=== PATIENT | female | born 1990 | race Caucasian/White ===

== ENCOUNTER 2017-07-28 11:00 | Outpatient (RCR) | payer OTHER, SELFPAY ==
--- NOTE | 2017-03-29 09:28 | HP.PTEVAL ---
Patient's Visit Information DIEGO GIL is a 26 year old F referred to Physical Therapy by Maria Isabel Llamas DO with a diagnosis of Right Medial Meniscus Repair. Date of Evaluation: 03/29/17 Physical Therapist: Edel Joyce - Visit Plan Frequency: 3x /Week Duration: 4 Weeks Plan: Currently PWB of 60%- focus on LE strength - Subjective Subjective: Patient hurt knee during an aquatics class 07/30- has been fighting workers compensation to have surgery approved. Meniscal repair by Dr. Llamas on 03/09/17 at [facility]. Went home immediatly following surgery- lives with father- in a one story home with laundry in the basement- 4 stairs to get into the house with no rail- no problems getting in/out. Has been using axillary crutches since surgery and is 50-60% weight bearing. Saw Dr. Llamas last week who took x-rays and said everything looked good. Prior to seeing MD she was toe touch weight bearing. Sleep: hard to get comfortable- back and side sleeper- sleeping in a bed- will wake her up at night. Pain is a constant 2-3/10. Worst: 7/10 Agg: movement, riding in the car, getting in/out of the car. Its stiff if in position to long. Best: 2/10. Eases: ice and elevate. Feels like its pretty swollen and just feels stiff. Wears the brace all the time except for changing and showering. Standing/sitting in the shower depending on how much it bothers her- but will mostly sits down. Pain is located in the medial side of the knee. No radiating pain- No N/T. Describes pain as dull and achy. Back to April 19, 2016 hoping to be able weight bear. 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 PMHx: none Meds: monastrin - Objective Posture: FH, RS. Gait: axillary crutches- partial weight bearing. Girth: 6 above:65.5 cm, Patella: 45 cm, 6 below: 36 cm. ROM: 0-90 degrees. Strength: Ankle: 5/5, Knee: quad set visible, Hip: 4/5- pain with quad set. Palpation: tender along medial joint line- tender with joint mobilizations - Goals Goal 1:: Patient will be I with HEP and progression Goal Time Frame: 4-6 Weeks Goal 2:: Patient will ambulate >300 feet with a normalized gait pattern and no AD Goal Time Frame: 4-6 Weeks Goal 3:: Patient will demo 0-120 degrees of ROM in the right knee Goal Time Frame: 4-6 Weeks Goal 4:: Patient will demo equal girth to non surgical quad Goal Time Frame: 4-6 Weeks - Rehabilitation Potential Physical Therapy Diagnosis: Patient presents with hypomobility- she has decreased ROM, strength and muscular endurance leading to abnormal gait and poor ability to perform ADL's post surgical intervention Rehabilitation Potential: Good - Anticipated Interventions Patient/Client Instruction: Educate patient on: Benefits of Fitness Program For the Purpose of:: To improve performance and independence with ADL's Therapeutic Exercise to Include: Strength training, Endurance training, Balance training, Agility training, Body mechanics, Postural training, Flexibilty training, Gait and locomotor training, Passive ROM, Active ROM, Dynamic Lumbar Stabilization For the Purpose of:: To improve muscle performance and motor function TENS: Yes Cryotherapy (ice pack, ice massage): Yes Thermo therapy (hot pack): Yes Vasopneumatic device: Yes For the Purpose of:: To decrease pain, To decrease swelling/inflammation Thank you for the opportunity to evaluate your patient. For Medicare and Medicare HMO plans, please review the plan of care and approve it. It will need to be FAXED BACK to us at [phone] for Medicare purposes. Please let me know if there are questions or concerns regarding this plan of care. Physician Signature: Date:
--- NOTE | 2017-07-28 11:50 | HP.PTDCSUM_ITS ---
HP - PT D/C Summary It has been my pleasure to treat DIEGO GIL under orders from Maria Isabel Llamas DO, for the diagnosis of Right Medial Meniscus Repair for a total of 35 visit(s). Discharge Date: Please see the following information for a summary of their discharge status. - Subjective Subjective: Patient reports that she feels 98% better - Pain Right Knee Pain Intensity (Out of 10): 0 - Overall Improvement % Improvement: 98 - Objective Objective/Function: Gait no deviation running or walking. ROm: 0-130 degrees. Girth: Left: 63 cm Right: 64.5 cm. Strength: left extn: 80.8, 86.4, 74.8 right extn: 72.9, 82.4, 81.3 Left flexion: 42.5, 41.4, 42.9 right flexion: 42.8 , 43.8, 41.3 - Goals Goal 1:: Patient will be I with HEP and progression Goal Progress: Goal Met Goal 2:: Patient will ambulate >300 feet with a normalized gait pattern and no AD Goal Progress: Goal Met Goal 3:: Patient will demo 0-120 degrees of ROM in the right knee Goal Progress: Goal Met Goal 4:: Patient will demo equal girth to non surgical quad Goal Progress: Goal Met - Plan Plan: Discharge to HEP - D/C Information If there are questions or concerns regarding this patient's physical therapy, please feel free to call me at [phone]. Thank you for the referral of this patient. Sincerely, Edel Joyce
== END 2017-07-28 19:00 | disposition home or self-care (01) ==
LOC: PT 11:00
PROVIDERS: Family Provider Family Medicine; PCP Family Medicine; Visit Provider Orthopaedic Surgery
DX: Z98.890 Other specified postprocedural states (principal)
CPT/HCPCS: 97016; 97110; 97162; 97530

== ENCOUNTER → 2017-09-07 17:49 | Outpatient (CLI) | payer OTHER, SELFPAY | PROVIDERS: Family Provider Family Medicine; PCP Family Medicine; Visit Provider Physician Assistant | DX: J02.9 Acute pharyngitis, unspecified (principal) | CPT/HCPCS: 87081 ==

== ENCOUNTER → 2017-12-06 18:39 | Outpatient (CLI) | payer OTHER, SELFPAY ==
[2017-12-09 11:53] LABS: HPV Reflexed? NOT INDICATED
== END ==
PROVIDERS: Family Provider Family Medicine; PCP Family Medicine; Visit Provider Nurse Practitioner Women's Health
DX: Z12.4 Encounter for screening for malignant neoplasm of cervix (principal)
CPT/HCPCS: 88175; G0145

== ENCOUNTER → 2020-12-11 | Outpatient (CLI) | payer OTHER, SELFPAY ==
[2020-12-17 14:18] LABS: HPV Reflexed? NOT INDICATED
== END | disposition home or self-care (01) ==
PROVIDERS: PCP Family Medicine; Referring Provider Nurse Practitioner Women's Health; Visit Provider Nurse Practitioner Women's Health
DX: Z12.4 Encounter for screening for malignant neoplasm of cervix (principal)
CPT/HCPCS: 88175; G0145

== ENCOUNTER → 2020-12-12 16:31 | Outpatient (CLI) | payer OTHER, SELFPAY ==
--- NOTE | 2020-12-12 16:37 | US_ITS ---
STUDY: THYROID ULTRASOUND REASON FOR EXAM: Female, 30 years old. enlarged thyroid TECHNIQUE: Ultrasound evaluation of the thyroid was performed with real-time and static huff-scale imaging. COMPARISON: None. FINDINGS: RIGHT LOBE: The right lobe of the thyroid gland measures 5.4 x 1.8 x 1.8 cm. There is a heterogeneous echotexture. There are no demonstrated solid, cystic or complex lesions. LEFT LOBE: The left lobe of the thyroid gland measures 5.2 x 1.9 x 1.7 cm. There is a heterogeneous echotexture. There are no demonstrated solid, cystic or complex lesions. ISTHMUS: The isthmus measures 5 mm thick. . The regional lymph nodes are normal. US/Thyroid IMPRESSION: Thyroiditis but no dominant nodule. Electronically Signed: Devon Cotton MD at 12:19 EDT Tel , Service support ,
== END ==
PROVIDERS: PCP Family Medicine; Referring Provider Nurse Practitioner Women's Health; Visit Provider Nurse Practitioner Women's Health
DX: E04.9 Nontoxic goiter, unspecified (principal)
CPT/HCPCS: 76536

== ENCOUNTER 2021-05-06 13:06 | Outpatient (CLI) | payer OTHER, SELFPAY ==
--- NOTE | 2021-05-06 13:11 | US_ITS ---
STUDY: ULTRASOUND BREAST - RIGHT REASON FOR EXAM: Female, 30 years old. Palpable lump in the right breast. TECHNIQUE: Axial and longitudinal images of the RIGHT breast were performed with a high resolution ultrasound transducer. # OF IMAGES: 22 COMPARISON: Comparison is made with prior mammogram done earlier today. FINDINGS: RIGHT Breast: The palpable abnormality corresponds to a 1.7 cm x 1.3 cm x 1.1 cm irregular heterogeneous nodular density at the 8 o''clock position of the breast at 2 cm from the nipple. Calcifications are seen within it. A biopsy is strongly recommended. US/Breast Limited Unilateral IMPRESSION: 1.7 cm x 1.3 cm x 1.1 cm irregular heterogeneous nodular density at the o''clock position of the breast at 2 cm from nipple. Increased vascularity and calcifications are seen. Biopsy is strongly recommended. ASSESSMENT CATEGORY: BIRADS Category 5: Highly Suggestive of Malignancy - Appropriate Action Should Be Taken. A letter regarding these results will be sent to the patient by the facility within 30 days. Electronically Signed: August Beach MD at 15:13 EST ,
--- NOTE | 2021-05-06 13:11 | BI_ITS ---
MAMMOGRAPHY - BILATERAL DIAGNOSTIC REASON FOR EXAM: Female, 30 years old. Right breast lump just inferior and lateral to the right nipple. PERTINENT HISTORY: Aunt with breast cancer. TECHNIQUE: Digital bilateral breast francisco (3D mammographic acquisition) in the CC and MLO projections. 2-D mediolateral oblique (MLO) and craniocaudad (CC) views of both breasts were obtained. CAD: Full Field Digital Mammography with Computer Added Detection was performed. COMPARISON: None. Baseline examination. FINDINGS: Breast Composition: The breasts are extremely dense, which lowers the sensitivity of mammography. The palpable and abnormality corresponds to a 1.9 cm x 0.7 cm nodular density with microcalcifications in the slightly upper lateral portion of the right breast. Correlation with ultrasound is recommended. Small benign-appearing bilateral axillary lymph nodes. No other significant abnormalities are identified. BI/DIAG MAMM W/CAD, BILAT IMPRESSION: The palpable normality corresponds to a 1.9 cm x 0.7 cm nodule with microcalcifications in the slightly upper lateral aspect of the right breast. Correlation with ultrasound is recommended. ASSESSMENT CATEGORY: BIRADS Category 0: Incomplete. Need additional imaging evaluation. A letter regarding these results will be sent to the patient by the facility within 30 days. Approximately 10% of breast cancers are not detected by mammography. A normal mammogram should not delay biopsy of a clinically suspicious abnormality. Electronically Signed: August Beach MD at 14:19 EST ,
== END 2021-05-06 23:59 | disposition short-term general hospital (02) ==
LOC: OPBI 13:08
PROVIDERS: PCP Family Medicine; Referring Provider Nurse Practitioner Women's Health; Visit Provider Nurse Practitioner Women's Health
DX: N63.10 Unspecified lump in the right breast, unspecified quadrant (principal)
CPT/HCPCS: 76642; 77062; 77066; G0279

== ENCOUNTER 2021-05-07 13:11 | Outpatient (CLI) | payer OTHER, SELFPAY ==
--- NOTE | 2021-05-07 | IMM_PTH ---
PATIENT: DIEGO GIL LOC: [facility] U#:[id number] AGE/SX: 30/F ROOM: RE05/07/[address]: Dr. Des Acosta MD : 1990 BED: DIS: 05/07/2021 SPEC #: [id number] RECD: 05/08/21 10:23 STATUS: LARA REQ #: [id number] KHARI: 05/07/21 00:[address]: Des Acosta DEPT: IMMUNOHISTOCHEMISTRY RECD BY: Elyse Gonzalez ENTERED: 05/08/21 10:25 SP TYPE: IMMUNO OTHR DR: Dr. Chas Bazzi DO Tissues: Right breast, NOS Procedures: CALPONIN-1 (add) CK5-6 (add) CK8 (add) E-CAD (add) HER2 TYRON (add) KI-67 (add) P53 (add) CA (add) P40 (add) ER (initial) PHYSICIAN & [address] [address] SPECIMEN INFORMATION: Tissue Source: Right breast Clinical Info: Right breast mass Specimen Number: [id number] CPT code: 30137, 77032 x6, 12647 x3 METHODOLOGY: Deparaffinized sections of prefer/formalin-fixed tissue or PAP/DQ stained slides are incubated with monoclonal/polyclonal antibodies/oligonucleotide probes. Localization is made via biotin free immunoperoxidase method. Appropriate controls are performed and reacted as expected. Results on target cell population are indicated in the following table: RESULTS: ANTIBODY / CLONE RESULT E-Cad (ECH-6) positive CK8 (14zdeyS77) positive Calponin-1 (AK980U) negative CK5-6 (D5 & 1684) positive, focal P40 (BC28) positive, rare cells P53 (DO-7) positive, focal Ki-67 (30-9) positive, moderate, ~40% MORPHOMETRIC ANALYSIS ER (clone 6F11) 66%, weak intensity CA (clone 16/1E2) 7%, weak intensity Her-2Neu (clone CB11) 3+ The prognostic test for HER2 is performed on formalin-fixed paraffin embedded tissue. A 3+ (positive) staining pattern is defined as intense, homogeneous, complete, circumferential membranous staining in >10% of contiguous tumor cells. A similar weak (2+) staining pattern is interpreted as equivocal. RICHARD follow-up testing is recommended for all equivocal cases. Positivity/negativity for ER/CA is reported if > or < 1% of the tumor cells are immuno- reactive, respectively. The ASCO/CAP criteria is used for scoring. Reference: Journal of Clinical Oncology, 2013; 31:0209-4068 & 2010; 16:4980-9998. Duration of fixation: 8 Hrs; Sample Adequate: Yes. These assays have not been validated on decalcified tissues. Results should be interpreted with caution given the likelihood of false negativity on decalcified specimens. These tests were developed and their performance characteristics determined by [facility]. They may not have been cleared or approved by the U.S. Food and Drug Administration. The FDA has determined that such clearance or approval is not necessary. The above immunohistochemical/dualISH markers are ordered and reviewed by the Pathologist. INTERPRETATION: Right breast, biopsy: Invasive ductal carcinoma, nuclear grade 2. Positive for estrogen receptors (favorable prognostic indicator). Positive for progesterone receptors (favorable prognostic indicator). Positive for overexpression of LPD6krb. SJ:thomas 05/11/2021
--- NOTE | 2021-05-07 11:30 | BRBX_PTH ---
PATIENT: DIEGO GIL LOC: [facility] U#:[id number] AGE/SX: 30/F ROOM: RE05/07/[address]: Dr. Des Acosta MD : 1990 BED: DIS: 05/07/2021 SPEC #: [id number] RECD: 05/07/21 12:08 STATUS: LARA REMyrtle #: [id number] KHARI: 05/07/21 11:[address]: Des Acosta DEPT: SURGICAL PATHOLOGY RECD BY: Chanda Justice ENTERED: 05/07/21 13:30 SP TYPE: BREAST BX OTHR DR: Dr. Chas Bazzi, DO Tissues: Right breast, NOS Procedures: Surgery Specimen Level IV HEADER OPERATION: Right breast biopsy PRE-OP DIAGNOSIS: Right breast mass TISSUE SUBMITTED: Right breast tissue MICROSCOPIC DIAGNOSIS Right breast mass, core biopsy: Invasive ductal carcinoma, nuclear grade 2 (1.2 cm in greatest length). See comment. SJ:thomas 05/08/2021 COMMENT Immunohistochemistry ([id number]) supports the above diagnosis. ER/AK/Tuc1ntj studies are being performed on sections of tumor and the results from this study will be reported separately ([id number]). Case has been reviewed in consultation with Dr. Murphy who concurs with the above diagnosis. IDC:AM MICROSCOPIC DESCRIPTION Slides are reviewed. GROSS DESCRIPTION Received in fixative is one container labeled with the patient's name and designated right breast. The specimen consists of multiple elongated fragments of lópez-yellow fibroadipose tissue that in aggregate measure 2.5 x 0.3 x 0.1 cm. The entire specimen is submitted in one cassette. / SERENE:thomas 05/07/2021 TC:0 CPT: 11273 ADDENDUM ADDENDUM ADDENDUM ADDENDUM ADDENDUM ADDENDUM ADDENDUM ADDENDUM ADDENDUM ADDENDUM ADDENDUM 10/13/2021 09:39 ADDENDUM 10/13/2021 09:39 ADDENDUM 10/13/2021 09:39 ADDENDUM 10/13/2021 09:39 ADDENDUM 10/13/2021 09:39 This addendum is added to incorporate an outside pathology consultation report. The case was examined at [facility] (#[id number]) and the following diagnosis was rendered. Right breast mass, core biopsy: Invasive ductal carcinoma, grade 2 (score: tubule 3, nuclear 2, mitotic 1), 1.2 cm in greatest length. Please see complete above mentioned consultation report in EMR
== END 2021-05-07 23:59 | disposition short-term general hospital (02) ==
LOC: LABSPEC 13:16
PROVIDERS: PCP Family Medicine; Visit Provider Surgery
DX: C50.911 Malignant neoplasm of unspecified site of right female breast (principal)
CPT/HCPCS: 88305; 88341; 88342

== ENCOUNTER 2021-05-13 11:58 | Outpatient (CLI) | payer OTHER, SELFPAY ==
--- NOTE | 2021-05-13 12:00 | US_ITS ---
STUDY: SUPERFICIAL ULTRASOUND - RIGHT AXILLARY REGION. REASON FOR EXAM: Female, 30 years old. BREAST CA, ASSESS LYMPH NODES -- ATTN: RIGHT AXILLA TECHNIQUE: A superficial ultrasound was performed with real-time and static huff-scale imaging. COMPARISON: None. FINDINGS: The right axillary region was examined by ultrasound. No sonographic abnormality is seen. US/Ext Non Vasc Limited/Soft Tiss IMPRESSION: No sonographic abnormality is seen. Electronically Signed: August Beach MD at 13:26 EST ,
== END 2021-05-13 23:59 | disposition short-term general hospital (02) ==
LOC: OPUS 11:58
PROVIDERS: PCP Family Medicine; Visit Provider Internal Medicine Hematology & Oncology
DX: C50.911 Malignant neoplasm of unspecified site of right female breast (principal)
CPT/HCPCS: 76882

== ENCOUNTER 2021-05-22 09:24 | Day surgery (SDC) | payer OTHER, SELFPAY ==
[2021-05-22] MEDS: Lactated Ringers 1,000 ML 15 ML IV (09:48)
[2021-05-22 09:49] VITALS: BP 117/77; PULSE 99; RESP 16; TEMP 37.1; O2SAT 100; BMI 33.5
--- NOTE | 2021-05-22 09:57 | HP.PCM.SX_ITS ---
HPI - General HPI Narrative DIEGO GIL, is a 30 F who presents for port placement. Patient was recently diagnosed with right breast cancer and requires port for neoadjuvant therapy. [facility] Medical History (Updated 05/22/21 @ 09:[address] Des Acosta MD) Alcohol use Breast cancer of upper-outer quadrant of right female breast Cancer Chronic headaches COVID-19 Depression Encounter for education Fibromyalgia Injury of head and neck Kidney stones Non-smoker Wears contact lenses Home Medications lidocaine-prilocaine 2.5 %-2.5 % topical cream 1 applic TOPICAL ONCE PRN 30 Days #30 g 05/13/21 [Rx Last Taken Unknown] ondansetron 8 mg disintegrating tablet 8 mg PO Q8H PRN #30 tab 05/13/21 [Rx Last Taken Unknown] prochlorperazine maleate 10 mg tablet 10 mg PO Q6H PRN #30 tab 05/13/21 [Rx Last Taken Unknown] Allergy/AdvReac Type Severity Reaction Status Date / Time FLU VACCINE Allergy Hives Uncoded 05/22/21 09:34 Family History Father Alcoholism Mother Hypertension Hyperlipidemia Aunt Breast cancer 2 great aunts - both maternal 1 aunt - paternal Surgical History S/P medial meniscus repair of right knee S/P tonsillectomy Social History household members: other details: fiancee current occupational status: employed 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 Smoking Status: Never smoker Electronic Cigarette Use: not used second hand exposure: Yes alcohol intake: current alcohol intake frequency: holidays/special occasions only details: occasionally/socially substance use type: does not use caffeine: No seatbelt use: always do you feel safe at home: Yes Vital Signs Vital Signs Vital Signs: 05/22/21 09:49 Temperature 98.7 F Temperature Source Temporal Pulse Rate 99 Respiratory Rate 16 Respiratory Pattern Normal Blood Pressure 117/77 Blood Pressure Mean 90 Blood Pressure Source Monitor Blood Pressure Position Semi-Fowlers Blood Pressure Location Right Arm Pulse Ox 100 Oxygen Delivery Method Room Air Weight Weight: 189 lb 9.561 oz Body Mass Index (BMI) 33.5 Physical Exam Const alert and oriented x3 Resp normal respiratory effort and normal air movement Cardio regular rate and regular rhythm GI soft to palpation, non-tender and non-distended Assessment and Plan Assessment and Plan (1) Encounter for insertion of venous access port: Status: Acute Plan: Patient requires chest port for neoadjuvant therapy for right breast cancer. Plan for left chest port placement utilizing left IJ. I discussed the risks with her including over the limited to bleeding, infection, pneumothorax or line infection and DVT. Patient understands the risks and is willing to proceed. Des Acosta MD Pager: [facility] [address] [place] [address], [address] [place] [address] Office:
[2021-05-22 10:00] LABS: Internal QC Validated? YES +Cl - CLEAR BKGD; Pregnancy, Urine Negative Negative
[2021-05-22] MEDS: Cefazolin 2 GM in 0.9% Normal Saline 100 ML IV (10:41)
[2021-05-22] MEDS: Lidocaine 1%/Epi 1:200 (30ml) 30 ML AMPUL (10:41)
--- NOTE | 2021-05-22 10:41 | RAD_ITS ---
STUDY: X-RAY CHEST REASON FOR EXAM: Female, 30 years old. Line placement -- in pacu TECHNIQUE: Single AP portable view of the chest. COMPARISON: None. FINDINGS: A left-sided portacatheter is in place. The tip is at the junction of the superior vena cava and right atrium. The lungs are clear and expanded. There is no demonstrated pleural abnormality. Normal size heart. Normal mediastinum and megan. Normal visualized pulmonary arteries. Normal visualized aortic arch and descending thoracic aorta. Normal visualized thoracic spine. Normal visualized ribs, clavicles, and shoulders. There is no demonstrated abnormality of the visualized soft tissue structures of the upper abdomen. RAD/O.R. Fluoro for CVP/PICC/PORT IMPRESSION: The tip of the left-sided moon catheter is at the junction of the superior vena cava and right atrium. Electronically Signed: August Beach MD at 12:12 EST ,
[2021-05-22 11:14] VITALS: BP 115/67; BP 117/77; PULSE 90; RESP 16; TEMP 37.3; O2SAT 100
[2021-05-22 11:20] VITALS: BP 108/62; BP 117/77; PULSE 89; RESP 14; O2SAT 99
--- NOTE | 2021-05-22 11:21 | RAD_ITS ---
STUDY: X-RAY CHEST REASON FOR EXAM: Female, 30 years old. Line placement -- in pacu TECHNIQUE: Single AP portable view of the chest. COMPARISON: None. FINDINGS: A left-sided portacatheter is in place. The tip is at the junction of the superior vena cava and right atrium. The lungs are clear and expanded. There is no demonstrated pleural abnormality. Normal size heart. Normal mediastinum and megan. Normal visualized pulmonary arteries. Normal visualized aortic arch and descending thoracic aorta. Normal visualized thoracic spine. Normal visualized ribs, clavicles, and shoulders. There is no demonstrated abnormality of the visualized soft tissue structures of the upper abdomen. RAD/CXR for Line Placement IMPRESSION: The tip of the left-sided moon catheter is at the junction of the superior vena cava and right atrium. Electronically Signed: August Beach MD at 12:12 EST ,
--- NOTE | 2021-05-22 11:21 | PCM.OPRPT ---
Problems Associated Problem List Diagnoses (1) Encounter for insertion of venous access port: Report of Operation Date of Procedure: 05/22/21 Pre-Operative Diagnosis: Need for vascular access port Post-Operative Diagnosis: Same Surgery/Procedure Performed:: Ultrasound and fluoroscopy guided left chest port placement utilizing left IJ Description of Procedure: After obtaining informed consent patient was brought back to the operating room MAC anesthesia was induced and the left chest and neck were prepped in normal sterile fashion. Ultrasound was used to evaluate both IJs and the left IJ was selected. Next, using a needle, the left IJ was accessed and a guidewire was passed on into the superior vena cava under fluoroscopy guidance. A small incision was made over the puncture site and the dilator introducer was placed over the guidewire. Next this was capped and the pocket was made for the port. 1% lidocaine with epinephrine was injected in the proposed port site. An incision was made with scalpel. Electrocautery was used to make a pocket under the skin and subcutaneous tissue. Hemostasis was obtained. Next, the catheter was tunneled up to the neck incision site and placed through the introducer. The peel-away introducer was removed and the position of the catheter was confirmed on fluoroscopy. Next, the catheter was trimmed and attached to the port with the locking device. Interrupted 2-0 Vicryl sutures were used to anchor the port to the chest wall and then the port was placed inside the pocket. The pocket was then flushed with saline and the port irrigated with saline. There was good blood return and the port flushed easily. Next, heparin was injected into the port. The skin was closed with subcutaneous interrupted 3-0 Vicryl sutures. A single 3-0 Vicryl sutures placed under the skin at the neck incision site. Steri-Strips were placed as well as op sites. Patient tolerated procedure well, was taken to PACU in stable condition. Chest x-ray will be obtained. Grafts/Implants Used: 8 [employer]es PowerPort Admit VTE Documentation VTE Mechan Device Prophylaxis: SCD's
[2021-05-22 11:25] VITALS: BP 109/67; BP 117/77; PULSE 87; RESP 14; O2SAT 99
--- NOTE | 2021-05-22 11:25 | EX.PCM.DISCH ---
Discharge Instructions Procedure Port-A-Cath Diet Discharge Diet: Light diet - advance as tolerated (Pain medication may cause nausea. You should typically eat light foods as you take your pain medication.) Activity Discharge Activity: Return to Normal Activity and May Shower (with your bandage in place in 1-2 days after surgery. DO NOT SHOWER WHEN YOUR PORT IS ACCESSED.) Dressing / Incision Call your doctor if your incision/area has: Continuous Slow Oozing, Sudden Increased Bleeding, Increased Pain/ Swelling, Increased Redness and Foul Smelling Discharge Call your doctor if you observe: Fever of 101 or Higher Remove Dressing in: 2 days (Remove bandages in 2 days, remove Steri-Strips in 7 to 10 days.) Cleanse incision/area with: Soap & Water Follow Up Care Please Follow Up With: Des Acosta MD When: as needed [phone] Test Results: Test results from this visit will be discussed in further detail at your follow-up appointment, if applicable. Discharge Plan Admission Attending Provider: Des Acosta Primary Care Provider: Chas Bazzi Discharge Orders/Prescriptions Prescriptions: No Action prochlorperazine maleate 10 mg tablet 10 mg PO Q6H PRN (Reason: nausea and vomiting) Qty: 30 RF: 2 ondansetron 8 mg tablet,disintegrating 8 mg PO Q8H PRN (Reason: nausea and vomiting) Qty: 30 RF: 2 lidocaine-prilocaine 2.5-2.5 % cream 1 applic topical ONCE PRN (Reason: port access) 30 Days Qty: 30 RF: 2 Referrals / Follow Up: Chas Bazzi DO [Primary Care Provider] - Disposition Disposition (needs filled in before D/C Order can be placed): Home, Self Care
[2021-05-22 11:30] VITALS: BP 106/63; BP 117/77; PULSE 86; RESP 16; TEMP 37.1; O2SAT 99
[2021-05-22 12:35] VITALS: BP 105/63; BP 117/77; PULSE 85; RESP 16; TEMP 36.6; O2SAT 100
== END 2021-05-22 23:59 | disposition home or self-care (01) ==
LOC: SDC 09:25 → AC 09:26
PROVIDERS: Anesthesiology; PCP Family Medicine; Referring Provider Surgery; Visit Provider Surgery
PROC: (CPT 36561; principal; 2021-05-22 10:45)
DX: Z45.2 Encounter for adjustment and management of vascular access device (principal); C50.411 Malignant neoplasm of upper-outer quadrant of right female breast; F32.A Depression, unspecified; Z86.16 Personal history of COVID-19; M79.7 Fibromyalgia
CPT/HCPCS: 36561; 00532; 71045; 77001; 81025; C1788

== ENCOUNTER 2021-05-29 09:44 | Outpatient (CLI) | payer OTHER, SELFPAY ==
--- NOTE | 2021-05-29 09:48 | MRI_ITS ---
STUDY: BILATERAL BREAST MR WITHOUT AND WITH CONTRAST REASON FOR EXAM: Female, 30 years old. Newly diagnosed right breast cancer. TECHNIQUE: Multi-sequence multi-echo imaging of both breasts was performed with a dedicated breast coil. T1-weighted and T2-weighted images were performed before the administration of contrast. T1-weighted images were also performed after the administration of 17 ml of Dotarem contrast without complications. COMPARISON: Bilateral mammograms dated 05/06/2021, right diagnostic mammogram dated 05/06/2021 and right breast ultrasound dated 05/06/2021. FINDINGS: RIGHT BREAST: The breast tissue is heterogeneously dense with no background enhancement. Irregular enhancing mass in the right breast at the 8 o''clock position measuring 2.9 cm x 3.2 cm x 2.1 cm and corresponding to the ultrasonographic abnormality. LEFT BREAST: The breast tissue is heterogeneously dense with no background enhancement. There are no abnormal enhancing masses or areas of non-mass enhancement in the left breast. Shotty axillary lymph nodes bilaterally. There is no abnormality in the visualized regions of the chest or liver. MRI/Breast Bilateral W/O and W IMPRESSION: Right irregular enhancing mass at the 8 o''clock position corresponding to the ultrasonographic abnormality. No other suspicious masses or abnormal lymph nodes. CATEGORY: BIRADS Category 6: Known Biopsy-Proven Malignancy - Appropriate Action Should Be Taken. A letter regarding these results will be sent to the patient by the facility within 30 days. Electronically Signed: Joshua Garland MD at 12:08 EST ,
--- NOTE | 2021-05-29 09:48 | ECHODONC_ITS ---
Reason For Study: Pre Chemo, Rt Breast CA Procedure This was a 2D Doppler, Color Flow transthoracic echocardiogram. Myocardial strain analysis was performed in this exam to aid in the assessment of cardiac function. Exam performed in department. Left Ventricle Normal LV size. Left ventricular systolic function is normal. The estimated ejection fraction is 60 %. The global longitudinal strain = -20 % (normal). No evidence for diastolic dysfunction. No regional wall motion abnormalities noted. Right Ventricle Normal RV size. Normal systolic function. Atria Normal left atrium. Normal right atrium. No doppler evidence for ASD. Mitral Valve There is no mitral annular calcification. Equivocal mitral valve prolapse. Trivial mitral valve insufficiency. Tricuspid Valve Normal tricuspid valve. Trivial tricuspid valve insufficiency. Right ventricular systolic pressure estimated to be 21 mmHg. Aortic Valve Trisinus/trileaflet aortic valve. Normal aortic valve. Pulmonic Valve The pulmonic valve is not well visualized. Mild (1+) pulmonic valve insufficiency. Great Vessels Normal sized aortic root. Pericardium/Pleural No pericardial effusion. MMode/2D Measurements & Calculations LVIDd: 5.2 cm IVSd: 0.62 cm Ao root diam: 2.4 cm LVIDs: 3.4 cm LVPWd: 0.64 cm RVDd: 3.3 cm FS: 34.1 % LAV(MOD-bp): 32.0 ml LA A4 area: 13.4 cm2 LA dimension(2D): 3.1 cm LAV(MOD-bp) Indexed: 16.9 ml/m2 LAV(MOD-sp2): 28.4 ml LAV(MOD-sp4): 28.9 ml RA A4 area: 12.4 cm2 Doppler Measurements & Calculations MV E max jonathon: 81.9 cm/sec Lat Peak E' Jonathon: 17.8 cm/sec Med Peak E' Jonathon: 15.2 cm/sec MV A max jonathon: 49.8 cm/sec E/E' lat: 4.6 E/E' med: 5.4 MV E/A: 1.6 Ao V2 max: 119.7 cm/sec LV V1 max: 83.4 cm/sec PA V2 max: 84.6 cm/sec Ao max P.7 mmHg LV V1 max P.8 mmHg Ao V2 mean: 82.6 cm/sec Ao mean P.0 mmHg Ao V2 VTI: 24.4 cm PI end-d jonathon: 87.1 cm/sec TR max jonathon: 213.8 cm/sec TR max P.3 mmHg ECHO/ONC Echo Complete Interpretation Summary Left ventricular systolic function is normal. The estimated ejection fraction is 60 %. The global longitudinal strain = -20 % (normal). Equivocal mitral valve prolapse. Trivial mitral valve insufficiency. Trivial tricuspid valve insufficiency. Mild (1+) pulmonic valve insufficiency. Right ventricular systolic pressure estimated to be 21 mmHg. No evidence for diastolic dysfunction. Ordering Physician: Thierry Carrizales Referring Physician: Chas Bazzi Performed By: Sandra Estrada RDCS, RVT
== END 2021-05-29 23:59 | disposition home or self-care (01) ==
LOC: MRI 09:45
PROVIDERS: PCP Family Medicine; Referring Provider Internal Medicine Hematology & Oncology; Visit Provider Internal Medicine Hematology & Oncology
DX: C50.511 Malignant neoplasm of lower-outer quadrant of right female breast (principal); I37.1 Nonrheumatic pulmonary valve insufficiency
CPT/HCPCS: 77049; 93306; 93356; A9575; A4216; C8908

== ENCOUNTER 2021-06-02 09:26 | Inpatient (IN) | payer OTHER, SELFPAY ==
[2021-06-02] VITALS (13 sets, daily range): BP systolic 89–123; BP diastolic 45–74; PULSE 89–112; RESP 15–26; TEMP 37.2–39.3; O2SAT 95–99; BMI 33.6; BMI 34.7
--- NOTE | 2021-06-02 09:42 | RAD_ITS ---
STUDY: X-RAY CHEST REASON FOR EXAM: Female, 30 years old. Fever, chemo, pneumonia TECHNIQUE: PA and lateral views of the chest. COMPARISON: Comparison is made with prior study dated 05/22/2021. FINDINGS: A left-sided portacatheter is seen with the tip at the junction of the superior vena cava and right atrium. The lungs are clear and expanded. There is no demonstrated pleural abnormality. Normal size heart. Normal mediastinum and megan. Normal visualized pulmonary arteries. Normal visualized aortic arch and descending thoracic aorta. Normal visualized thoracic spine. Normal visualized ribs, clavicles, and shoulders. There is no demonstrated abnormality of the visualized soft tissue structures of the upper abdomen. RAD/Chest PA and Lateral IMPRESSION: Normal x-ray examination of the chest. Electronically Signed: August Beach MD at 10:51 EST ,
--- NOTE | 2021-06-02 09:46 | EX.ED.DYSGE1 ---
HPI History of Present Illness Chief Complaint: Fever Informant: patient Narrative Narrative: Patient presents with fever. This patient is overall healthy other than being recently diagnosed with breast cancer. She had a Mediport placed in the left upper chest 11 days ago. This has been doing well and was used yesterday for her first ever chemotherapy. She started having fevers in the middle of the night. She does not have specific symptoms of infection such as cough, sinus congestion, rash, sore areas dysuria etc. The patient did have Covid back in February. She states she has had a small lingering cough ever since but it is not worsening or changing. She is not short of breath. She has not been having continual fevers from then. However, she did have a fever 2 weeks ago on Tuesday. It went away so they still did the Mediport. She then had another slight fever that was lower grade 1 week ago on Tuesday. This is now her third Tuesday with a fever and this 1 is higher than the others. There has been no travel. Nothing makes this better or worse. She contacted her oncologist who recommended she come in here for evaluation and work-up. [facility] Medical History Alcohol use Breast cancer of upper-outer quadrant of right female breast Cancer Chronic headaches COVID-19 Depression Encounter for education Fibromyalgia Injury of head and neck Kidney stones Non-smoker Wears contact lenses Home Medications lidocaine-prilocaine 2.5 %-2.5 % topical cream 1 applic TOPICAL ONCE PRN 30 Days #30 g 05/13/21 [Rx Last Taken Unknown] ondansetron 8 mg disintegrating tablet 8 mg PO Q8H PRN #30 tab 05/13/21 [Rx Last Taken Unknown] prochlorperazine maleate 10 mg tablet 10 mg PO Q6H PRN #30 tab 05/13/21 [Rx Last Taken Unknown] Allergy/AdvReac Type Severity Reaction Status Date / Time FLU VACCINE Allergy Hives Uncoded 06/02/21 09:30 Family History Father Alcoholism Mother Hypertension Hyperlipidemia Aunt Breast cancer 2 great aunts - both maternal 1 aunt - paternal Surgical History S/P medial meniscus repair of right knee S/P tonsillectomy Social History household members: other details: serena current occupational status: employed 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 Smoking Status: Never smoker Electronic Cigarette Use: not used second hand exposure: Yes alcohol intake: current alcohol intake frequency: holidays/special occasions only details: occasionally/socially substance use type: does not use caffeine: No seatbelt use: always do you feel safe at home: Yes ROS ROS ED Constitutional Constitutional ED: Reports chills, fever(s) and subjective Eyes Eyes: Denies blurry vision ENT ENT ED: Denies rhinorrhea or sore throat Cardiovascular Cardiovascular: Denies chest pain or palpitations Respiratory/Chest Respiratory/Chest: Reports cough and other Details: Very mild chronic cough since Covid but no recent change. ; Denies dyspnea or sputum Gastrointestinal Gastrointestinal: Denies diarrhea, nausea or vomiting Genitourinary Genitourinary ED: Denies dysuria, hematuria or urinary frequency Musculoskeletal Musculoskeletal: Denies myalgias Integumentary Denies rash Neurologic Neurologic: Denies headache(s) Endocrine Endocrinology: Denies polydipsia or polyuria Allergic/Immunologic Allergic/Immunologic ED: Denies mouth swelling or urticaria EXAM Physical Exam Const Vital Signs: 06/02/21 09:28 06/02/21 09:31 06/02/21 10:18 Temperature 100.5 F H 100.5 F H 100.5 F H Temperature Source Oral Oral Oral Pulse Rate 112 H 112 H 112 H Respiratory Rate 18 18 18 Respiratory Effort Respiratory Pattern Blood Pressure 123/70 H 123/70 H 123/70 H Blood Pressure Mean 87 87 87 Pulse Ox 99 99 99 Oxygen Delivery Method Room Air Room Air Room Air 06/02/21 10:19 06/02/21 11:39 06/02/21 12:20 Temperature 99.3 F H 99.1 F Temperature Source Temporal Oral Pulse Rate 89 99 Respiratory Rate 16 18 Respiratory Effort Normal Non-Labored Respiratory Pattern Normal Blood Pressure 90/45 L 95/53 L Blood Pressure Mean 60 67 Pulse Ox 99 Oxygen Delivery Method Room Air Room Air 06/02/21 14:33 06/02/21 16:31 06/02/21 17:01 Temperature 102.1 F H 101.7 F H Temperature Source Oral Oral Pulse Rate 103 H 107 H Respiratory Rate 26 H 18 Respiratory Effort Respiratory Pattern Blood Pressure 110/74 89/47 L 91/47 L Blood Pressure Mean 86 61 61 Pulse Ox 99 Oxygen Delivery Method Room Air Positive well nourished and well developed General Appearance ED: well developed and NAD; Negative for cyanotic or diaphoretic HEENT Reports moist mucous membranes Eyes PERRL and EOMs intact bilaterally Neck no JVD Chest Wall inspection of chest normal Chest Narrative: Left upper chest wall shows normal Mediport with no sign of infection or inflammation or redness. Resp normal respiratory effort and clear to auscultation bilaterally Auscultation: Negative for rales, rhonchi or wheezes Cardio regular rate and regular rhythm GI normal to inspection, nondistended, normoactive bowel sounds and non-tender Palpation: soft Back/Spine no CVA tenderness Extremity normal to inspection General Extremety ED: Negative for edema or tenderness General Extremity: Negative for edema Neuro oriented x3 Sensorium / Orientation: alert Psych mental status grossly normal Skin no rashes or lesions noted and no wounds MDM MDM MDM Narrative Medical decision making narrative: Patient's white count is quite high at 17.9. However, I did find that she had steroids yesterday at the time of her chemo. I did discuss case with Dr. Carrizales. He felt as long as her blood pressure improves and her urine is clean they can probably follow her up as an outpatient. Her urine did come back good. Her electrolytes are little however her blood pressure stayed a bit low. I gave her more fluids. She has received 2 L. Her lactate did come down but her blood pressure actually came down to as low as 87/45. Is now on that little bit. Patient states her normal blood pressure is about 120/80. She has had a lower blood pressure at chemotherapy areas yesterday but she thinks it was about 100. She has never had it in the low 90s to her knowledge. My concern is that her blood pressure is still somewhat soft despite 2 L of fluid. She has a recent med port that was accessed yesterday and then again today. She will be placed in observation. Lab Data Attestation: I reviewed the patient's lab results. Labs: Laboratory Results - last 24 hr 06/02/21 06/02/21 06/02/21 09:55 09:55 09:55 WBC 17.9 H RBC 4.22 Hgb 13.2 Hct 36.7 L MCV 87.0 MCH 31.3 MCHC 36.0 RDW Std Deviation 39.9 RDW Coeff of Jonnie 12.8 Plt Count 255 MPV 9.9 Immature Gran % (Auto) 0.600 Neut % (Auto) 95.3 H Lymph % (Auto) 2.4 L [place] % (Auto) 1.6 Eos % (Auto) 0.0 Baso % (Auto) 0.1 Absolute Neuts (auto) 17.1 H Absolute Lymphs (auto) 0.43 L Nucleated RBC % 0 Sodium 136 Potassium 3.2 L Chloride 103 Carbon Dioxide 23.0 Anion Gap 10 BUN 11 Creatinine 0.90 Estim Creat Clear Calc 76.30 Est GFR (MDRD) Af Amer 94 Est GFR (MDRD) Non-Af 78 BUN/Creatinine Ratio 12.2 Glucose 102 Lactic Acid 3.3 H* Calcium 8.2 L Urine Color Urine Clarity Urine pH Ur Specific [place] Urine Protein Urine Glucose (UA) Urine Ketones Urine Occult Blood Urine Nitrite Urine Bilirubin Urine Urobilinogen Ur Leukocyte Esterase Urine RBC Urine WBC Ur Squamous Epith Cells Urine Bacteria Urine Mucus 06/02/21 06/02/21 12:55 15:10 WBC RBC Hgb Hct MCV MCH MCHC RDW Std Deviation RDW Coeff of Jonnie Plt Count MPV Immature Gran % (Auto) Neut % (Auto) Lymph % (Auto) [place] % (Auto) Eos % (Auto) Baso % (Auto) Absolute Neuts (auto) Absolute Lymphs (auto) Nucleated RBC % Sodium Potassium Chloride Carbon Dioxide Anion Gap BUN Creatinine Estim Creat Clear Calc Est GFR (MDRD) Af Amer Est GFR (MDRD) Non-Af BUN/Creatinine Ratio Glucose Lactic Acid 1.6 Calcium Urine Color Yellow Urine Clarity Clear Urine pH 6.0 Ur Specific [place] 1.010 Urine Protein Negative Urine Glucose (UA) Normal Urine Ketones Negative Urine Occult Blood 250 H Urine Nitrite Negative Urine Bilirubin Negative Urine Urobilinogen Normal Ur Leukocyte Esterase Negative Urine RBC 0-5 SEEN Urine WBC 0-5 SEEN Ur Squamous Epith Cells 0-5 SEEN Urine Bacteria RARE Urine Mucus 0 SEEN Radiography Diagnostic Testing: Clinical Impression(s) from Imaging Studies Chest X-Ray 06/02/21 09:42 IMPRESSION: Normal x-ray examination of the chest. Electronically Signed: August Beach MD at 10:51 EST , Discharge Plan Triage Chief Complaint: Fever ED Provider: Riaz Hernández Dx/Rx/DC Orders Clinical Impression: Breast cancer of upper-outer quadrant of right female breast, Fever, Hypotension, Acidosis, lactic Prescriptions: No Action prochlorperazine maleate 10 mg tablet 10 mg PO Q6H PRN (Reason: nausea and vomiting) Qty: 30 RF: 2 ondansetron 8 mg tablet,disintegrating 8 mg PO Q8H PRN (Reason: nausea and vomiting) Qty: 30 RF: 2 lidocaine-prilocaine 2.5-2.5 % cream 1 applic topical ONCE PRN (Reason: port access) 30 Days Qty: 30 RF: 2 Primary Care Provider: Chas Bazzi Referrals: Chas Bazzi, [Primary Care Provider] - Disposition Disposition: Acute Care Hospital [facility]
[2021-06-02] MEDS: Acetaminophen 500 MG Tablet 1000 MG PO (10:14)
[2021-06-02 10:15] LABS: Absolute Lymphocyte Count 0.43 X10^3/uL (0.83-4.51); Absolute Neutrophil Count 17.1 X10^3/uL (2.0-7.7); Basophil# 0.02 X10^3/uL; Basophil% 0.1 % (0-1); Hematocrit 36.7 % (37-47); Hemoglobin 13.2 g/dL (12.0-15.0); Lymphocyte # 0.43 X10^3/ul (0.83-4.51); Lymphocyte % 2.4 % (19-41); Mean Corpuscular Hgb 31.3 pg (27.0-32.0); Mean Platelet Vol. 9.9 fl (6.2-12.0); Monocyte# 0.29 X10^3/uL; Monocyte% 1.6 % (0-10); NRBC Flagged by Analyzer 0 % (0-5); Neutrophil # 17.05 X10^3/uL (2.7-7.7); Neutrophil % 95.3 % (47-70); POSITIVE DIFFERENTIAL YES; Platelet Count 255 K/mm3 (150-450); RBC Distribution Width CV 12.8 % (11.6-14.6); RBC Distribution Width SD 39.9 fl (35.1-43.9); Red Blood Count 4.22 M/mm3 (4.2-5.4); White Blood Count 17.9 K/mm3 (4.4-11.0)
[2021-06-02 10:21] LABS: Differential Indicated SCAN CRITERIA MET
[2021-06-02 10:31] LABS: Anion Gap 10 (5-15); BUN 11 mg/dL (7-18); BUN/Creat Ratio 12.2 RATIO (10-20); Calcium,Total 8.2 mg/dL (8.5-10.1); Chloride 103 mmol/L (98-107); EST Glomerular Filtration Rate 78 mL/min (>60); Est Glom Filt Rate - Afr Amer 94 mL/min (>60); Glucose 102 mg/dL (74-106); Potassium 3.2 mmol/L (3.5-5.1); Sodium Level 136 mmol/L (136-145)
[2021-06-02] MEDS: 0.9% Normal Saline 1,000 ML 1000 ML IV ×2 (12:45→14:33)
[2021-06-02 12:53] LABS: Lactic Acid 3.3 mmol/L (0.4-1.9)
[2021-06-02 13:06] LABS: Mucous, Urine 0 SEEN /hpf (<or=2+)
[2021-06-02 13:32] LABS: Color, Urine Yellow (Yellow); Glucose, Dipstick Normal (Normal); Ketone-Dipstick Negative (Negative); Leukocyte Esterase-Dipstick Negative /ul (Negative); Nitrite-Dipstick Negative (Negative); Occult Blood-Urine 250 /ul (Negative); Protein-Dipstick Negative (Negative); Urine Bilirubin Dipstick Negative (Negative); Urine Clarity Clear (Clear); Urine Urobilinogen Normal (Normal)
[2021-06-02 13:34] LABS: Red Blood Cells-Urine 0-5 SEEN /hpf (0-5); Squamous Epithelial Cells - UA 0-5 SEEN /hpf (5-10); White Blood Cells 0-5 SEEN /hpf (0-5)
[2021-06-02 13:35] LABS: Bacteria RARE /hpf (None Seen)
[2021-06-02] MEDS: Ibuprofen 200 MG Tablet 400 MG PO (14:57)
[2021-06-02 15:48] LABS: Lactic Acid 1.6 mmol/L (0.4-1.9)
[2021-06-02 16:28] LABS: Reflex Lactate? Y
--- NOTE | 2021-06-02 17:09 | ED.RN ---
dr. mccabe aware of 3rd lactic. he does not want reflex order since two have been drawn
--- NOTE | 2021-06-02 17:15 | PCM.HP.STD ---
Documented by User: ARMANDO Ch 06/02/21 17:51 HPI - General General Date of Service: 06/02/21 Chief Complaint: Fatigue, fever HPI Narrative DIEGO GIL, is a 30 F who presents with complaints of fever following chemotherapy on 06/01/2021. Patient reports that she received her first chemotherapy treatment yesterday for breast cancer and last night began to have a fever with a T-max of 102. Patient states that her fever continued today and was nonresponsive to Tylenol at home. In ER patient was noted to be tachycardic and hypotensive and a lactic acid was obtained, 3.3. Patient received 2 L normal saline bolus and repeat lactic 1.6 however patient continues to be hypotensive with systolic BPs in the 90s. Patient has no other medical history. Patient will be admitted overnight for observation and IV fluid administration. [facility] Medical History Alcohol use Breast cancer of upper-outer quadrant of right female breast Cancer Chronic headaches COVID-19 Depression Encounter for education Fibromyalgia Injury of head and neck Kidney stones Non-smoker Wears contact lenses Home Medications lidocaine-prilocaine 2.5 %-2.5 % topical cream 1 applic TOPICAL ONCE PRN 30 Days #30 g 05/13/21 [Rx Last Taken 06/01/21] ondansetron 8 mg disintegrating tablet 8 mg PO Q8H PRN #30 tab 05/13/21 [Rx Last Taken Unknown] prochlorperazine maleate 10 mg tablet 10 mg PO Q6H PRN #30 tab 05/13/21 [Rx Last Taken Unknown] Allergy/AdvReac Type Severity Reaction Status Date / Time FLU VACCINE Allergy Hives Uncoded 06/02/21 09:30 Family History Father Alcoholism Mother Hypertension Hyperlipidemia Aunt Breast cancer 2 great aunts - both maternal 1 aunt - paternal Surgical History S/P medial meniscus repair of right knee S/P tonsillectomy Social History household members: other details: fiancee current occupational status: employed current occupation: Only [employer] work Smoking Status: Never smoker Electronic Cigarette Use: not used second hand exposure: Yes alcohol intake: current alcohol intake frequency: holidays/special occasions only details: occasionally/socially substance use type: does not use caffeine: No seatbelt use: always do you feel safe at home: Yes ROS Constitutional Constitutional: Reports fatigue and fever(s); Denies anorexia, chills, malaise or weakness Cardiovascular Cardiovascular: Denies chest pain, edema, palpitations or syncope Respiratory/Chest Respiratory/Chest: Denies cough, shortness of breath at rest, shortness of breath with exertion or wheezing Gastrointestinal Gastrointestinal: Denies abdominal pain, constipation, diarrhea, nausea or vomiting Genitourinary Genitourinary: Denies dysuria Musculoskeletal Musculoskeletal: Denies back pain, extremity pain, joint pain or joint stiffness Integumentary Integumentary: Denies dry skin Neurologic Neurologic: Denies abnormal gait, abnormal speech, confusion or dizziness Psychiatric Psychiatric: Denies anxiety or depression Endocrine Endocrinology: Denies change in body appearance Hematologic/Lymphatic Hematologic/Lymphatic: Denies anemia Vital Signs Vital Signs Vital Signs: 06/02/21 09:28 06/02/21 09:31 06/02/21 10:18 Temperature 100.5 F H 100.5 F H 100.5 F H Temperature Source Oral Oral Oral Pulse Rate 112 H 112 H 112 H Respiratory Rate 18 18 18 Respiratory Effort Respiratory Pattern Blood Pressure 123/70 H 123/70 H 123/70 H Blood Pressure Mean 87 87 87 Pulse Ox 99 99 99 Oxygen Delivery Method Room Air Room Air Room Air 06/02/21 10:19 06/02/21 11:39 06/02/21 12:20 Temperature 99.3 F H 99.1 F Temperature Source Temporal Oral Pulse Rate 89 99 Respiratory Rate 16 18 Respiratory Effort Normal Non-Labored Respiratory Pattern Normal Blood Pressure 90/45 L 95/53 L Blood Pressure Mean 60 67 Pulse Ox 99 Oxygen Delivery Method Room Air Room Air 06/02/21 14:33 06/02/21 16:31 06/02/21 17:01 Temperature 102.1 F H 101.7 F H Temperature Source Oral Oral Pulse Rate 103 H 107 H Respiratory Rate 26 H 18 Respiratory Effort Respiratory Pattern Blood Pressure 110/74 89/47 L 91/47 L Blood Pressure Mean 86 61 61 Pulse Ox 99 Oxygen Delivery Method Room Air Weight Weight: 190 lb Body Mass Index (BMI) 33.6 Physical Exam Const alert, oriented x3 and no apparent distress General Appearance: cooperative HEENT normocephalic and head/scalp atraumatic Eyes conjunctivae normal and no scleral icterus Neck supple General: trachea midline Resp normal respiratory effort, normal air movement and clear to auscultation bilaterally Cardio regular rate, regular rhythm, S1 normal heart sound, S2 normal heart sound and peripheral pulses 2+ throughout GI normal to inspection, nondistended, normoactive bowel sounds, soft to palpation and non-tender Extremity normal capillary refill General Extremity: no tenderness to palpation of joints or extremities Skin Skin Narrative: Port to Left upper chest accessed General Skin Exam: turgor normal Neuro no focal motor deficits and no sensory deficits noted Speech: speech normal Motor Exam: Negative for general weakness Psych thought process normal, cooperative and affect normal Appearance: appropriate Results Lab / Micro Data Result Diagrams: 06/02/21 09:55 06/02/21 09:55 Labs: Laboratory Results - last 24 hr 06/02/21 09:55: WBC 17.9 H, RBC 4.22, Hgb 13.2, Hct 36.7 L, MCV 87.0, MCH 31.3, MCHC 36.0, RDW Std Deviation 39.9, RDW Coeff of Jonnie 12.8, Plt Count 255, MPV 9.9, Immature Gran % (Auto) 0.600, Neut % (Auto) 95.3 H, Lymph % (Auto) 2.4 L, [place] % (Auto) 1.6, Eos % (Auto) 0.0, Baso % (Auto) 0.1, Absolute Neuts (auto) 17.1 H, Absolute Lymphs (auto) 0.43 L, Nucleated RBC % 0 06/02/21 09:55: Sodium 136, Potassium 3.2 L, Chloride 103, Carbon Dioxide 23.0, Anion Gap 10, BUN 11, Creatinine 0.90, Estim Creat Clear Calc 76.30, Est GFR (MDRD) Af Amer 94, Est GFR (MDRD) Non-Af 78, BUN/Creatinine Ratio 12.2, Glucose 102, Calcium 8.2 L 06/02/21 09:55: Lactic Acid 3.3 H* 06/02/21 12:55: Urine Color Yellow, Urine Clarity Clear, Urine pH 6.0, Ur Specific [place] 1.010, Urine Protein Negative, Urine Glucose (UA) Normal, Urine Ketones Negative, Urine Occult Blood 250 H, Urine Nitrite Negative, Urine Bilirubin Negative, Urine Urobilinogen Normal, Ur Leukocyte Esterase Negative, Urine RBC 0-5 SEEN, Urine WBC 0-5 SEEN, Ur Squamous Epith Cells 0-5 SEEN, Urine Bacteria RARE, Urine Mucus 0 SEEN 06/02/21 15:10: Lactic Acid 1.6 Micro: Microbiology 06/02/21 11:00 Nasal Secretion SARS-CoV-2 Antigen (Rapid) - Final Radiology Impression Chest X-Ray 06/02/21 09:42 IMPRESSION: Normal x-ray examination of the chest. Electronically Signed: August Beach MD at 10:51 EST , Assessment & Plan Assessment/Plan (1) Acidosis, lactic: (2) Breast cancer of upper-outer quadrant of right female breast: QUALIFIERS: Estrogen receptor status: positive Qualified Code(s): C50.411 - Malignant neoplasm of upper-outer quadrant of right female breast; Z17.0 - Estrogen receptor positive status [ER+] (3) Cellulitis: QUALIFIERS: Site of cellulitis: trunk Site of cellulitis of trunk: chest wall Qualified Code(s): L03.313 - Cellulitis of chest wall (4) Hypokalemia: PLAN: 1. Cellulitis of the left chest -Admit to [facility] -Consult Dr. Acosta, discussed case with Dr. Acosta will see patient in a.m. -Patient initiated on Zosyn in ER, will continue in addition to vancomycin -Lactic acid 3.3, repeat 1.6 following 2 L normal saline bolus administration in ER -Normal saline 125 mL/h -Magnesium, phosphorus, procalcitonin, wound culture and MRSA PCR ordered stat -CBC and BMP ordered for a.m. -Blood cultures pending -White blood cell count 17.9 although this may be a combination of infection and steroid administration from yesterday at chemo 2. Hypokalemia -Potassium chloride 40 mEq p.o. x1 ordered -Repeat BMP in a.m. 3. Breast cancer of upper-outer quadrant of right female breast -Patient was diagnosed recently and got port placement [address] Acosta -Patient received first dose of chemotherapy 06/01/2021 -Chemo precautions in place -Continue as needed Zofran and prochlorperazine DVT prophylaxis-subcu Lovenox This patient was seen by ARMANDO Ch under the supervision of Dr. Rodriguez. 30 minutes spent in clinical coordination of patient's plan of care. Documented by User: Dr. Ella Rodriguez MD 06/02/21 18:24 HPI - General General Date of Admission: 06/02/21 [facility] Medical History Alcohol use Breast cancer of upper-outer quadrant of right female breast Cancer Chronic headaches COVID-19 Depression Encounter for education Fibromyalgia Injury of head and neck Kidney stones Non-smoker Wears contact lenses Home Medications lidocaine-prilocaine 2.5 %-2.5 % topical cream 1 applic TOPICAL ONCE PRN 30 Days #30 g 05/13/21 [Rx Last Taken 06/01/21] ondansetron 8 mg disintegrating tablet 8 mg PO Q8H PRN #30 tab 05/13/21 [Rx Last Taken Unknown] prochlorperazine maleate 10 mg tablet 10 mg PO Q6H PRN #30 tab 05/13/21 [Rx Last Taken Unknown] Allergy/AdvReac Type Severity Reaction Status Date / Time FLU VACCINE Allergy Hives Uncoded 06/02/21 09:30 Family History Father Alcoholism Mother Hypertension Hyperlipidemia Aunt Breast cancer 2 great aunts - both maternal 1 aunt - paternal Surgical History S/P medial meniscus repair of right knee S/P tonsillectomy Social History household members: other details: fiancee current occupational status: employed 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
--- NOTE | 2021-06-02 17:30 | NURSING ---
MED SURG WHITE FEVER, WOUND CELLULITIS
--- NOTE | 2021-06-02 17:40 | CASEMGMT ---
LAMONT MARTINEZ Assessment: RN CM to room to meet with patient for initial transition planning/care coordination assessment. RN JUAN introduced self and role at [facility]. Patient voices understanding and consents to assessment at this time. Patient's significant other Montrell Caban present at bedside. Patient is alert and oriented and answers all questions appropriately. Care providers, pharmacy, and demographics verified/updated at this time. Admitting Dx: cellulitis PCP: Chas Bazzi Specialists: [facility]- oncology Preferred Pharmacy: [facility] Insurance: [employer] Prescription Benefit: yes Living Will/HPOA: Patient reports she has a living will and HPOA is father Jj Lemos. Patient made aware these forms are not on file at [facility] and may be brought in to be scanned into record. LNOK: Father Jj Lemos and significant other Montrell Caban Living Arrangements: Patient lives with significant other in single story house with no steps to enter the home. Patient states independent with ADLs prior to hospitalization. Patient is currently unemployed. Smoking/ETOH: Never smoker, admits to occasional ETOH use (couple times a month) Transportation: Patient drives self and denies transportation concerns. DME/HHC/SNF: Patient denies having any DME in the home and denies need for any DME at this time. Denies previous HHC or SNF stays. Patient currently undergoing chemotherapy for recently diagnosed breast cancer and received first treatment on 06/01/2021. Per patient, chemotherapy planned for every 3 weeks. Patient has no concerns with going home at time of discharge. CM to follow for any discharge planning/needs. Patient voices no concerns/needs at this time. Advised patient to ask for CM if any questions/concerns/needs arise. Voices understanding. Plan: home
[2021-06-02 17:46] LABS: Magnesium 1.6 mg/dL (1.6-2.6); Phosphorus 2.8 mg/dL (2.5-4.9)
[2021-06-02 17:57] LABS: Procalcitonin 0.07 ng/mL (0.00-0.09)
[2021-06-02] MEDS: 0.9% Normal Saline 1,000 ML 125 ML IV (18:56)
[2021-06-02] MEDS: Ondansetron 4 MG/2 ML Vial IV (20:36)
--- NOTE | 2021-06-02 20:37 | PCM.RX.CS ---
Consult Pharmacy has been consulted to manage selected antiobiotic: Vancomycin Type of Consult: New start Prior Doses of Antibiotics Received/Current Regimen: Medications Vancomycin HCl 2,000 mg/ (Sodium Chloride) 540 mls @ 250 mls/hr IV X1 ONE Stop: 06/02/21 22:09 Last Admin: 06/02/21 20:19 Dose: 250 mls/hr Documented by: Labs: Sodium 136 mmol/L (136-145) 06/02/21 09:55 Potassium 3.2 mmol/L (3.5-5.1) L 06/02/21 09:55 Chloride 103 mmol/L (98-107) 06/02/21 09:55 Carbon Dioxide 23.0 mmol/L (21.0-32.0) 06/02/21 09:55 Anion Gap 10 (5-15) 06/02/21 09:55 BUN 11 mg/dL (7-18) 06/02/21 09:55 Creatinine 0.90 mg/dL (0.55-1.02) 06/02/21 09:55 Est GFR (MDRD) Af Amer 94 mL/min (>60) 06/02/21 09:55 Est GFR (MDRD) Non-Af 78 mL/min (>60) 06/02/21 09:55 BUN/Creatinine Ratio 12.2 RATIO (10-20) 06/02/21 09:55 Glucose 102 mg/dL (74-106) 06/02/21 09:55 Microbiology: Microbiology 06/02/21 11:00 Nasal Secretion SARS-CoV-2 Antigen (Rapid) - Final Estimated Creatinine Clearance: 76 Goal Trough: 15-20 mcg/mL Pharmacy Plan for Drug Dosinmg IV given, 1250mg IV q12 with trough prior to 4th dose. Pharmacy Service will continue to monitor and adjust dosing as required. Follow-Up Labs: Trough Vancomycin - 06/04 @ 0730
[2021-06-02] MEDS: Acetaminophen 325 MG Tablet 650 MG PO (20:45)
[2021-06-02] MEDS: Potassium Chloride Oral Tablet 20 MEQ 40 MEQ PO (20:46)
[2021-06-02 21:10] LABS: M R Staph aureus DNA By PCR Negative (Negative); Staph aureus DNA By PCR NEGATIVE (Negative)
[2021-06-02 21:11] LABS: Probe Check PASS; Specimen Processing Control PASS
[2021-06-02] MEDS: Ibuprofen 400 MG Tablet PO (22:13)
[2021-06-03] VITALS (14 sets, daily range): BP systolic 88–113; BP diastolic 41–57; PULSE 84–98; RESP 16–20; TEMP 36.9–37.4; O2SAT 94–100
--- NOTE | 2021-06-03 00:46 | NURSING ---
PT HAD A NEULASTA ON BODY MED INJECTOR TO THE LEFT BACK OF THE UPPER ARM, THE FIANCE SAID THE MED WAS GOING TO BE INJECTED AT 2044 THEN THE MED INJECTOR NEEDED TO BE REMOVED AT [address] OFFICE AND THE INSTRUCTION NOTE THAT THE OFFICE SENT HOME W THE PT AFTER HER CHEMO. THE NEULASTA MED INJECTOR WAS REMOVED AT 2144.
[2021-06-03] MEDS: Ibuprofen 400 MG Tablet PO ×6 (02:06→22:20)
[2021-06-03 04:47] LABS: Absolute Neutrophil Count 13.1 X10^3/uL (2.0-7.7); Basophil# 0.03 X10^3/uL; Basophil% 0.2 % (0-1); Eosinophil# 0.15 X10^3/uL; Eosinophils% 1.1 % (0-5); Hematocrit 31.8 % (37-47); Hemoglobin 11.2 g/dL (12.0-15.0); Lymphocyte % 2.1 % (19-41); Mean Corp Hgb Conc 35.2 g/dL (32-36); Mean Corpuscular Volume 88.1 fL (81-99); Mean Platelet Vol. 9.3 fl (6.2-12.0); Monocyte# 0.06 X10^3/uL; Monocyte% 0.4 % (0-10); NRBC Flagged by Analyzer 0 % (0-5); Neutrophil # 13.09 X10^3/uL (2.7-7.7); Neutrophil % 93.6 % (47-70); POSITIVE DIFFERENTIAL YES; Platelet Count 182 K/mm3 (150-450); RBC Distribution Width SD 42.1 fl (35.1-43.9); Red Blood Count 3.61 M/mm3 (4.2-5.4)
[2021-06-03] MEDS: 0.9% Normal Saline 1,000 ML 125 ML IV ×3 (04:48→22:20)
[2021-06-03] MEDS: Acetaminophen 325 MG Tablet 650 MG PO (04:48)
[2021-06-03 04:50] LABS: Differential Indicated SCAN CRITERIA MET
[2021-06-03 05:07] LABS: Anion Gap 5 (5-15); BUN 11 mg/dL (7-18); BUN/Creat Ratio 15.7 RATIO (10-20); Calcium,Total 7.2 mg/dL (8.5-10.1); Chloride 110 mmol/L (98-107); EST Glomerular Filtration Rate 104 mL/min (>60); Est Glom Filt Rate - Afr Amer 126 mL/min (>60); Estimated Creatinine Clearance 98.09 ml/min; Glucose 98 mg/dL (74-106); Potassium 3.5 mmol/L (3.5-5.1); Sodium Level 138 mmol/L (136-145)
[2021-06-03] MEDS: Ondansetron 4 MG/2 ML Vial IV ×3 (05:29→18:31)
[2021-06-03 06:26] LABS: D-Dimer Quantitative (DVT/PE) 0.92 FEU/ug/m (0.27-0.49)
--- NOTE | 2021-06-03 06:30 | CT_ITS ---
STUDY: CTA CHEST REASON FOR EXAM: Female, 30 years old. elevated d.dimer RADIATION DOSAGE (If Supplied By Facility): CTDIvol = ( 12.07 ) mGy, DLP = ( 420.10 ) mGycm TECHNIQUE: The examination was performed with the intravenous administration of IV 100mL Isovue-300. Post-processing of the angiographic images was performed, with multiplanar reformation and 3D reconstruction. Individualized dose optimization techniques were used for this CT. COMPARISON: None. FINDINGS: There is a Port-A-Cath with tip in the right atrium. Normal enhancement of the main pulmonary artery and right and left pulmonary arteries. No segmental pulmonary embolus. Limited evaluation of the subsegmental branches due to bolus timing. Normal thoracic aorta and visualized great vessels. There is no demonstrated aortic dissection. Normal heart and pericardium. Normal mediastinum. Normal hilar regions. Normal visualized trachea and bronchi. The lungs demonstrate patchy bilateral lower lobe airspace opacities. Normal pleura. Normal chest wall structures. Normal osseous structures. Normal visualized upper abdomen. Tiny nonobstructive left renal calculus. Biopsy marker visualized within the right breast laterally. CT/CTA Chest W/WO Contrast IMPRESSION: No evidence for pulmonary embolus within the main or segmental branches of the pulmonary arteries. Limited evaluation of the subsegmental branches due to bolus timing. Scattered bilateral lower lobe airspace opacities, likely due to underlying atelectasis. There is scattered areas of smooth intralobular septal thickening suggesting component of mild pulmonary edema. Electronically Signed: Valdo Rojas MD at 7:27 EST ,
--- NOTE | 2021-06-03 07:17 | NURSING ---
DR BAEZ NOTIFIED OF THE PT CHEST PAIN W A DEEP INSPIRATION, DDIMER ORDERED, ELEVATED- THEN A CT CHEST WAS ORDERED
--- NOTE | 2021-06-03 07:26 | PN.HOSP_ITS ---
Subjective Subjective Patient is a 30-year-old lady with history of breast cancer in the right breast who had a port placed 2 weeks prior to her admission presented to the emergency department with erythema across the chest and fever of 102 following her chemo. An assessment of cellulitis involving the left upper chest made admitted to regular nursing floor for further management Objective Data Objective Data Vital Signs: Vital Signs Temp Pulse Resp BP Pulse Ox 99.0 F 98 20 H 104/48 L 95 06/03/21 06:00 06/03/21 06:00 06/03/21 06:00 06/03/21 06:00 06/03/21 06:00 Oxygen Delivery Method Room Air Weight: 89.04 kg Body Mass Index (BMI) 34.7 Intake & Output: Intake and Output for Last 24 Hours 06/01/21 06/02/21 06/03/21 23:59 23:59 23:59 Intake Total 2099 1540 / 1540 Balance 2099 1540 / 1540 Lab / Micro Data Result Diagrams: 06/03/21 04:32 06/03/21 04:32 Labs: Laboratory Results - last 24 hr 06/02/21 09:55: WBC 17.9 H, RBC 4.22, Hgb 13.2, Hct 36.7 L, MCV 87.0, MCH 31.3, MCHC 36.0, RDW Std Deviation 39.9, RDW Coeff of Jonnie 12.8, Plt Count 255, MPV 9.9, Immature Gran % (Auto) 0.600, Neut % (Auto) 95.3 H, Lymph % (Auto) 2.4 L, Frontier % (Auto) 1.6, Eos % (Auto) 0.0, Baso % (Auto) 0.1, Absolute Neuts (auto) 17.1 H, Absolute Lymphs (auto) 0.43 L, Nucleated RBC % 0 06/02/21 09:55: Sodium 136, Potassium 3.2 L, Chloride 103, Carbon Dioxide 23.0, Anion Gap 10, BUN 11, Creatinine 0.90, Estim Creat Clear Calc 76.30, Est GFR (MDRD) Af Amer 94, Est GFR (MDRD) Non-Af 78, BUN/Creatinine Ratio 12.2, Glucose 102, Calcium 8.2 L 06/02/21 09:55: Lactic Acid 3.3 H* 06/02/21 09:55: Phosphorus 2.8, Magnesium 1.6 06/02/21 09:55: Procalcitonin 0.07 06/02/21 12:55: Urine Color Yellow, Urine Clarity Clear, Urine pH 6.0, Ur Specific [place] 1.010, Urine Protein Negative, Urine Glucose (UA) Normal, Urine Ketones Negative, Urine Occult Blood 250 H, Urine Nitrite Negative, Urine Bilirubin Negative, Urine Urobilinogen Normal, Ur Leukocyte Esterase Negative, Urine RBC 0-5 SEEN, Urine WBC 0-5 SEEN, Ur Squamous Epith Cells 0-5 SEEN, Urine Bacteria RARE, Urine Mucus 0 SEEN 06/02/21 15:10: Lactic Acid 1.6 06/02/21 17:18: S.aureus Protein A PCR NEGATIVE, MRSA (PCR) Negative 06/03/21 04:32: WBC 14.0 H, RBC 3.61 L, Hgb 11.2 L, Hct 31.8 L, MCV 88.1, MCH 31.0, MCHC 35.2, RDW Std Deviation 42.1, RDW Coeff of Jonnie 13.0, Plt Count 182, MPV 9.3, Immature Gran % (Auto) 2.600 H, Neut % (Auto) 93.6 H, Lymph % (Auto) 2.1 L, Frontier % (Auto) 0.4, Eos % (Auto) 1.1, Baso % (Auto) 0.2, Absolute Neuts (auto) 13.1 H, Absolute Lymphs (auto) 0.30 L, Nucleated RBC % 0 06/03/21 04:32: Sodium 138, Potassium 3.5, Chloride 110 H, Carbon Dioxide 23.0, Anion Gap 5, BUN 11, Creatinine 0.70, Estim Creat Clear Calc 98.09, Est GFR (MDRD) Af Amer 126, Est GFR (MDRD) Non-Af 104, BUN/Creatinine Ratio 15.7, Glucose 98, Calcium 7.2 L 06/03/21 05:40: D-Dimer Quant (PE/DVT) 0.92 H* Micro: Microbiology 06/02/21 11:00 Nasal Secretion SARS-CoV-2 Antigen (Rapid) - Final Radiography Diagnostic Testing: Radiology Impression Chest X-Ray 06/02/21 09:42 IMPRESSION: Normal x-ray examination of the chest. Electronically Signed: August Beach MD at 10:51 EST , Physical Exam Narrative GENERAL: cooperative HEENT: Atraumatic; EYES; Anicteric, Normal Conjunctiva NECK; supple, normal thyroid, RESPIRATORY: Diminished to auscultation CARDIOVASCULAR: Regular S1 S2, GI: soft, normoactive bowel sounds, : No Renal angle tenderness; EXTREMITIES: No edema, no clubbing, MUSCULOSKELETAL: no muscle wasting NEURO: Awake; no lateralizing signs. SKIN: Some erythema left upper chest PSYCH; Flat affect Assessment & Plan Assessment/Plan (1) Acidosis, lactic: (2) Breast cancer of upper-outer quadrant of right female breast: QUALIFIERS: Estrogen receptor status: positive Qualified Code(s): C50.411 - Malignant neoplasm of upper-outer quadrant of right female breast; Z17.0 - Estrogen receptor positive status [ER+] (3) Cellulitis: QUALIFIERS: Site of cellulitis: trunk Site of cellulitis of trunk: chest wall Qualified Code(s): L03.313 - Cellulitis of chest wall (4) Hypokalemia: PLAN: Patient is a 30-year-old lady with history of breast cancer in the right breast who had a port placed 2 weeks prior to her admission presented to the emergency department with erythema across the chest and fever of 102 following her chemo. An assessment of cellulitis involving the left upper chest made admitted to regular nursing floor for further management 1. Cellulitis involving the left upper chest ?Patient was started on broad-spectrum antibiotic therapy with Zosyn and vancomycin cultures sent we will follow up on the result. 2. Sepsis ?Present on admission patient had fever, elevated white cell count, presence of an infection, as well as elevated lactic acid level. This is secondary to patient cellulitis patient was managed appropriately 3. Hypokalemia ?Corrected per protocol subsequent evaluation with repeat labs ordered 4. Breast CA involving the right breast ?Patient did receive first dose of chemo on 06/01/2021 5. DVT prophylaxis ?Lovenox 6. Anemia - Secondary to chronic disorder monitoring H&H and transfuse if patient becomes symptomatic or hemoglobin falls below 7 Charges/Coding Visit Charges Inpatient E&M: 34870 Subs Hosp L3
--- NOTE | 2021-06-03 08:07 | CON.PCM.SX_ITS ---
Assessment & Plan Assessment/Plan (1) Fever: QUALIFIERS: Fever type: unspecified Qualified Code(s): R50.9 - Fever, unspecified PLAN: Patient reports that she had redness across her chest yesterday when she was febrile. Currently there is no erythema or blanching around the port. The port is completely covered by tissue and it appears that the dermal layer has healed but the epidermis is still healing in the medial aspect. There is no sign of infection or the incision opening. Des Acosta MD Pager: [facility] [address] [place] [address], [address] [place] [address] Office: HPI Consult Data Date of Consult: 06/03/21 HPI Narrative HPI Narrative: DIEGO GIL, is a 30 F who presents for fever after chemotherapy. I was consulted for redness around the port. The patient is not experiencing any pain around the port site. [facility] Medical History Alcohol use Breast cancer of upper-outer quadrant of right female breast Cancer Chronic headaches COVID-19 Depression Encounter for education Fibromyalgia Injury of head and neck Kidney stones Non-smoker Wears contact lenses Home Medications lidocaine-prilocaine 2.5 %-2.5 % topical cream 1 applic TOPICAL ONCE PRN 30 Days #30 g 05/13/21 [Rx Last Taken 06/01/21] ondansetron 8 mg disintegrating tablet 8 mg PO Q8H PRN #30 tab 05/13/21 [Rx Last Taken Unknown] prochlorperazine maleate 10 mg tablet 10 mg PO Q6H PRN #30 tab 05/13/21 [Rx Last Taken Unknown] pegfilgrastim [Neulasta Onpro] mg SUBCUT 06/03/21 [History Last Taken Unknown] Allergy/AdvReac Type Severity Reaction Status Date / Time FLU VACCINE Allergy Hives Uncoded 06/02/21 09:30 Family History Father Alcoholism Mother Hypertension Hyperlipidemia Aunt Breast cancer 2 great aunts - both maternal 1 aunt - paternal Surgical History S/P medial meniscus repair of right knee S/P tonsillectomy Social History household members: other details: serena current occupational status: employed 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 Smoking Status: Never smoker Electronic Cigarette Use: not used second hand exposure: Yes alcohol intake: current alcohol intake frequency: holidays/special occasions only details: occasionally/socially substance use type: does not use caffeine: No seatbelt use: always do you feel safe at home: Yes ROS ENT HEENT: Denies headache(s) Cardiovascular Cardiovascular: Denies chest pain Respiratory/Chest Respiratory/Chest: Denies cough Gastrointestinal Gastrointestinal: Denies abdominal pain Musculoskeletal Musculoskeletal: Reports none Neurologic Neurologic: Reports none Psychiatric Psychiatric: Reports none Physical Exam Const alert and oriented x3 Chest Chest Narrative: The port has no erythema around it or discharge. The epithelial layer in the medial aspect of the incision has not fully healed yet but there is no sign of opening of the incision. Resp normal respiratory effort and normal air movement Cardio regular rate and regular rhythm GI soft to palpation, non-tender and non-distended Lab / Micro Data Result Diagrams: 06/03/21 04:32 06/03/21 04:32 Labs: Laboratory Results - last 24 hr 06/02/21 09:55: WBC 17.9 H, RBC 4.22, Hgb 13.2, Hct 36.7 L, MCV 87.0, MCH 31.3, MCHC 36.0, RDW Std Deviation 39.9, RDW Coeff of Jonnie 12.8, Plt Count 255, MPV 9.9, Immature Gran % (Auto) 0.600, Neut % (Auto) 95.3 H, Lymph % (Auto) 2.4 L, Boyle % (Auto) 1.6, Eos % (Auto) 0.0, Baso % (Auto) 0.1, Absolute Neuts (auto) 17.1 H, Absolute Lymphs (auto) 0.43 L, Nucleated RBC % 0 06/02/21 09:55: Sodium 136, Potassium 3.2 L, Chloride 103, Carbon Dioxide 23.0, Anion Gap 10, BUN 11, Creatinine 0.90, Estim Creat Clear Calc 76.30, Est GFR (MDRD) Af Amer 94, Est GFR (MDRD) Non-Af 78, BUN/Creatinine Ratio 12.2, Glucose 102, Calcium 8.2 L 06/02/21 09:55: Lactic Acid 3.3 H* 06/02/21 09:55: Phosphorus 2.8, Magnesium 1.6 06/02/21 09:55: Procalcitonin 0.07 06/02/21 12:55: Urine Color Yellow, Urine Clarity Clear, Urine pH 6.0, Ur Specific [place] 1.010, Urine Protein Negative, Urine Glucose (UA) Normal, Urine Ketones Negative, Urine Occult Blood 250 H, Urine Nitrite Negative, Urine Bilirubin Negative, Urine Urobilinogen Normal, Ur Leukocyte Esterase Negative, Urine RBC 0-5 SEEN, Urine WBC 0-5 SEEN, Ur Squamous Epith Cells 0-5 SEEN, Urine Bacteria RARE, Urine Mucus 0 SEEN 06/02/21 15:10: Lactic Acid 1.6 06/02/21 17:18: S.aureus Protein A PCR NEGATIVE, MRSA (PCR) Negative 06/03/21 04:32: WBC 14.0 H, RBC 3.61 L, Hgb 11.2 L, Hct 31.8 L, MCV 88.1, MCH 31.0, MCHC 35.2, RDW Std Deviation 42.1, RDW Coeff of Jonnie 13.0, Plt Count 182, MPV 9.3, Immature Gran % (Auto) 2.600 H, Neut % (Auto) 93.6 H, Lymph % (Auto) 2.1 L, Boyle % (Auto) 0.4, Eos % (Auto) 1.1, Baso % (Auto) 0.2, Absolute Neuts (auto) 13.1 H, Absolute Lymphs (auto) 0.30 L, Nucleated RBC % 0 06/03/21 04:32: Sodium 138, Potassium 3.5, Chloride 110 H, Carbon Dioxide 23.0, Anion Gap 5, BUN 11, Creatinine 0.70, Estim Creat Clear Calc 98.09, Est GFR (MDRD) Af Amer 126, Est GFR (MDRD) Non-Af 104, BUN/Creatinine Ratio 15.7, Glucose 98, Calcium 7.2 L 06/03/21 05:40: D-Dimer Quant (PE/DVT) 0.92 H* Micro: Microbiology 06/02/21 11:00 Nasal Secretion SARS-CoV-2 Antigen (Rapid) - Final Radiology Impression Chest X-Ray 06/02/21 09:42 IMPRESSION: Normal x-ray examination of the chest. Electronically Signed: August Beach MD at 10:51 EST , Chest CTA 06/03/21 06:30 IMPRESSION: No evidence for pulmonary embolus within the main or segmental branches of the pulmonary arteries. Limited evaluation of the subsegmental branches due to bolus timing. Scattered bilateral lower lobe airspace opacities, likely due to underlying atelectasis. There is scattered areas of smooth intralobular septal thickening suggesting component of mild pulmonary edema. Electronically Signed: Valdo Rojas MD at 7:27 EST ,
--- NOTE | 2021-06-03 10:10 | CASEMGMT ---
Social Work Pt admitted with a new diagnosis of breast cancer. SW met with the pt and introduced self and role of SW. Pt is alert and oriented x3 and open to speaking with SW. Pt with new breast cancer diagnosis on 05/11/21. Since then port has been placed and first chemo treatment on 06/01/21. SW and pt reviewed support system and coping strategies. Pt admits to history of depression and anxiety, has not used medication in the past but has seen a counselor. Emotional support provided and list of mental health counselors provided should pt feel this is needed. Pt aware SW will remain available if continued needs arise. FATEMEH Hunt
[2021-06-03] MEDS: Enoxaparin 30 MG/0.3 ML Syringe SC (10:15)
[2021-06-03] MEDS: 0.9% Saline Lock 10 ML Syringe IV ×2 (12:31→18:30)
[2021-06-04] VITALS (7 sets, daily range): BP systolic 101–103; BP diastolic 57; PULSE 95–105; RESP 16–18; TEMP 37–37.7; O2SAT 93–95
[2021-06-04] MEDS: Ibuprofen 400 MG Tablet PO ×3 (02:31→10:04)
[2021-06-04] MEDS: 0.9% Saline Lock 10 ML Syringe IV ×3 (03:34→13:02)
[2021-06-04] MEDS: Ondansetron 4 MG/2 ML Vial IV ×2 (03:34→10:04)
[2021-06-04] MEDS: 0.9% Normal Saline 1,000 ML 125 ML IV (06:19)
--- NOTE | 2021-06-04 07:32 | PCM.PN.HOSP ---
Subjective Subjective She has seen symptoms significantly improved. Patient did request for discharge. She will be assessed for discharge Objective Data Objective Data Vital Signs: Vital Signs Temp Pulse Resp BP Pulse Ox 99.8 F H 98 16 101/57 L 94 06/04/21 02:46 06/04/21 07:00 06/04/21 02:46 06/04/21 02:46 06/04/21 02:46 Oxygen Delivery Method Room Air Weight: 89 kg Body Mass Index (BMI) 34.7 Intake & Output: Intake and Output for Last 24 Hours 06/02/21 06/03/21 06/04/21 23:59 23:59 23:59 Intake Total 2099 4190.00 / 4190.00 1047.92 / 1047.92 Balance 2099 4190.00 / 4190.00 1047.92 / 1047.92 Lab / Micro Data Result Diagrams: 06/04/21 07:54 06/04/21 07:54 Micro: Microbiology 06/02/21 11:20 Blood Culture (Wb) - Port Blood Culture - Preliminary No growth in 48 hours. 06/02/21 09:55 Blood Culture (Wb) - Chest Blood Culture - Preliminary No growth in 48 hours. 06/02/21 17:18 Wound - Chest Gram Stain - Final 06/02/21 17:18 Wound - Chest Wound Culture - Preliminary No growth-Final to follow 06/02/21 11:00 Nasal Secretion SARS-CoV-2 Antigen (Rapid) - Final 06/02/21 12:55 Urine, Clean Catch Urine Culture - Final Mixed Gram Positive Organisms Physical Exam Narrative GENERAL: cooperative HEENT: Atraumatic; EYES; Anicteric, Normal Conjunctiva NECK; supple, normal thyroid, RESPIRATORY: Diminished to auscultation CARDIOVASCULAR: Regular S1 S2, GI: soft, normoactive bowel sounds, : No Renal angle tenderness; EXTREMITIES: No edema, no clubbing, MUSCULOSKELETAL: no muscle wasting NEURO: Awake; no lateralizing signs. SKIN: Some erythema left upper chest PSYCH; Flat affect Assessment & Plan Assessment/Plan (1) Acidosis, lactic: (2) Breast cancer of upper-outer quadrant of right female breast: QUALIFIERS: Estrogen receptor status: positive Qualified Code(s): C50.411 - Malignant neoplasm of upper-outer quadrant of right female breast; Z17.0 - Estrogen receptor positive status [ER+] (3) Cellulitis: QUALIFIERS: Site of cellulitis: trunk Site of cellulitis of trunk: chest wall Qualified Code(s): L03.313 - Cellulitis of chest wall (4) Hypokalemia: PLAN: Patient is a 30-year-old lady with history of breast cancer in the right breast who had a port placed 2 weeks prior to her admission presented to the emergency department with erythema across the chest and fever of 102 following her chemo. An assessment of cellulitis involving the left upper chest made admitted to regular nursing floor for further management 1. Cellulitis involving the left upper chest ?Patient was started on broad-spectrum antibiotic therapy with Zosyn and vancomycin cultures sent we will follow up on the result. 2. Sirs ?Present on admission patient had fever, elevated white cell count, presence of an infection, as well as elevated lactic acid level. This is secondary to patient cellulitis patient was managed appropriately 3. Hypokalemia ?Corrected per protocol subsequent evaluation with repeat labs ordered ?06/04/2021; potassium still low at 3.2 additional potassium given 4. Breast CA involving the right breast ?Patient did receive first dose of chemo on 06/01/2021 5. DVT prophylaxis ?Lovenox 6. Anemia - Secondary to chronic disorder monitoring H&H and transfuse if patient becomes symptomatic or hemoglobin falls below 7 Charges/Coding Visit Charges Inpatient E&M: 39431 Subs Hosp L2
[2021-06-04 08:11] LABS: Hematocrit 29.7 % (37-47); Hemoglobin 10.6 g/dL (12.0-15.0); Mean Corp Hgb Conc 35.7 g/dL (32-36); Mean Corpuscular Hgb 31.5 pg (27.0-32.0); Mean Corpuscular Volume 88.4 fL (81-99); Mean Platelet Vol. 9.9 fl (6.2-12.0); POSITIVE COUNT YES; POSITIVE DIFFERENTIAL YES; POSITIVE MORPHOLOGY YES; Platelet Count 150 K/mm3 (150-450); RBC Distribution Width CV 13.2 % (11.6-14.6); Red Blood Count 3.36 M/mm3 (4.2-5.4); White Blood Count 7.9 K/mm3 (4.4-11.0)
[2021-06-04 08:16] LABS: Differential Indicated MANUAL DIFF
[2021-06-04 08:51] LABS: Anion Gap 5 (5-15); BUN 6 mg/dL (7-18); BUN/Creat Ratio 8.4 RATIO (10-20); Calcium,Total 7.5 mg/dL (8.5-10.1); Chloride 108 mmol/L (98-107); Creatinine, Serum 0.71 mg/dL (0.55-1.02); EST Glomerular Filtration Rate 103 mL/min (>60); Est Glom Filt Rate - Afr Amer 124 mL/min (>60); Estimated Creatinine Clearance 96.71 ml/min; Glucose 84 mg/dL (74-106); Potassium 3.2 mmol/L (3.5-5.1); Sodium Level 136 mmol/L (136-145)
[2021-06-04 09:12] LABS: Eosinophil 2 % (0-5); Lymphocyte 3 % (19-41); Metamyelocyte 14 % (0-1); Monocyte 1 % (0-10); Myelocyte 4 % (0-0); Neutrophil-Band 1 % (0-5); Neutrophil-Segmented 75 % (47-70); Platelet Estimate ADEQUATE (ADEQ); Red Cell Morphology NORM C+C NORMAL (NORM C&C); Total Cells Counted 100 (MANUAL DIFF)
[2021-06-04 09:14] LABS: Absolute Lymphocyte Count 0.24 X10^3/uL (0.83-4.51); Lymphocyte # 0.24 X10^3/ul (0.83-4.51)
--- NOTE | 2021-06-04 09:18 | PHA.PHARE_ITS ---
Consult Type of Consult: Follow-up Suspected Infection: Skin/Soft tissue - Cellulitis of chest wall Labs: Sodium 136 mmol/L (136-145) 06/04/21 07:54 Potassium 3.2 mmol/L (3.5-5.1) L 06/04/21 07:54 Chloride 108 mmol/L (98-107) H 06/04/21 07:54 Carbon Dioxide 23.0 mmol/L (21.0-32.0) 06/04/21 07:54 Anion Gap 5 (5-15) 06/04/21 07:54 BUN 6 mg/dL (7-18) L 06/04/21 07:54 Creatinine 0.71 mg/dL (0.55-1.02) 06/04/21 07:54 Est GFR (MDRD) Af Amer 124 mL/min (>60) 06/04/21 07:54 Est GFR (MDRD) Non-Af 103 mL/min (>60) 06/04/21 07:54 BUN/Creatinine Ratio 8.4 RATIO (10-20) L 06/04/21 07:54 Glucose 84 mg/dL (74-106) 06/04/21 07:54 Vancomycin Trough 6.0 ug/mL (5.0-15.0) 06/04/21 07:54 Microbiology: Microbiology 06/02/21 11:20 Blood Culture (Wb) - Port Blood Culture - Preliminary No growth in 48 hours. 06/02/21 09:55 Blood Culture (Wb) - Chest Blood Culture - Preliminary No growth in 48 hours. 06/02/21 17:18 Wound - Chest Gram Stain - Final 06/02/21 17:18 Wound - Chest Wound Culture - Preliminary No growth-Final to follow 06/02/21 11:00 Nasal Secretion SARS-CoV-2 Antigen (Rapid) - Final 06/02/21 12:55 Urine, Clean Catch Urine Culture - Final Mixed Gram Positive Organisms Goal Trough: 15-20 mcg/mL Pharmacy Plan for Drug Dosing: VANCOMYCIN LEVEL RECEIVED Current Vancomycin Dose: 1250mg Q12H Number of Doses Received: 3 Vancomycin Level: 6.0 Hours Since Last Dose: ~ 12 hours Renal Function: sCr 0.71, CrCl 96.71 ml/min Renal Function Trend: stable Lab/Micro: MRSA PCR negative Vancomycin Plan/Comments: Increase Vancomycin dosing to 1750mg Q12H. Pt cu rrently receiving previously scheduled 1250mg dose, will order additional 500mg dose for this morning for total 1750mg. Pending Level: Vancomycin trough @ 192906/04/21 Pharmacy Service will continue to monitor and adjust dosing as required. Labs to be done on [date and time ordered]: Vancomycin trough @ 192906/04/21
--- NOTE | 2021-06-04 10:03 | DS.PCM_ITS ---
Providers Date of Admission: 06/02/21 Primary Care Physician: Dr. Chas Bazzi, Consultations 06/02/21 18:31 Consult: General Surgery Routine Consulting Provider: Des Acosta Reason for Consult: cellulitis of port EMERGENT Consult: No MD Notified: Yes Date Notified: 06/02/21 Time Notified: 17:26 Method of Notification: Provider Initiated Reason For Visit: LACTIC ACIDOSIS Diagnosis Discharge Diagnosis (1) Acidosis, lactic: Status: Acute Code(s): E87.2 - Acidosis (2) Breast cancer of upper-outer quadrant of right female breast: Status: Acute Code(s): C50.411 - Malignant neoplasm of upper-outer quadrant of right female breast Qualifiers: Estrogen receptor status: positive Qualified Code(s): C50.411 - M alignant neoplasm of upper-outer quadrant of right female breast; Z17.0 - Estrogen receptor positive status [ER+] (3) Cellulitis: Status: Acute Code(s): L03.90 - Cellulitis, unspecified Qualifiers: Site of cellulitis: trunk Site of cellulitis of trunk: chest wall Qualified Code(s): L03.313 - Cellulitis of chest wall (4) Hypokalemia: Status: Acute Code(s): E87.6 - Hypokalemia Medications at Discharge Home Medications lidocaine-prilocaine 2.5 %-2.5 % topical cream 1 applic TOPICAL ONCE PRN 30 Days #30 g 05/13/21 ondansetron 8 mg disintegrating tablet 8 mg PO Q8H PRN #30 tab 05/13/21 prochlorperazine maleate 10 mg tablet 10 mg PO Q6H PRN #30 tab 05/13/21 Neulasta Onpro mg SUBCUT 06/03/21 cefdinir 300 mg PO BID #10 cap 06/04/21 potassium chloride [Klor-Con M20] 20 meq PO BIDCM #20 tab 06/04/21 Hospital Course Operations None Summary of Care Provided Minutes Spent on Discharge: 35 Hospital Course: Patient is a 30-year-old lady with history of breast cancer in the right breast who had a port placed 2 weeks prior to her admission presented to the emergency department with erythema across the chest and fever of 102 following her chemo. An assessment of cellulitis involving the left upper chest made admitted to regular nursing floor for further management 1. Cellulitis involving the left upper chest ?Patient was started on broad-spectrum antibiotic therapy with Zosyn and vancomy ursula cultures sent we will follow up on the result. -Patient cultures have remained negative to date at the time of discharge 2. Sirs ?Present on admission patient had fever, elevated white cell count, presence of an infection, as well as elevated lactic acid level. This is secondary to patient cellulitis patient was managed appropriately 3. Hypokalemia ?Corrected per protocol subsequent evaluation with repeat labs ordered ?06/04/2021; potassium still low at 3.2 additional potassium given 4. Breast CA involving the right breast ?Patient did receive first dose of chemo on 06/01/2021 5. DVT prophylaxis ?Lovenox 6. Anemia - Secondary to chronic disorder monitoring H&H and transfuse if patient becomes symptomatic or hemoglobin falls below 7 Physical Exam Narrative GENERAL: cooperative HEENT: Atraumatic; EYES; Anicteric, Normal Conjunctiva NECK; supple, normal thyroid, RESPIRATORY: Diminished to auscultation CARDIOVASCULAR: Regular S1 S2, GI: soft, normoactive bowel sounds, : No Renal angle tenderness; EXTREMITIES: No edema, no clubbing, MUSCULOSKELETAL: no muscle wasting NEURO: Awake; no lateralizing signs. SKIN: Some erythema left upper chest PSYCH; Flat affect Weight / BMI Weight Weight: 89 kg Body Mass Index (BMI) 34.7 ABG / Lab / Microbiology Data Result Diagrams: 06/04/21 07:54 06/04/21 07:54 Laboratory: Laboratory Results - last 24 hr 06/04/21 07:54: Vancomycin Trough 6.0 06/04/21 07:54: WBC 7.9, RBC 3.36 L, Hgb 10.6 L, Hct 29.7 L, MCV 88.4, MCH 31.5, MCHC 35.7, RDW Std Deviation 43.0, RDW Coeff of Jonnie 13.2, Plt Count 150, MPV 9.9, Neut % (Auto) Not Reportable, Absolute Neuts (auto) 6.0, Absolute Lymphs (auto) 0.24 L, Total Counted 100, Neutrophils % (Manual) 75 H, Band Neutrophils % 1, Lymphocytes % (Manual) 3 L, Monocytes % (Manual) 1, Eosinophils % (Manual) 2, Metamyelocytes % 14 H, Myelocytes % 4 H, Diff Path Review May foll, Platelet Estimate ADEQUATE, RBC Morphology NORM C+C 06/04/21 07:54: Sodium 136, Potassium 3.2 L, Chloride 108 H, Carbon Dioxide 23.0, Anion Gap 5, BUN 6 L, Creatinine 0.71, Estim Creat Clear Calc 96.71, Est GFR (MDRD) Af Amer 124, Est GFR (MDRD) Non-Af 103, BUN/Creatinine Ratio 8.4 L, Glucose 84, Calcium 7.5 L Microbiology: Microbiology 06/02/21 11:20 Blood Culture (Wb) - Port Blood Culture - Preliminary No growth in 48 hours. 06/02/21 09:55 Blood Culture (Wb) - Chest Blood Culture - Preliminary No growth in 48 hours. 06/02/21 17:18 Wound - Chest Gram Stain - Final 06/02/21 17:18 Wound - Chest Wound Culture - Preliminary No growth-Final to follow 06/02/21 11:00 Nasal Secretion SARS-CoV-2 Antigen (Rapid) - Final 06/02/21 12:55 Urine, Clean Catch Urine Culture - Final Mixed Gram Positive Organisms D/C Instructions Discharge Diet: No restrictions Discharge Activity: Return to Normal Activity Call your doctor if you observe: Fever of 101 or Higher, Shortness of breath, Fainting spells and Chest pain Meaningful Use Info Meaningful Use Diagnoses (Choose all that apply): None applicable Discharge Plan Admission Admit Date/Time: 06/02/21 17:10 Attending Provider: Bartolome Diallo Primary Care Provider: Chas Bazzi Consulting Providers: Des Acosta Discharge Orders/Prescriptions Prescriptions: New potassium chloride [Klor-Con M20] 20 mEq Tablet,Er Particles/Crystals 20 meq PO BIDCM Qty: 20 RF: 0 cefdinir 300 mg capsule 300 mg PO BID Qty: 10 RF: 0 Continued prochlorperazine maleate 10 mg tablet 10 mg PO Q6H PRN (Reason: nausea and vomiting) Qty: 30 RF: 2 ondansetron 8 mg tablet,disintegrating 8 mg PO Q8H PRN (Reason: nausea and vomiting) Qty: 30 RF: 2 lidocaine-prilocaine 2.5-2.5 % cream 1 applic topical ONCE PRN (Reason: port access) 30 Days Qty: 30 RF: 2 Neulasta Onpro 6 mg/0.6 mL Syringe, W/ Wearable Injector SUBCUT RF: 0 Referrals / Follow Up: Chas Bazzi DO [Primary Care Provider] - In 1 Week (For repeat CBC and BMP) Disposition Disposition (needs filled in before D/C Order can be placed): Home, Self Care Charges/Coding Visit Charges Inpatient E&M: 65305 Disch Hosp
[2021-06-04] MEDS: Enoxaparin 30 MG/0.3 ML Syringe SC (10:05)
[2021-06-04] MEDS: Potassium Chloride Oral Tablet 20 MEQ 40 MEQ PO (10:37)
[2021-06-04] MEDS: Potassium Chloride Oral Tablet 20 MEQ PO (10:37)
[2021-06-04] MEDS: Vancomycin IV 500 MG/100 ML BAG 100 MG IV (11:33)
[2021-06-05 12:39] LABS: Pathologist Review Reviewed
== END 2021-06-04 13:15 | disposition home or self-care (01) | DRG 315 ==
LOC: ED 17:22 → MS3 06-03 07:05
PROVIDERS: Hospitalist; Nurse Practitioner Family; Admitting Provider Family Medicine; Emergency Provider Emergency Medicine; PCP Family Medicine; Visit Provider Internal Medicine
DX: T80.212A Local infection due to central venous catheter, initial encounter (principal); L03.313 Cellulitis of chest wall; E87.2 Acidosis; C50.411 Malignant neoplasm of upper-outer quadrant of right female breast; B96.89 Other specified bacterial agents as the cause of diseases classified elsewhere; E66.9 Obesity, unspecified; I95.9 Hypotension, unspecified; E87.6 Hypokalemia; M79.7 Fibromyalgia; F41.9 Anxiety disorder, unspecified; Z86.16 Personal history of COVID-19; Z87.442 Personal history of urinary calculi; Z17.0 Estrogen receptor positive status [ER+]; F32.A Depression, unspecified; Z68.34 Body mass index [BMI] 34.0-34.9, adult
CPT/HCPCS: 36415; 36591; 71046; 71275; 80048; 80202; 81001; 83605; 83735; 84100; 84145; 85025; 85379; 87040; 87070; 87086; 87088; 87205; 87426; 87640; 97802; 99285; J7030; J7040; J7050; Q9967; A4216; J2405

== ENCOUNTER 2021-06-08 14:25 | Outpatient (CLI) | payer OTHER, SELFPAY ==
--- NOTE | 2021-06-08 14:35 | RAD_ITS ---
History: COUGH, FEVER EXAMINATION/TECHNIQUE: XR Chest 2 Views: COMPARISON: June 02, 2021 FINDINGS: LINES/DEVICES: Left-sided infusion catheter remains in place. LUNGS: Mild patchy airspace opacification noted throughout both lungs consistent with pneumonia. No pneumothorax. MEDIASTINUM AND CARDIOVASCULAR STRUCTURES: Cardiac silhouette not enlarged. Central airways and mediastinal contour are unremarkable. BONES AND SOFT TISSUES: Unremarkable. RAD/Chest PA and Lateral IMPRESSION: Bilateral pneumonia. at 1448 Reported and signed by: Brant Flowers MD Electronically Signed: Brant Flowers MD at 14:47 EST ,
== END 2021-06-08 23:59 | disposition home or self-care (01) ==
PROVIDERS: PCP Family Medicine; Referring Provider Nurse Practitioner Family; Visit Provider Nurse Practitioner Family
DX: R05.9 Cough, unspecified (principal); R50.9 Fever, unspecified
CPT/HCPCS: 71046

== ENCOUNTER 2021-06-11 11:22 | Emergency (ER) | payer OTHER, SELFPAY ==
--- NOTE | 2021-06-11 11:47 | EDS_ITS ---
HPI History of Present Illness Chief Complaint: Shortness of Breath Narrative Narrative: 30-year-old female with past medical history of breast cancer presents with persistent fevers. She is a patient of Dr. Sukhi iLm got her first chemotherapy treatment on 06/01. She developed a fever after this that has been persistent anywhere from -04 12. She was admitted on 06/02 for this and had a full work-up with chest x-ray, blood cultures, and assessment of her port and there was no infectious process found. She followed up with oncology a few days later and chest x-ray showed bilateral pneumonia. She was started on Augmentin and a Z-Cl but is only been taking these for 2 days. She has a persistent dry cough and feels mildly short of breath with exertion. No chest pain. Yesterday she developed diarrhea and had a few episodes of nonbloody watery stool this morning. After speaking with her oncology office they recommended she come to the ED. She is febrile here at 100.5 and states her last dose of Tylenol was 10:30 PM last night. [facility] Medical History (Updated 06/11/21 @ 15:18 by AYAZ Cisse) Alcohol use Breast cancer of upper-outer quadrant of right female breast Cancer Chronic headaches Cough COVID-19 Depression Diarrhea Drug rash Encounter for education Encounter for screening for COVID-19 Fever Fibromyalgia Injury of head and neck Kidney stones Non-smoker Pneumonia Wears contact lenses Home Medications lidocaine-prilocaine 2.5 %-2.5 % topical cream 1 applic TOPICAL ONCE PRN 30 Days #30 g 05/13/21 [Rx Last Taken 06/01/21] ondansetron 8 mg disintegrating tablet 8 mg PO Q8H PRN #30 tab 05/13/21 [Rx Last Taken Unknown] prochlorperazine maleate 10 mg tablet 10 mg PO Q6H PRN #30 tab 05/13/21 [Rx Last Taken Unknown] Neulasta Onpro mg SUBCUT 06/03/21 [History Last Taken Unknown] potassium chloride [Klor-Con M20] 20 meq PO BIDCM #20 tab 06/04/21 [Rx Last Taken Unknown] amoxicillin-potassium clavulanate 1,000 mg-62.5 mg tablet,ext.rel 12hr 2 tab PO Q12H #28 tab 06/08/21 [Rx Last Taken Unknown] azithromycin 250 mg tablet See Rx Instructions PO .COMPLEX #6 tab 06/08/21 [Rx Last Taken Unknown] Allergy/AdvReac Type Severity Reaction Status Date / Time cefdinir Allergy Mild rash Verified 06/11/21 13:38 FLU VACCINE Allergy Hives Uncoded 06/11/21 13:38 Family History Father Alcoholism Mother Hypertension Hyperlipidemia Aunt Breast cancer 2 great aunts - both maternal 1 aunt - paternal Surgical History S/P medial meniscus repair of right knee S/P tonsillectomy Social History household members: other details: serena current occupational status: employed 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 Negative for chills, malaise. Eyes: Negative for visual change. ENT: Negative for sore throat, ear pain, rhinorrhea. CVS: Negative for palpitations, chest pain, syncope. Respiratory: Positive for cough, shortness of breath. Negative for orthopnea. GI: Positive for diarrhea. Negative for abdominal pain, nausea, vomiting, constipation, melena, hematochezia. : Negative for dysuria, hematuria or frequency. Neuro: Negative for headache, motor/sensory dysfunction. Skin: Negative for rash, abscess, or wound. Musc: Negative for joint pain, swelling, trauma. Heme: Negative for easy bruising, bleeding, lymphadenopathy. EXAM Physical Exam Narrative Exam Narrative: CONST: Patient sitting in no acute distress. EYES: Normal inspection. ENT: Normal inspection, moist mucous membranes. NECK: Normal inspection. RESP: No respiratory distress, CTAB. CVS: Regular rate and rhythm, no murmur, no gallop. ABD: Soft and nontender, no guarding or rebound, nondistended. SKIN: Color normal, no rash, warm, dry, intact. EXTREMITIES: Normal appearance, no pedal edema. NEURO: Oriented x4. PSYCH: Normal affect. Const Vital Signs: 06/11/21 13:00 06/11/21 13:40 06/11/21 14:21 Temperature 99.0 F 0 F L 98.6 F Temperature Source Oral Temporal Temporal Pulse Rate 71 Respiratory Rate 14 Respiratory Effort Normal Respiratory Pattern Normal Blood Pressure 115/62 Blood Pressure Mean 79 Pulse Ox 97 Oxygen Delivery Method Room Air 06/11/21 14:25 06/11/21 15:18 Temperature 98.6 F 98.4 F Temperature Source Temporal Oral Pulse Rate 75 74 Respiratory Rate 15 16 Respiratory Effort Respiratory Pattern Blood Pressure 116/70 114/87 H Blood Pressure Mean 85 96 Pulse Ox 97 98 Oxygen Delivery Method Room Air MDM MDM MDM Narrative Medical decision making narrative: Patient was sent in for persistent fevers. She has breast cancer and started chemotherapy recently and has had persistent fevers over the last 2 weeks. She is being treated for pneumonia and recently developed diarrhea. Today she appears well and nontoxic. She has a fever of 100.5 F with otherwise normal vital signs. 97% on room air. Clinically her exam is benign. Labs show slight leukocytosis at 13.5 and anemia, otherwise unremarkable. Chest x-ray showed persistent bilateral infiltrates. With her ongoing symptoms I elected to get a CTA. It is negative for PE but does show bilateral pneumonia. COVID-19 test is pending. I spoke with the nurse practitioner Sierra at the oncology office who sent her in who advised also doing a stool study due to diarrhea. This is pending and she will follow up on results. She otherwise has had recent extensive work-up with negative blood cultures and with otherwise normal vital signs here and improving fever after Tylenol she is stable to go home. Patient was counseled to continue her Augmentin and Z-Cl from oncology and is following up with oncology on Tuesday. She was discharged in stable condition. 1. History of breast cancer on chemotherapy 2. Recurrent fevers 3. Bilateral pneumonia Lab Data Labs: Laboratory Results - last 24 hr 06/11/21 06/11/21 06/11/21 13:00 13:00 13:15 WBC 13.5 H RBC 3.10 L Hgb 9.7 L Hct 28.8 L MCV 92.9 MCH 31.3 MCHC 33.7 RDW Std Deviation 48.7 H RDW Coeff of Jonnie 14.3 Plt Count 159 MPV 10.5 Neut % (Auto) Not Reportable Absolute Neuts (auto) 11.4 H Absolute Lymphs (auto) 0.95 Total Counted 100 Neutrophils % (Manual) 72 H Band Neutrophils % 12 H Lymphocytes % (Manual) 7 L Monocytes % (Manual) 1 Metamyelocytes % 3 H Myelocytes % 4 H Promyelocytes % 1 H Diff Path Review May foll Toxic Granulation 2+ Platelet Estimate ADEQUATE RBC Morphology NORM C+C Polychromasia RARE Sodium 135 L Potassium 3.4 L Chloride 107 Carbon Dioxide 22.0 Anion Gap 6 BUN 10 Creatinine 0.67 Estim Creat Clear Calc 0.00 Est GFR (MDRD) Af Amer 133 Est GFR (MDRD) Non-Af 110 BUN/Creatinine Ratio 14.9 Glucose 88 Calcium 6.9 L COVID-19 ([place]) Not Detected Radiography Chest X-Ray - ED: 1 View, Read by ED Physician, Normal, Heart and Bony Structures Diagnostic Testing: Clinical Impression(s) from Imaging Studies Chest X-Ray 06/11/21 12:29 IMPRESSION: Findings in keeping with patchy bibasilar pulmonary infiltrates slightly more prominent as compared to prior examination. Electronically Signed: August Beach MD at 12:50 EST , Chest CTA 06/11/21 14:21 IMPRESSION: No evidence of pulmonary embolism. Multiple bilateral nodular alveolar infiltrates more prominent in the right lung. Enlargement of both hilar lymph nodes more prominent on the right side. Electronically Signed: August Beach MD at 14:58 EST , ED attending interpretation shows normal heart size, bilateral patchy infiltrates in the lung bases. Discharge Plan Triage Chief Complaint: Shortness of Breath ED Provider: Kayli Early Dx/Rx/DC Orders Clinical Impression: Pneumonia, Fever Instructions: ED Pneumonia (Adult) Prescriptions: No Action prochlorperazine maleate 10 mg tablet 10 mg PO Q6H PRN (Reason: nausea and vomiting) Qty: 30 RF: 2 ondansetron 8 mg tablet,disintegrating 8 mg PO Q8H PRN (Reason: nausea and vomiting) Qty: 30 RF: 2 lidocaine-prilocaine 2.5-2.5 % cream 1 applic topical ONCE PRN (Reason: port access) 30 Days Qty: 30 RF: 2 amoxicillin-pot clavulanate [Augmentin XR] 1,000-62.5 mg tablet extended release 12 hr 2 tab PO Q12H Qty: 28 RF: 0 azithromycin [Zithromax Z-Cl] 250 mg tablet See Rx Instructions PO .COMPLEX Qty: 6 RF: 0 Neulasta Onpro 6 mg/0.6 mL Syringe, W/ Wearable Injector SUBCUT RF: 0 potassium chloride [Klor-Con M20] 20 mEq Tablet,Er Particles/Crystals 20 meq PO BIDCM Qty: 20 RF: 0 Primary Care Provider: Chas Bazzi Referrals: Chas Bazzi DO [Primary Care Provider] - Activity Restrictions/Additional Instructions: Your CT scan showed continued pneumonia in both lungs. There are no blood clots. You had a fever but your other vital signs like her oxygen level are normal. I spoke with Sierra from the oncology office who feels you are okay to go home. She recommended doing a stool study since she had diarrhea. Please see her on Tuesday. Return for new or worsening symptoms degenerative changes with multilevel chronic compression deformities Disposition Disposition: Home, Self Care Discharge Date/Time: 06/11/21 15:48
--- NOTE | 2021-06-11 12:29 | RAD_ITS ---
STUDY: X-RAY CHEST REASON FOR EXAM: Female, 30 years old. Cough TECHNIQUE: Single AP portable view of the chest. COMPARISON: Comparison is made with prior study dated 05/31/2021. FINDINGS: A left-sided moon catheter seen with the tip at the junction of the superior vena cava and right atrium. There now is evidence of patchy bibasilar infiltrates slightly more prominent in the right hemithorax. This has progressed as compared to prior study. There is no demonstrated pleural abnormality. Normal size heart. Normal mediastinum and megan. Normal visualized pulmonary arteries. Normal visualized aortic arch and descending thoracic aorta. Normal visualized thoracic spine. Normal visualized ribs, clavicles, and shoulders. There is no demonstrated abnormality of the visualized soft tissue structures of the upper abdomen. RAD/Chest 1 View (Portable) IMPRESSION: Findings in keeping with patchy bibasilar pulmonary infiltrates slightly more prominent as compared to prior examination. Electronically Signed: August Beach MD at 12:50 EST ,
[2021-06-11 13:00] VITALS: BP 115/62; PULSE 71; RESP 14; TEMP 37.2; O2SAT 97
[2021-06-11] MEDS: Ondansetron 4 MG/2 ML Vial IV (13:25)
[2021-06-11] MEDS: Acetaminophen 500 MG Tablet 1000 MG PO (13:25)
[2021-06-11] MEDS: 0.9% Normal Saline 1,000 ML 999 ML IV (13:25)
[2021-06-11 13:33] LABS: Hematocrit 28.8 % (37-47); Hemoglobin 9.7 g/dL (12.0-15.0); Mean Corp Hgb Conc 33.7 g/dL (32-36); Mean Corpuscular Hgb 31.3 pg (27.0-32.0); Mean Corpuscular Volume 92.9 fL (81-99); Mean Platelet Vol. 10.5 fl (6.2-12.0); POSITIVE COUNT YES; POSITIVE MORPHOLOGY YES; Platelet Count 159 K/mm3 (150-450); RBC Distribution Width CV 14.3 % (11.6-14.6); RBC Distribution Width SD 48.7 fl (35.1-43.9); White Blood Count 13.5 K/mm3 (4.4-11.0)
[2021-06-11 13:40] VITALS: TEMP -17.7; TEMP 0
[2021-06-11 13:41] LABS: Differential Indicated MANUAL DIFF
[2021-06-11 13:47] LABS: Anion Gap 6 (5-15); BUN 10 mg/dL (7-18); BUN/Creat Ratio 14.9 RATIO (10-20); Calcium,Total 6.9 mg/dL (8.5-10.1); Chloride 107 mmol/L (98-107); Creatinine, Serum 0.67 mg/dL (0.55-1.02); EST Glomerular Filtration Rate 110 mL/min (>60); Est Glom Filt Rate - Afr Amer 133 mL/min (>60); Glucose 88 mg/dL (74-106); Potassium 3.4 mmol/L (3.5-5.1); Sodium Level 135 mmol/L (136-145)
[2021-06-11 14:06] LABS: Lymphocyte 7 % (19-41); Metamyelocyte 3 % (0-1); Monocyte 1 % (0-10); Myelocyte 4 % (0-0); Neutrophil-Band 12 % (0-5); Neutrophil-Segmented 72 % (47-70); Promyelocyte 1 % (0-0); Total Cells Counted 100 (MANUAL DIFF)
[2021-06-11 14:07] LABS: Toxic Granulation 2+
[2021-06-11 14:08] LABS: Platelet Estimate ADEQUATE (ADEQ); Polychromasia RARE; Red Cell Morphology NORM C+C NORMAL (NORM C&C)
[2021-06-11 14:10] LABS: Absolute Neutrophil Count 11.4 X10^3/uL (2.0-7.7)
[2021-06-11 14:11] LABS: Absolute Lymphocyte Count 0.95 X10^3/uL (0.83-4.51); Lymphocyte # 0.95 X10^3/ul (0.83-4.51)
[2021-06-11 14:21] VITALS: TEMP 37
--- NOTE | 2021-06-11 14:21 | CT_ITS ---
STUDY: CTA CHEST REASON FOR EXAM: Female, 30 years old. Dyspnea. History of breast cancer and chemotherapy. Fever. RADIATION DOSAGE (If Supplied By Facility): CTDIvol = ( 14.58 ) mGy, DLP = ( 450.61 ) mGycm TECHNIQUE: The examination was performed with the intravenous administration of IV 100mL Isovue-370. Post-processing of the angiographic images was performed, with multiplanar reformation and 3D reconstruction. Individualized dose optimization techniques were used for this CT. COMPARISON: Comparison is made with prior study dated 06/03/2021. FINDINGS: A left-sided Port-A-Cath is seen with the tip in the superior vena cava. Small bilateral axillary lymph nodes. Known right breast mass. Normal enhancement of the main pulmonary artery and right and left pulmonary arteries. Normal enhancement of the bilateral peripheral pulmonary arteries. There is no demonstrated pulmonary embolism. Normal thoracic aorta and visualized great vessels. There is no demonstrated aortic dissection. Normal heart and pericardium. Normal mediastinum. Mildly enlarged bilateral hilar lymph nodes more prominent in the right hilum. Normal visualized trachea and bronchi. The lungs are well expanded. There is evidence of multiple nodular alveolar infiltrates in both lungs more prominent in the right lung. Follow-up is recommended. Normal pleura. Normal chest wall structures. Normal osseous structures. Normal visualized upper abdomen. CT/CTA Chest W/WO Contrast IMPRESSION: No evidence of pulmonary embolism. Multiple bilateral nodular alveolar infiltrates more prominent in the right lung. Enlargement of both hilar lymph nodes more prominent on the right side. Electronically Signed: August Beach MD at 14:58 EST ,
[2021-06-11 14:25] VITALS: BP 116/70; PULSE 75; RESP 15; TEMP 37; O2SAT 97
[2021-06-11 15:18] VITALS: BP 114/87; PULSE 74; RESP 16; TEMP 36.9; O2SAT 98
[2021-06-12 12:23] LABS: Pathologist Review Reviewed
== END 2021-06-11 15:48 | disposition home or self-care (01) ==
PROVIDERS: Emergency Provider Physician Assistant; PCP Family Medicine; Visit Provider Physician Assistant
DX: J18.9 Pneumonia, unspecified organism (principal); C50.411 Malignant neoplasm of upper-outer quadrant of right female breast; Z20.822 Contact with and (suspected) exposure to COVID-19; D64.9 Anemia, unspecified; Z86.16 Personal history of COVID-19; M79.7 Fibromyalgia; Z87.442 Personal history of urinary calculi; Z79.899 Other long term (current) drug therapy; R19.7 Diarrhea, unspecified
CPT/HCPCS: 71045; 71275; 80048; 85025; 87426; 87493; 87506; 87635; 96361; 96374; 99282; J7030; Q9967; A4216; J2405; U0003; U0005

== ENCOUNTER 2021-07-30 11:04 | Outpatient (CLI) | payer OTHER, SELFPAY ==
--- NOTE | 2021-07-30 11:09 | RAD_ITS ---
INDICATION: F/U PNEUMONIA 05/2021 -- RIGHT EXAMINATION/TECHNIQUE: X-RAY - XR Chest 2 Views COMPARISON: 06/11/2021. FINDINGS: LINES/DEVICES: Left chest port visualizes catheter tip in the SVC. LUNGS: No consolidation, edema or effusion. No pneumothorax. The bronchovascular and interstitial lung markings unremarkable. Improved aeration is seen in comparison to the prior study. MEDIASTINUM AND CARDIOVASCULAR STRUCTURES: Cardiac silhouette not enlarged. Central airways and mediastinal contour are unremarkable. BONES AND SOFT TISSUES: Unremarkable. RAD/Chest PA and Lateral IMPRESSION: Improved aeration seen in comparison to the prior study no evidence of airspace opacification or bronchovascular prominence is seen. Electronically Signed: Sumanth Nolasco MD at 11:46 EDT ,
== END 2021-07-30 23:59 | disposition home or self-care (01) ==
LOC: RAD 11:07
PROVIDERS: PCP Family Medicine; Referring Provider Internal Medicine Hematology & Oncology; Visit Provider Internal Medicine Hematology & Oncology
DX: J18.9 Pneumonia, unspecified organism (principal)
CPT/HCPCS: 71046

== ENCOUNTER 2021-08-05 12:06 | Emergency (ER) | payer OTHER, SELFPAY ==
[2021-08-05 12:07] VITALS: BP 100/62; PULSE 71; RESP 13; TEMP 36.4; O2SAT 100; BMI 35.1
--- NOTE | 2021-08-05 12:47 | EKG12_ITS ---
Test Reason : Blood Pressure : / mmHG Vent. Rate : 076 BPM Atrial Rate : 076 BPM P-R Int : 154 ms QRS Dur : 080 ms QT Int : 404 ms P-R-T Axes : 014 056 051 degrees QTc Int : 454 ms Normal sinus rhythm Normal ECG Confirmed by MARTA SANZ, YANNA ([id number]), senior editor EMILIANA CLEMENTS ([id number]) on 08/07/2021 10:21:31 AM Referred By: PL Confirmed By:YANNA LOZANO MD
--- NOTE | 2021-08-05 12:48 | EX.ED.DYSGE1 ---
HPI History of Present Illness Chief Complaint: Syncope Informant: patient Narrative Narrative: Patient had a syncopal episode today in heme-onc office. This patient was diagnosed with breast cancer back in April. She has had for fourth round of chemotherapy on Tuesday. Her Neulasta released on Tuesday. She has actually been eating and drinking well until today. She did not drink because she went in for an appointment. Yesterday she had blood in the toilet bowl with bowel movements twice. But blood did not appear to be mixed in with the stool. It was red. She had a bowel movement in the office today that had a little bit of blood mixed in with the stool. She then got a hot flash while she was waiting and then she had a syncopal episode. Hot flashes are common after chemotherapy because of the HER2 therapy. She never had chest pain palpitations or dyspnea. She does not have that now. She is not anticoagulated. No history of DVT or PE. She actually feels back to normal. Blood work was done and sent off in the lab I have looked at that. She is not in significantly anemic. Potassium is a little bit low and will be replaced. I am adding EKG and magnesium. [facility] Medical History Alcohol use Ankle edema, bilateral Bone pain due to G-CSF Breast cancer of upper-outer quadrant of right female breast Cancer Chronic headaches CINV (chemotherapy-induced nausea and vomiting) Cough COVID-19 Depression Diarrhea Diarrhea due to drug Drug rash Encounter for education Encounter for screening for COVID-19 Fever Fibromyalgia Injury of head and neck Kidney stones Non-smoker Pneumonia Tremor UTI (urinary tract infection) Wears contact lenses Home Medications lidocaine-prilocaine 2.5 %-2.5 % topical cream 1 applic TOPICAL ONCE PRN 30 Days #30 g 05/13/21 [Rx Last Taken 06/01/21] ondansetron 8 mg disintegrating tablet 8 mg PO Q8H PRN #30 tab 05/13/21 [Rx Last Taken Unknown] prochlorperazine maleate 10 mg tablet 10 mg PO Q6H PRN #30 tab 05/13/21 [Rx Last Taken Unknown] Neulasta Onpro mg SUBCUT 06/03/21 [History Last Taken Unknown] acetaminophen 500 mg tablet 1,000 mg PO Q6H PRN tab 06/15/21 [History Last Taken Unknown] Allergy/AdvReac Type Severity Reaction Status Date / Time cefdinir Allergy Mild rash Verified 08/05/21 11:36 Influenza Virus Vaccines Allergy Hives Verified 08/05/21 11:36 Family History Father Alcoholism Mother Hypertension Hyperlipidemia Aunt Breast cancer 2 great aunts - both maternal 1 aunt - paternal Surgical History S/P medial meniscus repair of right knee S/P tonsillectomy Social History household members: other details: fiancee current occupational status: employed 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 Smoking Status: Never smoker Electronic Cigarette Use: not used second hand exposure: Yes alcohol intake: current alcohol intake frequency: holidays/special occasions only details: occasionally/socially substance use type: does not use caffeine: No seatbelt use: always do you feel safe at home: Yes ROS ROS ED Constitutional Constitutional ED: Denies chills, fever(s) or subjective Eyes Eyes: Denies blurry vision ENT ENT ED: Denies rhinorrhea or sore throat Cardiovascular Cardiovascular: Denies chest pain Respiratory/Chest Respiratory/Chest: Denies cough or dyspnea Gastrointestinal Gastrointestinal: Reports other Details: Blood in stool as in history of present illness. ; Denies diarrhea, nausea or vomiting Genitourinary Genitourinary ED: Denies dysuria Musculoskeletal Musculoskeletal: Denies myalgias Integumentary Denies abscess, Abrasions or rash Neurologic Neurologic: Denies headache(s) Endocrine Endocrinology: Denies polydipsia or polyuria Allergic/Immunologic Allergic/Immunologic ED: Denies mouth swelling or urticaria EXAM Physical Exam Const Vital Signs: 08/05/21 12:07 08/05/21 13:06 Temperature 97.6 F L Temperature Source Temporal Pulse Rate 71 Respiratory Rate 13 Respiratory Effort Normal Non-Labored Respiratory Pattern Normal Blood Pressure 100/62 Blood Pressure Mean 74 Pulse Ox 100 Oxygen Delivery Method Room Air Positive well nourished and well developed Constitutional Narrative: Patient does not look toxic or ill. She is not pale. She is not diaphoretic. General Appearance ED: well developed and NAD; Negative for cyanotic or diaphoretic HEENT Negative for trauma Eyes PERRL Neck no JVD General: Negative for tenderness Chest Wall inspection of chest normal Chest Narrative: Mediport in left upper chest intact and noninfected. Resp normal respiratory effort and clear to auscultation bilaterally Effort and Inspection: Negative for pain with movement Auscultation: Negative for rales, rhonchi or wheezes Cardio regular rate GI normal to inspection, nondistended, normoactive bowel sounds and non-tender GI Narrative: Rectal exam will be done with nurse in the room. Palpation: soft Back/Spine no CVA tenderness Extremity normal to inspection Neuro oriented x3 Sensorium / Orientation: alert Psych mental status grossly normal Skin no rashes or lesions noted and no wounds MDM MDM MDM Narrative Medical decision making narrative: Patient's magnesium and potassium were slightly low. I doubt that this is contributing to her symptoms. I did replace her potassium. She is eating and this should come up. She had no notable anemia. Rectal exam done with nursing attendance shows no active fissure. There is a very small skin tag but no sign of acute fissure. No sign of acute bleeding. No mass or tenderness. I also discussed the case with Dr. Cheek. There is no specific concern he had based on her recent medical treatment. We did discuss the possibility of pulmonary embolus. However, this patient never had palpitations chest pain or dyspnea. She does not have it now. She is not tachycardic hypoxic or tachypneic. She has had episodes where she has passed out before although they are not frequent. I do not feel that doing a CTA or D-dimer is appropriate at this time. We discussed this openly with the patient and we agreed. We will get her home. She will watch the bleeding. If she is developing more bleeding she may need to come in for further evaluation or endoscopy. She did have 2 firm hard stools but now her stool is softer. She may have had a small tear or irritation. She may have a little bit of irritation due to her chemotherapy also. Lab Data Labs: Laboratory Results - last 24 hr 08/05/21 10:45 Magnesium 1.5 L Discharge Plan Triage Chief Complaint: Syncope ED Provider: Riaz Hernández Dx/Rx/DC Orders Clinical Impression: Syncope, Rectal bleed Instructions: ED Dizziness or Syncope ... Prescriptions: No Action prochlorperazine maleate 10 mg tablet 10 mg PO Q6H PRN (Reason: nausea and vomiting) Qty: 30 RF: 2 ondansetron 8 mg tablet,disintegrating 8 mg PO Q8H PRN (Reason: nausea and vomiting) Qty: 30 RF: 2 lidocaine-prilocaine 2.5-2.5 % cream 1 applic topical ONCE PRN (Reason: port access) 30 Days Qty: 30 RF: 2 acetaminophen [Tylenol Extra Strength] 500 mg tablet 1,000 mg PO Q6H PRN (Reason: PAIN) RF: 0 Neulasta Onpro 6 mg/0.6 mL Syringe, W/ Wearable Injector SUBCUT RF: 0 Primary Care Provider: Chas Bazzi Referrals: Thierry Carrizales MD [STAFF PHYSICIAN] - 3-5 Days Chas Bazzi DO [Primary Care Provider] - Disposition Disposition: Home, Self Care
[2021-08-05] MEDS: Potassium Chloride Oral Tablet 20 MEQ 40 MEQ PO (12:56)
[2021-08-05 13:07] LABS: Magnesium 1.5 mg/dL (1.6-2.6)
[2021-08-05 15:01] VITALS: BP 102/71; PULSE 73; RESP 16; O2SAT 98
== END 2021-08-05 15:04 | disposition home or self-care (01) ==
PROVIDERS: Emergency Provider Emergency Medicine; PCP Family Medicine; Visit Provider Emergency Medicine
DX: R55 Syncope and collapse (principal); C50.411 Malignant neoplasm of upper-outer quadrant of right female breast; Z86.16 Personal history of COVID-19; F32.A Depression, unspecified; M79.7 Fibromyalgia; Z87.440 Personal history of urinary (tract) infections; Z87.01 Personal history of pneumonia (recurrent); Z87.442 Personal history of urinary calculi; Z79.899 Other long term (current) drug therapy; K62.5 Hemorrhage of anus and rectum
CPT/HCPCS: 83735; 93005; 99282; A4216

== ENCOUNTER → 2021-09-28 | Outpatient (CLI) | payer OTHER, SELFPAY ==
--- NOTE | 2021-09-28 10:14 | MRI_ITS ---
STUDY: BILATERAL BREAST MR WITHOUT AND WITH CONTRAST REASON FOR EXAM: Female, 31 years old. Follow-up of breast cancer. TECHNIQUE: Multi-sequence multi-echo imaging of both breasts was performed with a dedicated breast coil. T1-weighted and T2-weighted images were performed before the administration of contrast. T1-weighted images were also performed after the intravenous administration of 18 mL of Dotarem contrast. COMPARISON: Prior breast MRI study dated 05/29/2021 and unilateral right breast ultrasound dated 05/06/2021 FINDINGS: RIGHT BREAST: The breast tissue is heterogeneously dense with minimal background enhancement. The irregular enhancing mass in the right breast on the prior study has completely resolved. There are no abnormal enhancing masses or areas of non-mass enhancement in the left breast. LEFT BREAST: The breast tissue is heterogeneously dense with minimal background enhancement. There are no abnormal enhancing masses or areas of non-mass enhancement in the left breast. There are no enlarged or abnormal lymph nodes. There is no abnormality in the visualized regions of the chest or liver. MRI/Breast Bilateral W/O and W IMPRESSION: Complete resolution of the irregular enhancing mass in the upper outer quadrant of the right breast. No abnormality noted on today''s breast MRI with contrast. CATEGORY: BIRADS Category 6: Known Biopsy-Proven Malignancy - Appropriate Action Should Be Taken. A letter regarding these results will be sent to the patient by the facility within 30 days. Electronically Signed: Joshua Garland MD at 13:22 EDT ,
[2021-09-28] MEDS: 0.9% Saline Lock 10 ML Syringe IV (11:40)
== END | disposition home or self-care (01) ==
PROVIDERS: PCP Family Medicine; Referring Provider Internal Medicine Hematology & Oncology; Visit Provider Internal Medicine Hematology & Oncology
DX: R92.2 Inconclusive mammogram (principal)
CPT/HCPCS: 77049; A9575; C8908

== ENCOUNTER 2021-11-18 12:30 | Outpatient (RCR) | payer OTHER, SELFPAY ==
--- NOTE | 2021-10-05 13:39 | HP.PTEVAL_ITS ---
Patient's Visit Information DIEGO GIL is a 31 year old F referred to Physical Therapy by ARMANDO Downey with a diagnosis of Muscle Weakness. Date of Evaluation: 10/05/21 Physical Therapist: dEel Joyce DPT - Visit Plan Frequency: 2x /Week Duration: 4 Weeks Plan: 2x a week aquatic- 1x a week land- Goes for mastectomy October 27-make sure she has comprehensive HEP for post surgery. - Subjective Diagnosed with breast cancer May 112021- chemo only and finished September 14. She is scheduled for single right mastectomy in [place] and then anticipate having the other removed after the fall. No reconstruction at this time. Has been in/out of the hospital since the start of treatment[place] single story with no stairs to enter. Not currently working plans to go back and work in the [employer] business. 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 She has increased edema in bilateral LE and feels very deconditioned. She has decreased ROM in her shoulders- pelvic floor and flexibility in all of her major muscle groups. Strength and Endurance is diminished. No pain- other than muscle soreness. Sleep: disturbed- hot flashes and throbbing toes- has not slept for 6 months. No issues with urinary incontinent or bowel. She is doing flexibility at home- now she is ready to get moving. No falls but has had 3 fainting episodes- last was September 19- but she can tell that they are coming- due to lack of nutrition. Goals: back to daily living and normal activities. - Objective Posture: FH, RS- can correct with verbal cues but does not maintain. Gait: no deviation noted- good arm swing and trunk rotation. HR/TR: able without UE A. SLS: 15 sec with increased instability left>right. Stairs: asc/desc 8 recip with no HR- mild decreased control with descent. ROM: WFL in all planes. Strength: Scap: fair minus, UE: Shoulder: 4+/5 throughout, Elbow: 4/5, Line Service Technician: 60 lbs on both sides, Core: Fair minus, Hip: 4/5 throughout, Knee: 4+/5, Ankle: 5/5. Flex: HS: moderate, Gastroc: moderate. Observation: decreased endurance with mobility- requires rest breaks and slow down moments- mild SOB with movement. - Balance/Special Test Scores Quick DASH Score: 34.0900 TUG Test Time Seconds: 6.52 6 Minute Walk Test: 5541 feet which is 1688.9 meters. NO AD- reports HR 130 at end. - Goals Goal 1:: Patient will be I with HEP and progression Goal Time Frame: 4-6 Weeks Goal 2:: Patient will perform 6 min walk test without a slow down or SOB Goal Time Frame: 4-6 Weeks Goal 3:: Patient will report 80% improvement Goal Time Frame: 4-6 Weeks Goal 4:: Patient will maintain proper posture t/o tx session to demo increased scap and core strenght/stabilization Goal Time Frame: 4-6 Weeks - Rehabilitation Potential Physical Therapy Diagnosis: Patient presents with hypomobility- she has decreased LE, UE scap and core strength/stabilization, flex and muscular endurance leading to decreased ability to perform normal ADL's and recreational activities. Rehabilitation Potential: Good - Anticipated Interventions Patient/Client Instruction: Educate patient on: Benefits of Fitness Program Therapeutic Exercise to Include: Strength training, Power training, Balance training, Coordination, Agility training, Body mechanics, Postural training, Flexibilty training, Gait and locomotor training, In an aquatic setting, Dynamic Lumbar Stabilization, Scapular Strength/Stabilization For the Purpose of:: To improve muscle performance and motor function Thank you for the opportunity to evaluate your patient. For Medicare and Medicare HMO plans, please review the plan of care and approve it. It will need to be FAXED BACK to us at [phone] for Medicare purposes. For Medicare only, by signing this I certify the plan of care. Please let me know if there are questions or concerns regarding this plan of care. Physician Signature: Date:
--- NOTE | 2021-10-23 10:16 | HP.PTREVAL_ITS ---
Rose Ascencio, ROXY-C, It has been my pleasure to treat DIEGO GIL over the last 9 visits for Muscle Weakness. Please see the progress note below for an update on the physical therapy plan of care! Subjective: Patient reports that she feels much better- the best she has felt in the last 6 months. She is still wearing compression stockings but its much b andreia. She is starting to see her flexibility and strength come back. Mornings are still rough- takes time to get moving again. She has a comprehensive home exercise program for when she has her mastectomy. Objective/Function: Posture: FH, RS- can correct with verbal cues but does not maintain. Gait: no deviation noted- good arm swing and trunk rotation. HR/TR: able without UE A. SLS: 30 sec bilateral Stairs: asc/desc 8 recip with no HR- mild decreased control with descent. ROM: WFL in all planes. Strength: Scap: fair, UE: Shoulder: 5/5 throughout, Elbow: 5/5, Production Ski Repairer: 80 lbs on both sides, Core: Fair, Hip: 4+/5 throughout, Knee: 5/5, Ankle: 5/5. Flex: HS: moderate, Gastroc: moderate. Observation: endurance is much improved! - Balance/Special Test Scores. TUG Test Time Seconds: 5.8 walking 4.0 jogging. 6 Minute Walk Test: 1814 feet- Error or initial evaluation 518 not 5518. NO AD- reports HR 112 at end. Plan Plan: 10/23/21: Hold- pt to have masectomy next week- will follow up as able. 2x a week aquatic- 1x a week land- Goes for mastectomy October 27-make sure she has comprehensive HEP for post surgery. Balance/Gait/Functional tests - Balance/Special Test Scores Quick DASH Score: 34.0900 TUG Test Time Seconds: 6.52 Tug Test: <10 sec.=free mobile 6 Minute Walk Test: 5541 feet which is 1688.9 meters. NO AD- reports HR 130 at end. Goals Goal 1:: Patient will be I with HEP and progression Goal Time Frame: 4-6 Weeks Goal Progress: Goal Met Goal 2:: Patient will perform 6 min walk test without a slow down or SOB Goal Time Frame: 4-6 Weeks Goal Progress: Goal Met Goal 3:: Patient will report 80% improvement Goal Time Frame: 4-6 Weeks Goal Progress: Progressing Goal 4:: Patient will maintain proper posture t/o tx session to demo increased scap and core strenght/stabilization Goal Time Frame: 4-6 Weeks Anticipated Interventions Patient/Client Instruction: Educate patient on: Benefits of Fitness Program Therapeutic Exercise to Include: Strength training, Power training, Balance training, Coordination, Agility training, Body mechanics, Postural training, Flexibilty training, Gait and locomotor training, In an aquatic setting, Dynamic Lumbar Stabilization, Scapular Strength/Stabilization For the Purpose of:: To improve muscle performance and motor function Please do not hesitate to contact me at [phone] by phone or if you have questions or concerns regarding this new plan of care! Sincerely, MARAH MojicaT
--- NOTE | 2021-11-18 13:23 | HP.PTDCSUM ---
It has been my pleasure to treat DIEGO NARVAEZ [facility] referred by ARMANDO Downey, with the diagnosis of Muscle Weakness for a total of 10 visit(s). Discharge Date: Please see the following information for a summary of their discharge status. Subjective: Complete Mastectomy's of the right breast 10/27/21 and 2 axillary nodes. And everything came back clean. She meets with oncology today- leaning towards hysterectomy vs medication. She felt great going into surgery- she has been down for 4 weeks and feels yuval yucky. She is back to full ADL's with the exception of hanging clothes. She is going to soccer practice and is putting in about 7,000 steps daily. She feels that she is 40% back to her normal baseline of before she got sick- prior to this surgery she was feeling 60%. 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 She does not think she has pain but she feels tightness and a little bit of numbness. More pins and needles. She has some shooting pains if she stretches to far. Goals: increase range of motion in her right shoulder. % Improvement: 40 Objective/Function: Posture: good throughout session. Observation: incision healing well no s/s of infection. ROM: WFL in all planes- does take time to get to full abduction. Strength: Scap: good, Shoulder: 5/5 in neutral, Elbow/Wrist: 5/5 Notch Machine Operator: Left: 70 Right: 70 Goal 1:: Patient will be I with HEP and progression Goal Progress: Goal Met Goal 2:: Patient will perform 6 min walk test without a slow down or SOB Goal Progress: Goal Met Goal 3:: Patient will report 80% improvement Goal Progress: Progressing Goal 4:: Patient will maintain proper posture t/o tx session to demo increased scap and core strenght/stabilization Plan: 11/18/21: Discharge to I HEP. 10/23/21: Hold- pt to have masectomy next week- will follow up as able. 2x a week aquatic- 1x a week land- Goes for mastectomy October 27-make sure she has comprehensive HEP for post surgery. If there are questions or concerns regarding this patient's physical therapy, please feel free to call me at [phone]. Thank you for the referral of this patient. Sincerely, Edel Joyce, MARAHT Balance/Gait/Functional tests - Balance/Special Test Scores Quick DASH Score: 34.0900 TUG Test Time Seconds: 6.52 Tug Test: <10 sec.=free mobile 6 Minute Walk Test: 5541 feet which is 1688.9 meters. NO AD- reports HR 130 at end.
== END 2021-11-18 13:45 | disposition home or self-care (01) ==
LOC: PT 12:30
PROVIDERS: PCP Family Medicine; Referring Provider Nurse Practitioner Family; Visit Provider Nurse Practitioner Family
DX: M62.81 Muscle weakness (generalized) (principal); C50.411 Malignant neoplasm of upper-outer quadrant of right female breast
CPT/HCPCS: 97110; 97113; 97162; 97164; 97530

== ENCOUNTER 2022-02-24 07:48 | Outpatient (CLI) | payer OTHER, SELFPAY ==
--- NOTE | 2022-02-24 07:50 | ECHOLONC_ITS ---
Version 2 Reason For Study: HIGH RISK MEDS Procedure This was a limited 2D transthoracic echocardiogram. Myocardial strain analysis was performed in this exam to aid in the assessment of cardiac function. Exam performed in department. Left Ventricle Normal LV size. Left ventricular systolic function is normal. The estimated ejection fraction is 60 %. No regional wall motion abnormalities noted. Right Ventricle Normal RV size. Normal systolic function. Mitral Valve Normal mitral valve. Great Vessels Normal aortic root. Pericardium/Pleural No pericardial effusion. MMode/2D Measurements & Calculations LVIDd: 4.6 cm IVSd: 0.92 cm Ao root diam: 2.7 cm LVIDs: 3.3 cm LVPWd: 1.2 cm FS: 28.0 % LAV(MOD-sp4): 25.0 ml SV(MOD-sp4): 46.0 ml LVAd ap4: 26.1 cm2 LVLd ap4: 8.4 cm EDV(MOD-sp4): 70.9 ml EDV(sp4-el): 69.0 ml LVAs ap4: 13.6 cm2 LVLs ap4: 7.1 cm ESV(MOD-sp4): 24.9 ml ESV(sp4-el): 22.2 ml EF(MOD-sp4): 64.9 % EF(sp4-el): 67.8 % SV(sp4-el): 46.8 ml LA A4 area: 12.6 cm2 LA dimension(2D): 3.4 cm RA A4 area: 16.6 cm2 ECHO/ONC Echo, Limited Study Interpretation Summary Normal LV size. Left ventricular systolic function is normal. The estimated ejection fraction is 60 %. The global longitudinal strain is normal. The global longitudinal strain = -17. 6 % (normal). Ordering Physician: Thierry Carrizales Referring Physician: ASHLEY BEJARANO Performed By: Anh Hua RCS
== END 2022-02-24 23:59 | disposition home or self-care (01) ==
LOC: CVS 07:49
PROVIDERS: PCP Family Medicine; Visit Provider Internal Medicine Hematology & Oncology
DX: C50.411 Malignant neoplasm of upper-outer quadrant of right female breast (principal); Z79.899 Other long term (current) drug therapy
CPT/HCPCS: 93308; 93356

== ENCOUNTER → 2022-03-30 | Outpatient (CLI) | payer OTHER, SELFPAY ==
--- NOTE | 2022-03-30 08:46 | ECHODONC_ITS ---
Reason For Study: C[employer] THERAPY Procedure This was a 2D Doppler, Color Flow transthoracic echocardiogram. Myocardial strain analysis was performed in this exam to aid in the assessment of cardiac function. Exam performed in department. Left Ventricle Normal LV size. Left ventricular systolic function is normal. The estimated ejection fraction is 60 %. No regional wall motion abnormalities noted. Right Ventricle Normal RV size. Normal systolic function. Atria Normal left atrium. Normal right atrium. Mitral Valve Normal mitral valve. Tricuspid Valve Normal tricuspid valve. Aortic Valve Normal aortic valve. Trisinus/trileaflet aortic valve. Pulmonic Valve Normal pulmonic valve. Mild (1+) pulmonic valve insufficiency. Great Vessels Normal aortic root. The pulmonary artery is normal size. Normal inferior vena cava. Pericardium/Pleural No pericardial effusion. MMode/2D Measurements & Calculations LVIDd: 5.3 cm IVSd: 0.64 cm Ao root diam: 3.0 cm LVIDs: 3.6 cm LVPWd: 0.80 cm RVDd: 3.1 cm FS: 31.5 % LAV(MOD-bp): 47.4 ml LVAd ap4: 32.3 cm2 SV(MOD-sp4): 59.7 ml LAV(MOD-bp) Indexed: 24.8 ml/m2 LVLd ap4: 8.9 cm LAV(MOD-sp2): 42.9 ml EDV(MOD-sp4): 97.8 ml LAV(MOD-sp4): 43.8 ml EDV(sp4-el): 99.8 ml LVAs ap4: 17.7 cm2 LVLs ap4: 7.2 cm ESV(MOD-sp4): 38.2 ml ESV(sp4-el): 37.0 ml EF(MOD-sp4): 61.0 % EF(sp4-el): 63.0 % SV(sp4-el): 62.9 ml LA A4 area: 17.0 cm2 LA dimension(2D): 2.9 cm RA A4 area: 15.4 cm2 Time Measurements MV dec time: 0.22 sec Doppler Measurements & Calculations MV E max jonathon: 81.7 cm/sec Lat Peak E' Jonathon: 17.3 cm/sec Med Peak E' Jonathon: 15.4 cm/sec MV A max jonathon: 49.8 cm/sec E/E' lat: 4.7 E/E' med: 5.3 MV E/A: 1.6 Ao V2 max: 109.0 cm/sec LV V1 max: 71.6 cm/sec PA V2 max: 82.3 cm/sec Ao max P.8 mmHg LV V1 max P.0 mmHg PI end-d jonathon: 60.2 cm/sec TR max jonathon: 218.6 cm/sec TR max P.1 mmHg ECHO/ONC Echo Complete Interpretation Summary Normal LV size. Left ventricular systolic function is normal. The estimated ejection fraction is 60 %. Structurally normal valves. The global longitudinal strain is normal. The globa l longitudinal strain = -18.5 % (normal). Ordering Physician: Rose Ascencio Referring Physician: ASHLEY BEJARANO Performed By: Karie Granados RDCS
== END | disposition home or self-care (01) ==
LOC: CVS 08:45
PROVIDERS: PCP Family Medicine; Referring Provider Nurse Practitioner Family; Visit Provider Nurse Practitioner Family
DX: Z51.81 Encounter for therapeutic drug level monitoring (principal); Z79.899 Other long term (current) drug therapy
CPT/HCPCS: 93306; 93356

== ENCOUNTER → 2022-06-08 | Outpatient (CLI) | payer OTHER, SELFPAY ==
--- NOTE | 2022-06-08 | EMB_PTH ---
PATIENT: DIEGO GIL LOC: [facility] U#:[id number] AGE/SX: 31/F ROOM: RE06/08/[address]: ARMANDO Burt : 1990 BED: DIS: 06/08/2022 SPEC #: [id number] RECD: 06/08/22 13:33 STATUS: LARA REQ #: [id number] KHARI: 06/08/22 00:[address]: Tash Garber NP DEPT: SURGICAL PATHOLOGY RECD BY: Jax Sierra ENTERED: 06/08/22 13:33 SP TYPE: ENDOM BX/C WILLY DR: Dr. Chas Bazzi DO Tissues: Endometrium, NOS Procedures: Surgery Specimen Level IV HEADER OPERATION: Endometrial biopsy PRE-OP DIAGNOSIS: Abnormal uterine bleeding on Tamoxifen TISSUE SUBMITTED: Endometrial tissue MICROSCOPIC DIAGNOSIS Endometrial biopsy: Proliferative endometrium. See comment. SERENE:thomas 06/09/2022 COMMENT Clinical correlation and appropriate follow up are necessary. Please make reference to previous specimen ([id number]) right breast mass, core biopsy with diagnosis of ?invasive ductal carcinoma.? MICROSCOPIC DESCRIPTION Slides are reviewed. GROSS DESCRIPTION Received is one container labeled with the patient's name and not further designated. The specimen consists of multiple fragments of hemorrhagic mucoid tissue that in aggregate measure 2.0 x 2.0 x 0.1 cm. The specimen is totally submitted in one cassette. / SJ:thomas 06/08/2022 TC:4 CPT: 13039
[2022-06-14 19:04] LABS: HPV APTIMA, High Risk Negative (Negative)
== END | disposition home or self-care (01) ==
LOC: LABSPEC 11:32
PROVIDERS: PCP Family Medicine; Visit Provider Nurse Practitioner Women's Health
DX: Z01.419 Encounter for gynecological examination (general) (routine) without abnormal findings (principal)
CPT/HCPCS: 87624; 88175; 88305; G0145

== ENCOUNTER → 2022-06-10 | Outpatient (CLI) | payer OTHER, SELFPAY ==
--- NOTE | 2022-06-10 12:26 | US_ITS ---
INDICATION: AUB, on tamoxifen EXAMINATION: Ultrasound US Pelvis Non OB Complete With Transvaginal Imaging TECHNIQUE: Transabdominal and transvaginal pelvic ultrasound was performed. Grayscale, spectral waveform, and color flow Doppler evaluation of the adnexa. COMPARISON: None. FINDINGS: UTERUS: Anteverted. The uterus measures 8.4 x 5.4 x 3.4 cm. There is no uterine mass. The endometrial stripe measures 8 mm in diameter with mild heterogeneity/fluid in the lower endometrium. RIGHT OVARY: 2.6 x 2.4 x 1.7 cm. Non-enlarged, normal echogenicity. There is normal arterial inflow and venous outflow present in the right ovary. LEFT OVARY: 2.5 x 2.5 x 2.2 cm. There is a 2 x 2.4 x 1.8 cm cyst. There is normal arterial inflow and venous outflow present in the left ovary. FREE FLUID: Trace. US/Pelvic (Non ) IMPRESSION: Left ovarian cyst. There is heterogeneity/fluid in the lower endometrial cavity. Electronically Signed: Noe Maier DO at 23:57 EST Reading Location ID and State: [facility] / [place] Tel [phone], Service support ,
== END | disposition home or self-care (01) ==
LOC: US 12:25
PROVIDERS: PCP Family Medicine; Visit Provider Nurse Practitioner Women's Health
DX: N93.9 Abnormal uterine and vaginal bleeding, unspecified (principal); Z79.810 Long term (current) use of selective estrogen receptor modulators (SERMs)
CPT/HCPCS: 76830; 76856

== ENCOUNTER → 2022-08-20 | Outpatient (CLI) | payer OTHER, SELFPAY ==
--- NOTE | 2022-08-20 09:39 | RAD_ITS ---
STUDY: X-RAY CHEST REASON FOR EXAM: Female, 32 years old. Sob TECHNIQUE: PA and lateral views of the chest. COMPARISON: Comparison is made with prior study dated July 30, 2021. FINDINGS: The patient is status post right mastectomy and right axial lymph node dissection. Hyperinflation. The lungs are clear. There is no demonstrated pleural abnormality. Normal size heart. Normal mediastinum and megan. Normal visualized pulmonary arteries. Normal visualized aortic arch and descending thoracic aorta. Normal visualized thoracic spine. Normal visualized ribs, clavicles, and shoulders. There is no demonstrated abnormality of the visualized soft tissue structures of the upper abdomen. RAD/Chest PA and Lateral IMPRESSION: Normal x-ray examination of the chest. Electronically Signed: August Beach MD at 15:24 EDT ,
== END | disposition home or self-care (01) ==
LOC: RAD 09:39
PROVIDERS: PCP Family Medicine; Referring Provider Internal Medicine Cardiovascular Disease; Visit Provider Internal Medicine Cardiovascular Disease
DX: R06.02 Shortness of breath (principal)
CPT/HCPCS: 71046

== ENCOUNTER → 2022-08-24 | Outpatient (CLI) | payer OTHER, SELFPAY ==
[2022-08-24 09:16] LABS: Cholesterol 161 mg/dL (200); High Density Lipoprotein 59 mg/dL; Triglycerides 163 mg/dL; Very Low Density Lipoprotein 33 mg/dL (5-40)
--- NOTE | 2022-08-24 09:24 | ECHOLONC_ITS ---
Reason For Study: DYSPNEA Procedure This was a 2D Doppler, Color Flow transthoracic echocardiogram. Myocardial strain analysis was performed in this exam to aid in the assessment of cardiac function. Exam performed in department. Left Ventricle Normal LV size. Left ventricular systolic function is normal. The estimated ejection fraction is 55 %. No regional wall motion abnormalities noted. Right Ventricle Normal RV size. Normal systolic function. Pericardium/Pleural No pericardial effusion. MMode/2D Measurements & Calculations LVIDd: 5.0 cm IVSd: 0.82 cm Ao root diam: 2.6 cm LVIDs: 3.6 cm LVPWd: 0.69 cm FS: 27.8 % LAV(MOD-bp): 44.6 ml LVAd ap4: 30.3 cm2 SV(MOD-sp4): 56.8 ml LAV(MOD-bp) Indexed: 22.8 ml/m2 LVLd ap4: 8.7 cm LAV(MOD-sp2): 40.7 ml EDV(MOD-sp4): 91.6 ml LAV(MOD-sp4): 39.8 ml EDV(sp4-el): 89.5 ml LVAs ap4: 17.3 cm2 LVLs ap4: 7.8 cm ESV(MOD-sp4): 34.7 ml ESV(sp4-el): 32.7 ml EF(MOD-sp4): 62.1 % EF(sp4-el): 63.5 % SV(sp4-el): 56.9 ml LA dimension(2D): 3.6 cm LA A4 area: 16.5 cm2 RA A4 area: 10.0 cm2 ECHO/ONC Echo, Limited Study Interpretation Summary Normal LV size. Left ventricular systolic function is normal. The estimated ejection fraction is 55 %. The global longitudinal strain is normal. The global longitudinal strain = -18. 5 % (normal). Ordering Physician: Salas Benitez Referring Physician: Salas Benitez Performed By: Anh Hua RCS
[2022-08-24 09:26] LABS: BNP,B-Type NATRIURETIC PEPTIDE 25.2 pg/mL (0-100)
== END | disposition home or self-care (01) ==
LOC: CVS 09:22
PROVIDERS: PCP Family Medicine; Referring Provider Internal Medicine Cardiovascular Disease; Visit Provider Internal Medicine Cardiovascular Disease
DX: I34.0 Nonrheumatic mitral (valve) insufficiency (principal); R06.02 Shortness of breath
CPT/HCPCS: 36415; 80061; 83880; 93308; 93356

== ENCOUNTER 2022-10-25 01:28 | Emergency (ER) | payer OTHER, SELFPAY ==
[2022-10-25 01:30] VITALS: BP 125/71; PULSE 81; RESP 18; TEMP 36.1; O2SAT 97; BMI 37.5
--- NOTE | 2022-10-25 01:34 | RAD_ITS ---
STUDY: X-RAY - RIGHT FOOT CLINICAL: Female, 32 years old. INJURY TECHNIQUE: 3 view(s) of the foot. COMPARISON: None. FINDINGS: Normal talus, calcaneus, and tarsal bones. Normal visualized subtalar, talonavicular, calcaneocuboid, tarsal and tarsometatarsal articulations. Normal metatarsi. Normal metatarsophalangeal joint of the great toe. Normal tibial and fibular sesamoid bones. Normal interphalangeal joint of the great toe. Normal phalanges of the great toe. Normal second through fifth metatarsophalangeal joints. Normal interphalangeal joints and phalanges of the lesser toes. The soft tissue structures are unremarkable. RAD/Foot min 3 Views IMPRESSION: Normal x-ray examination of the foot. Electronically Signed: Mechelle Tamayo MD at 2:23 EDT ,
--- NOTE | 2022-10-25 01:54 | RAD_ITS ---
STUDY: X-RAY - RIGHT ANKLE REASON FOR EXAM: Female, 32 years old. Pain TECHNIQUE: 3 view(s) of the ankle. COMPARISON: None. FINDINGS: Normal visualized distal tibia and fibula. Normal medial and lateral malleoli. Normal tibiotalar articulation and ankle mortise. Normal visualized talus and calcaneus. The visualized subtalar, talonavicular, calcaneocuboid and tarsal articulations are normal. The soft tissue structures are unremarkable. RAD/Ankle min 3 Views IMPRESSION: Normal x-ray examination of the ankle. Electronically Signed: Mechelle Tamayo MD at 2:22 EDT ,
[2022-10-25] MEDS: Ketorolac 30 MG/ML Syringe IM (02:07)
--- NOTE | 2022-10-25 02:41 | EDS_ITS ---
HPI History of Present Illness Chief Complaint: Lower Extremity Injury Informant: patient and spouse/S.O. Narrative Narrative: Patient is a 32-year-old female who states she was at a concert this evening when she fell and also had her right foot landed on by a other member of the concert. She states that she is unsure if her foot/ankle got rolled on or was simply smashed but after the trauma she had immediate pain. She states that she waited a few hours to see if the pain would resolve with time and it has not done so and therefore she has concern for fracture and comes in for evaluation. [facility] Medical History Alcohol use Anemia Ankle edema, bilateral Anxiety Bone pain due to G-CSF Breast cancer of upper-outer quadrant of right female breast Cancer Chronic headaches CINV (chemotherapy-induced nausea and vomiting) COVID-19 Depression Diarrhea Diarrhea due to drug Drug rash Encounter for immunotherapy Encounter for monitoring cardiotoxic drug therapy Fatigue Fibromyalgia Influenza due to influenza virus, type A, human Injury of head and neck Kidney stones Muscle weakness Myalgia Non-smoker Pneumonia Right flank pain Tremor Wears contact lenses Home Medications acetaminophen 500 mg tablet (Tylenol Extra Strength) 1,000 mg PO Q6H PRN PAIN 06/15/21 [History Last Taken Unknown] docusate sodium 100 mg capsule (Colace) 100 mg PO DAILY 12/28/21 [History Last Taken Unknown] tamoxifen 20 mg tablet 20 mg PO DAILY #90 tabs 02/09/22 [Rx Last Taken Unknown] cholecalciferol (vitamin D3) 50 mcg (2,000 unit) capsule 50 mcg PO DAILY 03/02/22 [History Last Taken Unknown] Therapuetic Massage #1 ea 07/27/22 [Rx Last Taken Unknown] hydrocodone-acetaminophen 5-325mg 5mg-325mg 1 tab PO Q6H PRN PRN Pain 3 days #12 TABLETS 10/25/22 [Rx Last Taken Unknown] Allergy/AdvReac Type Severity Reaction Status Date / Time cefdinir Allergy Mild rash Verified 10/25/22 01:29 Influenza Virus Vaccines Allergy Hives Verified 10/25/22 01:29 Family History Father Alcoholism Mother Hypertension Hyperlipidemia Aunt Breast cancer 2 great aunts - both maternal 1 aunt - paternal Surgical History H/O mastectomy History of breast biopsy S/P medial meniscus repair of right knee S/P tonsillectomy Social History household members: other details: fiancee current occupational status: employed current occupation: [employer]. Smoking Status: Never smoker Electronic Cigarette Use: not used second hand exposure: Yes alcohol intake: current alcohol intake frequency: holidays/special occasions only details: occasionally/socially substance use type: does not use caffeine: No seatbelt use: always do you feel safe at home: Yes ROS ROS ED Constitutional Constitutional ED: Denies chills or fever(s) Eyes Eyes: Denies change in vision ENT ENT ED: Denies sore throat Cardiovascular Cardiovascular: Denies chest pain Respiratory/Chest Respiratory/Chest: Denies cough or dyspnea Gastrointestinal Gastrointestinal: Denies abdominal pain, diarrhea, nausea or vomiting Genitourinary Genitourinary ED: Denies dysuria Musculoskeletal Musculoskeletal: Reports other Details: Positive right foot/ankle pain Integumentary Denies Abrasions or rash Neurologic Neurologic: Denies headache(s) Hematologic/Lymphatic Hematologic/Lymphatic: Denies easy bleeding or easy bruising EXAM Physical Exam Const Vital Signs: 10/25/22 01:30 Temperature 97 F L Temperature Source Temporal Pulse Rate 81 Respiratory Rate 18 Blood Pressure 125/71 H Blood Pressure Mean 89 Pulse Ox 97 Positive well nourished and well developed General Appearance ED: well developed HEENT HEENT Narrative: Normocephalic atraumatic Eyes PERRL and EOMs intact bilaterally Neck supple Resp normal respiratory effort and clear to auscultation bilaterally Cardio regular rate and regular rhythm Extremity Extremity Narrative: Right lower extremity is neurovascularly intact. There is soft tissue swelling to the dorsal aspect of the right foot with ecchymosis noted along the distal aspect of the second metatarsal at the MTP joint. Active and passive range of motion is decreased secondary to pain. There is no obvious bony deformity or joint effusion. There is pain on palpation in the ankle mortise/joint space region. However Achilles tendon is intact and ankle ligaments are stable. Neuro oriented x3 and CN's II-XII intact bilaterally Sensorium / Orientation: alert Psych mental status grossly normal Skin no rashes or lesions noted Skin Narrative: Patient has soft tissue swelling to the dorsal aspect of the right foot with ecchymosis near the second MTP joint space. MDM MDM MDM Narrative Medical decision making narrative: Patient presented to the ER with direct trauma to the right foot. She has soft tissue swelling ecchymosis concerning for underlying fracture. By exam she has no obvious ligamentous tear or Achilles tendon injury. She had no report or signs of head trauma and therefore this time I felt no need for an ankle and foot x-ray to check for underlying trauma. X-rays revealed no acute fracture or dislocation indicating patient has a foot contusion and foot sprain. To be given a postoperative shoe to help with weightbearing but otherwise as there is no acute fracture dislocation neurovascular compromise or signs of ligamentous or tendon injury she is otherwise safe for discharge. History & Record Review Discussion w/independent historian: Patient and Significant other Radiography Diagnostic Testing: Clinical Impression(s) from Imaging Studies Foot X-Ray 10/25/22 01:34 IMPRESSION: Normal x-ray examination of the foot. Electronically Signed: Mechelle Tamayo MD at 2:23 EDT , Ankle X-Ray 10/25/22 01:54 IMPRESSION: Normal x-ray examination of the ankle. Electronically Signed: Mechelle Tamayo MD at 2:22 EDT , X-ray of the right ankle and right foot as interpreted by the emergency medicine physician reveals no acute fracture or dislocation Discharge Plan Triage Chief Complaint: Lower Extremity Injury ED Provider: Ralph Van Dx/Rx/DC Orders Clinical Impression: Contusion of foot, right, Right foot sprain Instructions: ED Foot Contusion, ED Foot Sprain Prescriptions: New hydrocodone-acetaminophen 5-325 mg tablet 1 tab PO Q6H PRN PRN (Reason: Pain) 3 Days Qty: 12 0RF No Action acetaminophen [Tylenol Extra Strength] 500 mg tablet 1,000 mg PO Q6H PRN (Reason: PAIN) docusate sodium [Colace] 100 mg capsule 100 mg PO DAILY tamoxifen 20 mg tablet 20 mg PO DAILY Qty: 90 3RF cholecalciferol (vitamin D3) 50 mcg (2,000 unit) capsule 50 mcg PO DAILY (DME) Therapuetic Massage See Rx Instructions .Route .MEDSUPPLY Qty: 1 0RF Rx Instructions: Once monthly to address complaints of generalized myalgias related to the use of endocrine therapy for breast cancer Primary Care Provider: Chas Bazzi Referrals: Chas Bazzi DO [Primary Care Provider] - Disposition Disposition: Home, Self Care Discharge Date/Time: 10/25/22 02:54
== END 2022-10-25 02:54 | disposition home or self-care (01) ==
PROVIDERS: Emergency Provider Emergency Medicine; PCP Family Medicine; Visit Provider Emergency Medicine
DX: S90.31XA Contusion of right foot, initial encounter (principal); S93.601A Unspecified sprain of right foot, initial encounter; W18.30XA Fall on same level, unspecified, initial encounter; Y92.89 Other specified places as the place of occurrence of the external cause; Z85.3 Personal history of malignant neoplasm of breast; Z90.11 Acquired absence of right breast and nipple
CPT/HCPCS: 73610; 73630; 96372; 99283

== ENCOUNTER → 2022-11-08 | Outpatient (CLI) | payer OTHER, SELFPAY ==
--- NOTE | 2022-11-08 11:25 | RAD_ITS ---
STUDY: X-RAY - RIGHT FOOT CLINICAL: Female, 32 years old. FOOT/ANKLE PAIN -- STAT. Attention to the fourth and fifth metatarsals. TECHNIQUE: 3 view(s) of the foot. COMPARISON: None. FINDINGS: Normal talus, calcaneus, and tarsal bones. Incidental note is made of a talar neck beak. This a normal variant. Normal visualized subtalar, talonavicular, calcaneocuboid, tarsal and tarsometatarsal articulations. Normal metatarsi. Normal metatarsophalangeal joint of the great toe. Normal tibial and fibular sesamoid bones. Normal interphalangeal joint of the great toe. Normal phalanges of the great toe. Normal second through fifth metatarsophalangeal joints. Normal interphalangeal joints and phalanges of the lesser toes. The soft tissue structures are unremarkable. RAD/Foot min 3 Views IMPRESSION: Normal x-ray examination of the foot. Electronically Signed: August Beach MD at 12:03 EDT ,
== END | disposition home or self-care (01) ==
LOC: MTRAD 11:23
PROVIDERS: PCP Family Medicine; Referring Provider Physician Assistant; Visit Provider Physician Assistant
DX: M25.571 Pain in right ankle and joints of right foot (principal)
CPT/HCPCS: 73630

== ENCOUNTER → 2023-03-14 | Outpatient (CLI) | payer OTHER, SELFPAY ==
--- NOTE | 2023-03-14 12:43 | ECHODONC_ITS ---
Version 2 Reason For Study: SYNCOPE Procedure This was a 2D Doppler, Color Flow transthoracic echocardiogram. Myocardial strain analysis was performed in this exam to aid in the assessment of cardiac function. Exam performed in department. Left Ventricle Normal LV size. Left ventricular systolic function is normal. The estimated ejection fraction is 65 %. No regional wall motion abnormalities noted. Right Ventricle Normal RV size. Normal systolic function. Atria Normal left atrium. Normal right atrium. Mitral Valve Normal mitral valve. Tricuspid Valve Normal tricuspid valve. Aortic Valve Trisinus/trileaflet aortic valve. Pulmonic Valve The pulmonic valve is not well visualized. Great Vessels Normal aortic root. The pulmonary artery is normal size. Normal inferior vena cava. Pericardium/Pleural No pericardial effusion. MMode/2D Measurements & Calculations LVIDd: 5.1 cm IVSd: 0.80 cm Ao root diam: 2.9 cm LVIDs: 3.4 cm LVPWd: 0.78 cm RVDd: 2.5 cm FS: 33.2 % LAV(MOD-bp): 36.4 ml LVAd ap4: 28.6 cm2 SV(MOD-sp4): 50.8 ml LAV(MOD-bp) Indexed: 18.5 ml/m2 LVLd ap4: 8.6 cm LAV(MOD-sp2): 37.1 ml EDV(MOD-sp4): 80.6 ml LAV(MOD-sp4): 31.8 ml EDV(sp4-el): 81.2 ml LVAs ap4: 15.6 cm2 LVLs ap4: 7.0 cm ESV(MOD-sp4): 29.8 ml ESV(sp4-el): 29.9 ml EF(MOD-sp4): 63.0 % EF(sp4-el): 63.2 % SV(sp4-el): 51.3 ml LA A4 area: 14.4 cm2 LA dimension(2D): 3.1 cm RA A4 area: 11.1 cm2 TAPSE: 2.6 cm Time Measurements MV dec time: 0.19 sec Doppler Measurements & Calculations MV E max jonathon: 90.7 cm/sec Lat Peak E' Jonathon: 14.3 cm/sec Med Peak E' Jonathon: 18.2 cm/sec MV A max jonathon: 54.0 cm/sec E/E' lat: 6.3 E/E' med: 5.0 MV E/A: 1.7 MV V2 max: 99.4 cm/sec Ao V2 max: 131.4 cm/sec MV max P.0 mmHg MV dec slope: 475.2 cm/sec2 Ao max P.9 mmHg MV V2 mean: 55.5 cm/sec Ao V2 mean: 91.4 cm/sec MV mean P.4 mmHg Ao mean P.8 mmHg MV V2 VTI: 30.6 cm Ao V2 VTI: 26.8 cm AV (velocity ratio): 0.87 LV V1 max: 104.0 cm/sec PA V2 max: 84.0 cm/sec LV V1 max P.3 mmHg PA V2 mean: 66.0 cm/sec LV V1 mean P.7 mmHg LV V1 mean: 78.7 cm/sec LV V1 VTI: 23.4 cm ECHO/ONC Echo Complete Interpretation Summary Normal LV size. Left ventricular systolic function is normal. The estimated ejection fraction is 65 %. Structurally normal valves. The global longitudinal strain is normal. The globa l longitudinal strain = -19.3 % (normal). Ordering Physician: Rose Ascencio Referring Physician: Rose Ascencio Performed By: Anh Hua RCS
== END | disposition home or self-care (01) ==
LOC: CVS 12:42
PROVIDERS: PCP Family Medicine; Referring Provider Nurse Practitioner Family; Visit Provider Nurse Practitioner Family
DX: R55 Syncope and collapse (principal)
CPT/HCPCS: 93306; 93356

== ENCOUNTER → 2023-03-15 | Outpatient (CLI) | payer OTHER, SELFPAY ==
--- NOTE | 2023-03-15 17:20 | MRI_ITS ---
STUDY: MRI BRAIN WITH AND WITHOUT CONTRAST REASON FOR EXAM: Female, 32 years old. right hand tremor; h/o breast cancer TECHNIQUE: Standardized multiplanar fat and water weighted pulse sequences were obtained. IV 19 cc Clariscan was administered for the contrast portion of the examination. COMPARISON: None. FINDINGS: Normal size of the ventricles and extra-axial spaces for the patient''s age. Normal white matter tracts of the supratentorial brain. Normal bilateral basal ganglia. Normal thalami. There is no extra-axial fluid accumulation. Normal flow voids within the major intracranial circulation suggesting patency by spin echo criteria. Normal venous enhancement. There is no enhancing intra-axial or extra-axial abnormality. Normal sella turcica, pituitary gland, infundibular stalk, optic chiasm and hypothalamus. Normal tectal plate and pineal gland. Normal midbrain, carlos and medulla. Normal cerebellum. Normal basal cisterns. Normal bilateral temporal bones. Normal bilateral internal auditory canals. No demonstrated orbital abnormality, within the constraints of a routine brain study. Normal visualized paranasal sinuses. Normal calvarium and skull base. Normal visualized soft tissue structures. Normal visualized upper cervical spine. MRI/Brain W/WO Contrast IMPRESSION: Normal unenhanced and enhanced MRI of the brain. Electronically Signed: Adam Wells MD at 18:34 EST ,
== END | disposition home or self-care (01) ==
LOC: MRI 17:18
PROVIDERS: PCP Family Medicine; Referring Provider Nurse Practitioner Family; Visit Provider Nurse Practitioner Family
DX: R25.1 Tremor, unspecified (principal)
CPT/HCPCS: 70553; A9575

== ENCOUNTER → 2023-10-18 | Outpatient (CLI) | payer OTHER, SELFPAY ==
[2023-10-18 13:49] LABS: T4 Free Direct 0.87 ng/dL (0.76-1.46); Thyroid Stim Hormone (TSH) 2.19 uIU/mL (0.358-3.74)
[2023-10-18 15:10] LABS: Hemoglobin A1c 4.3 % (3.8-5.6)
== END | disposition home or self-care (01) ==
LOC: PAVLAB 12:58
PROVIDERS: PCP Family Medicine; Referring Provider Obstetrics & Gynecology; Visit Provider Obstetrics & Gynecology
DX: R63.5 Abnormal weight gain (principal)
CPT/HCPCS: 36415; 82306; 83036; 84439; 84443

== ENCOUNTER 2023-12-27 08:52 | Day surgery (SDC) | payer OTHER, SELFPAY ==
[2023-12-27] VITALS (8 sets, daily range): BP systolic 93–113; BP diastolic 55–71; PULSE 55–74; RESP 16–20; TEMP 36.3–36.8; O2SAT 98–100; BMI 35.3
--- NOTE | 2023-12-27 | FALS_PTH ---
PATIENT: DIEGO GIL LOC: [facility] [place][id number] AGE/SX: 33/F ROOM: RE12/27/[address]: Dr. Ana Bowie MD : 1990 BED: DIS: 12/27/2023 SPEC #: [id number] RECD: 12/27/23 14:18 STATUS: LARA REMyrtle #: [id number] KHARI: 12/27/23 00:[address]: Ana Bowie DEPT: SURGICAL PATHOLOGY RECD BY: Jax Sierra ENTERED: 12/27/23 14:19 SP TYPE: FALL TUBES OTHR DR: Dr. Chas Bazzi, Tissues: Fallopian tube Procedures: Surgery Specimen Level II HEADER OPERATION: Laparoscopic, salpingectomy PRE-OP DIAGNOSIS: Elective sterilization TISSUE SUBMITTED: Bilateral fallopian tubes MICROSCOPIC DIAGNOSIS Bilateral fallopian tubes, salpingectomy: Bilateral fallopian tubes, no pathologic diagnosis. SJ: 12/28/2023 MICROSCOPIC DESCRIPTION Slides are reviewed. GROSS DESCRIPTION Received in fixative is one container labeled with the patient's name and designated bilateral fallopian tubes. The specimen consists of bilateral fallopian tubes including fimbrial ends measuring 6.5cm in length and 0.6cm in diameter and 6.0cm in length and 0.5cm in diameter. The fallopian tubes are not identified as right or left. Sections reveal unremarkable cut surfaces. Art Installer sections are submitted in two cassettes with each cassette containing one fallopian tube. / SERENE: 12/27/2023 TC:4 CPT: 70371 x2
--- NOTE | 2023-12-27 06:22 | PCM.HP.BLA ---
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 Is patient in pain?: No Allergies cefdinir Allergy (Mild, Verified 12/15/23 09:08) rashInfluenza Virus Vaccines Allergy (Verified 12/15/23 09:08) Hives Medications ?Medication ?Instructions ?Recorded ?Confirmed ?Type acetaminophen 500 mg tablet 1,000 mg PO Q6H PRN PAIN 06/15/21 12/19/23 History (Tylenol Extra Strength) tamoxifen 20 mg tablet 20 mg PO DAILY #90 tabs 02/22/23 12/19/23 Rx Therapuetic Massage #1 ea 08/02/23 12/19/23 Rx venlafaxine 75 mg capsule,extended 75 mg PO DAILY 09/20/23 12/19/23 History release 24 hr (Effexor XR) glucosamine sulfate 500 mg tablet 500 mg PO DAILY 09/23/23 12/19/23 History (Glucosamine) multivitamin (Daily Multi-Vitamin 1 tab PO DAILY 12/14/23 12/19/23 History tablet) phentermine 37.5 mg tablet 18.75 mg (1/2 x 37.5 mg) PO QDAY 12/19/23 12/19/23 Rx (Adipex-P) #15 tabs PFSH Medical History Wears glasses Anemia History of echocardiogram Cardiology follow-up encounter Acute conjunctivitis, right eye Tremor of right hand Near syncope Myalgia Influenza due to influenza virus, type A, human Fatigue Encounter for monitoring cardiotoxic drug therapy Anxiety Encounter for immunotherapy Muscle weakness Right flank pain Anemia Tremor Bone pain due to G-CSF CINV (chemotherapy-induced nausea and vomiting) Diarrhea due to drug Ankle edema, bilateral Diarrhea Pneumonia Drug rash COVID-19 Wears contact lenses Cancer Depression Alcohol use Injury of head and neck Non-smoker Breast cancer of upper-outer quadrant of right female breast Fibromyalgia Kidney stones Chronic headaches Surgical History Hx of surgical procedure H/O mastectomy History of breast biopsy S/P medial meniscus repair of right knee S/P tonsillectomy Family History Father AlcoholismMother Hypertension HyperlipidemiaAunt Breast cancer 2 great aunts - both maternal 1 aunt - paternal Social History household members: other details: angeliancesteffany current occupational status: employed current occupation: [employer]. Smoking Status: Never smoker Electronic Cigarette Use: not used second hand exposure: Yes alcohol intake: current alcohol intake frequency: holidays/special occasions only details: occasionally/socially substance use type: does not use caffeine: Yes what type of physical activity do you participate in: aerobics frequency: 1-2 times per week seatbelt use: always do you feel safe at home: Yes HPI BS Details: DIEGO GIL is a 33 year old who presents for preop for sterilization. Female Reproductive History Menopausal Symptoms: No night sweats History 0 Elective abortions Hx Para Spontaneous abortions Hx # Term Pregnancies Ectopic pregnancies Hx # Pregnancies Multiple births # of living children ROS Const Constitutional: Denies fatigue, night sweats, weight gain or weight loss ENT ENT: Reports system reviewed and no additional complaints, except as documented Cardio Card: Denies chest pain Resp Resp: Denies cough or dyspnea GI GI: Reports as per HPI; Denies abdominal pain, constipation, nausea or vomiting : Denies nipple discharge, urinary frequency, urinary incontinence, urinary hesitancy, urinary urgency, vaginal discharge, vaginal dryness, vaginal odor or vaginal pruritus Musc Musc: Denies arthralgias, back pain or muscle weakness Skin Skin/Breast: Denies alopecia, change in hair, dry skin, breast mass, breast pain, breast skin changes or nipple discharge Neuro Neuro: Reports system reviewed and no additional complaints, except as documented Psych Psych: Reports system reviewed and no additional complaints, except as documented Endo Endo: Denies cold intolerance, excessive sweating, heat intolerance or polydipsia Anthony/Lymph Hematologic/Lymphatic: Denies easy bleeding, Denies easy bruising and Denies lymphadenopathy Exam Const General: cooperative, healthy appearing, comfortable and no acute distress Orientation: alert [facility] Head: normal to inspection and normocephalic Ears: hearing grossly normal bilaterally and external ears normal Nose: external nose normal and nares normal Face and sinus: normal facial exam Neck Neck: normal visual inspection and no lymphadenopathy Thyroid: thyroid normal Chest Chest palpation & inspection: normal inspection of the chest Resp Effort & Inspection: normal respiratory effort GI Inspection: normal to inspection and non-distended Palpation: soft and no hepatosplenomegaly Musc Other: gross motor intact no deficits, full bilateral strength Skin General: no rashes or lesions noted Neuro General: patient alert, patient awake, moves all extremities and no focal motor deficits Motor: muscle tone normal throughout Extrem General: normal to inspection and no pedal edema Psych Appearance: grossly normal Mental Status: mental status grossly normal Affect: normal affect Speech and Movement: speech and movement normal Coding Level of Care Code No Charge Diagnoses Sterilization Z30.2 Assessment and Plan Assessment and Plan (1) Sterilization: Status: Acute Comment: discussed options plan laparoscopic bs, ask anesthesia about holding phentermine periop; see above. Medications: Refilled phentermine (Adipex-P) BMI 37 18.75 mg (1/2 x 37.5 mg) PO QDAY 15 tabs 0RF Plan the risk of regret was discussed with her, and she confirmed that her and her partner do not wish to have any children, they have known this for many years. After discussing the patient's diagnosis and treatment plan options, patient wishes to proceed with surgical management. I have discussed with the patient the risks, benefits, and alternatives of the procedure which include but are not limited to risks of anesthesia, bleeding, infection, possible damage to bowel, bladder, or surrounding vasculature which could lead to additional surgery to evaluate any complications. Patient agrees to procedure and wishes to proceed. ACOG/uptodate references given for additional information regarding procedure. UPDATE- I have seen the patient and performed any clinically relevant updates to the history and physical exam. Ana Bowie MD
[2023-12-27 09:34] LABS: Internal QC Validated? YES +Cl - CLEAR BKGD; Pregnancy, Urine Negative Negative
--- NOTE | 2023-12-27 10:30 | PCM.PRE.AN2 ---
ASA Classification* ASA Classification ASA Classification: 2 Assessment & Plan Anesthesia* Anesthesia Assessment Anesthesia Assessment: Discussed sedation and/or anesthesia options, risks, benefits, and alternatives with patient/parents/legal guardian/POA. Questions invited. The patient/parents/legal guardian/POA seems to understand and agrees to proceed with anesthesia plan. Reviewed the physical assessment, medical history, allergy history and patient home medications list prior to surgery/procedure/anesthetic and documented any changes. Performed airway and anesthesia risk assessments. Anesthesia Type Anesthesia Type: General History Source History Obtained from:: Patient and Chart Anesthesia Focused Assessment* Temperature: 98.1 F Pulse Rate: 65 Blood Pressure: 107/55 Respiratory Rate: 18 Pulse Ox: 100 Oxygen Delivery Method: Room Air Airway Assessment Mouth opens: >3 cm Mallampati Score: II Teeth Condition: Intact Neck Range of motion (ROM): Full ROM Focused Labs Anesthesia Preop lab: CBC WBC 7.0 K/mm3 (4.4-11.0) 09/20/23 10:30 RBC 4.47 M/mm3 (4.2-5.4) 09/20/23 10:30 Hgb 13.8 g/dL (12.0-15.0) 09/20/23 10:30 Hct 40.8 % (37-47) 09/20/23 10:30 Plt Count 213 K/mm3 (150-450) 09/20/23 10:30 CHEMISTRY Potassium 4.2 mmol/L (3.5-5.1) 09/20/23 10:30 Sodium 137 mmol/L (136-145) 09/20/23 10:30 Magnesium 2.0 mg/dL (1.6-2.6) 01/05/23 13:00 Phosphorus 2.6 mg/dL (2.5-4.9) 01/05/23 13:00 BUN 19 mg/dL (7-18) H 09/20/23 10:30 Creatinine 0.93 mg/dL (0.55-1.02) 09/20/23 10:30 Glucose 89 mg/dL (74-106) 09/20/23 10:30 TSH 2.19 uIU/mL (0.358-3.74) 10/18/23 13:10 COAG Urine Test Negative Negative 12/27/23 09:08 Tst Clinic Negative 06/08/22 09:12 Pre-Assessment Diagnosis/Proposed Procedure Planned Operative Procedure(s): (B) Laparoscopic, Salpingectomy Anesthesia History 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 When Was Last Pacemaker Check QUESTION #4 FULL TEXT: You/Your Family Experience fever (hyperthermia) with Anesthesia Last Oral Intake Last Oral intake: Last Oral Intake NPO since 15:00 12/27/23 09:55 Meds taken in AM with sips of No 12/27/23 09:55 water? Meds patient instructed to take am of surgery PONV PONV - customer field representative: PONV - customer field representative Female Yes 12/14/23 10:59 HX of Motion Sickness Yes 12/14/23 10:59 HX of N/V After Surgery No 12/14/23 10:59 Non-Smoker Yes 12/14/23 10:59 Duration of Surgery greater No 12/14/23 10:59 than 60 minutes Number of Risk Factors 3 12/14/23 10:59 PONV Score Moderate Risk 12/14/23 10:59 Height & Weight Height & Weight: Anesthesia: Height & Weight Height 5 ft 3 in 12/27/23 09:55 Weight: 90.5 kg 12/27/23 09:55 Body Mass Index (BMI) 35.3 12/27/23 09:55 Respiratory Assessment Respiratory Assessment - customer field representative: Respiratory Tract Infection Hx - customer field representative Hx Respiratory Tract Infection No 12/14/23 10:59 STOP Sleep Apnea STOP Sleep Apnea - customer field representative: STOP Sleep Apnea - customer field representative Hx Hypertension No 12/14/23 10:59 Hx Sleep Apnea No 12/14/23 10:59 CPAP BIPAP Do you snore loudly (louder No 12/14/23 10:59 than talking or can be heard Do you often feel tired/ No 12/14/23 10:59 fatigued/ sleepy during daytime? Has anyone observed you stop No 12/14/23 10:59 breathing during sleep? STOP Results Negative 12/14/23 10:59 QUESTION #5 FULL TEXT : Do you snore loudly (louder than talking or can be heard through closed doors)? 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 Specify any problems Hx of Preganancy in last 3 No 12/14/23 10:59 Months Nurse Filling Out Transfusion VCHRISTIN 12/14/23 10:59 & Questions: Date: 12/14/23 12/14/23 10:59 Time: 11:00 12/14/23 10:59 Patient unable to answer at this time (ie. confused, unrespo /Reproduction History /Reproductive History - customer field representative: /Reproductive Hx- customer field representative Hx Now No 12/14/23 10:59 Gestational Age (in weeks): EDC: Hx Hx Para Hx Section SAB No 12/14/23 10:59 Active Medications Active Medications: Current Medications Generic Name Dose Route Start Last Admin Trade Name Freq PRN Reason Stop Dose Admin Lactated Ringer's 1,000 mls @ 15 mls/hr 12/27/23 09:00 IV .Q48H BRANDAN PFSH Medical History Wears glasses Anemia History of echocardiogram Cardiology follow-up encounter Acute conjunctivitis, right eye Tremor of right hand Near syncope Myalgia Influenza due to influenza virus, type A, human Fatigue Encounter for monitoring cardiotoxic drug therapy Anxiety Encounter for immunotherapy Muscle weakness Right flank pain Anemia Tremor Bone pain due to G-CSF CINV (chemotherapy-induced nausea and vomiting) Diarrhea due to drug Ankle edema, bilateral Diarrhea Pneumonia Drug rash COVID-19 Wears contact lenses Cancer Depression Alcohol use Injury of head and neck Non-smoker Breast cancer of upper-outer quadrant of right female breast Fibromyalgia Kidney stones Chronic headaches Home Medications ?Medication ?Instructions ?Recorded ?Last Taken ?Type acetaminophen 500 mg tablet 1,000 mg PO Q6H PRN PAIN 06/15/21 12/19/23 History (Tylenol Extra Strength) tamoxifen 20 mg tablet 20 mg PO DAILY #90 tabs 02/22/23 12/25/23 Rx Therapuetic Massage #1 ea 08/02/23 Unknown Rx venlafaxine 75 mg capsule,extended 75 mg PO DAILY 09/20/23 12/26/23 History release 24 hr (Effexor XR) glucosamine sulfate 500 mg tablet 500 mg PO DAILY 09/23/23 12/19/23 History (Glucosamine) multivitamin (Daily Multi-Vitamin 1 tab PO DAILY 12/14/23 12/19/23 History tablet) phentermine 37.5 mg tablet 18.75 mg (1/2 x 37.5 mg) PO QDAY 12/19/23 12/19/23 Rx (Adipex-P) #15 tabs Allergy/AdvReac Type Severity Reaction Status Date / Time cefdinir Allergy Mild rash Verified 12/27/23 09:49 Influenza Virus Vaccines Allergy Hives Verified 12/27/23 09:49 Family History Father Alcoholism Mother Hypertension Hyperlipidemia Aunt Breast cancer 2 great aunts - both maternal 1 aunt - paternal Surgical History Hx of surgical procedure H/O mastectomy History of breast biopsy S/P medial meniscus repair of right knee S/P tonsillectomy Social History household members: other details: serena current occupational status: employed current occupation: [employer]. Smoking Status: Never smoker Electronic Cigarette Use: not used second hand exposure: Yes alcohol intake: current alcohol intake frequency: holidays/special occasions only details: occasionally/socially substance use type: does not use caffeine: Yes what type of physical activity do you participate in: aerobics frequency: 1-2 times per week seatbelt use: always do you feel safe at home: Yes Review of Systems (Anesthesia) ROS Narrative System reviewed and no additional complaints, except as documented.
--- NOTE | 2023-12-27 11:23 | OP.PCM_ITS ---
Problems Associated Problem List Diagnoses (1) Sterilization: Report of Operation Date of Procedure: 12/27/23 Pre-Operative Diagnosis: see problem list Post-Operative Diagnosis: same Surgery/Procedure Performed:: laparoscopic bilateral salpingectomy Description of Surgical Findings:: nl uterus tubes ovaries Surgeon: Ana Bowie fan blade truer: [place] Type of Anesthesia: General and Local Specimen's removed: tubes Drains: none Estimated Blood Loss (mL): 50 Fluids Replaced: crystalloid Description of Procedure: Patient was taken in the operating room and was placed under general anesthesia was prepped and draped in normal sterile fashion in the dorsal lithotomy position. Bladder was drained of clear urine and SCDs were on preoperatively. Uterus was sounded and a uterine manipulator was placed after dilating. Attention was then paid to the abdominal portion of the procedure and the umbilicus was elevated with towel clamps and injected with Marcaine and after a 5 mm incision was made and the Veress needle was entered into the abdomen confirmed to be intra-abdominal with a low opening pressure of less than 5 mmHg. Abdomen was insufflated with CO2 gas and a 5 mm optical trocar was placed under direct visualization. A 5 mm port suprapubically was placed under direct visualization. mild sigmoid colon adhesions taken down. Uterus was well v isualized and bilateral fallopian tubes identified and bilateral tubes were elevated and transecting across the mesosalpinx and the attachment to the uterine corpus bilaterally the tubes were removed without complication. Excellent hemostasis was noted. Fallopian tubes were removed through the lower port site without complication. Liver and upper abdomen were visualized notably within normal limits and no other gross abnormalities were seen in the abdomen. All instruments removed from the abdomen after gas was desufflated. Port sites were closed with 3-0 Monocryl Steri's and op sites were applied. All instruments removed from the vagina and patient was awoken and taken recovery in stable condition. Grafts/Implants Used: none Procedure Start Time: 11:25 Procedure Stop Time: 12:21 Complications none Admit VTE Documentation VTE Present on Admission: No VTE Mechan Device Prophylaxis: SCD's Multi Select Codes Urinary/Genital Urinary/Genital CPT Codes: 75786 Laproscopic BS/O
--- NOTE | 2023-12-27 11:24 | PCM.DC ---
Discharge Instructions Diet Discharge Diet: No restrictions Activity Discharge Activity: Return to Normal Activity, May Not Drive (for 2 weeks or while taking narcotic pain meds.), May Shower and May Take a Tub Bath (in 7 days) May resume sexual activity in: 1 week Weight Bearing Status: Full weight bearing Dressing / Incision Call your doctor if your incision/area has: Continuous Slow Oozing, Sudden Increased Bleeding, Increased Pain/ Swelling, Increased Redness and Foul Smelling Discharge Call your doctor if you observe: Fever of 101 or Higher, Using more than 1 pad per hour, Shortness of breath, Chest pain and Uncontrolled pain Suture Line Care: Avoid Pulling/Pushing and Avoid Pinching/Bending Remove Dressing in: 1 week (if present) Cleanse incision/area with: Soap & Water and Keep Dressing Clean & Dry Follow Up Care When: Call to make an appointment with your doctor for a fu/incision check in 1-2 weeks. Test Results: Test results from this visit will be discussed in further detail at your follow-up appointment, if applicable. Discharge Plan Admission Attending Provider: Ana Bowie Primary Care Provider: Chas Bazzi Instructions Print Language: Indonesian Discharge Orders/Prescriptions Prescriptions: New oxycodone-acetaminophen [Percocet] 5-325 mg tablet 1 tab PO Q6H PRN (Reason: pain) 7 Days Qty: 10 0RF naproxen 500 mg tablet 500 mg PO BID PRN PRN (Reason: Pain) Qty: 30 1RF No Action acetaminophen [Tylenol Extra Strength] 500 mg tablet 1,000 mg PO Q6H PRN (Reason: PAIN) venlafaxine [Effexor XR] 75 mg capsule,extended release 24hr 75 mg PO DAILY glucosamine sulfate [Glucosamine] 500 mg tablet 500 mg PO DAILY Rx Instructions: administer with a meal phentermine [Adipex-P] 37.5 mg tablet 18.75 mg PO QDAY Qty: 15 0RF Rx Instructions: BMI 37 multivitamin [Daily Multi-Vitamin] Tablet 1 tab PO DAILY tamoxifen 20 mg tablet 20 mg PO DAILY Qty: 90 3RF (DME) Therapuetic Massage See Rx Instructions .Route .MEDSUPPLY Qty: 1 11RF Rx Instructions: Once monthly to address complaints of generalized myalgias related to the use of endocrine therapy for breast cancer Referrals / Follow Up: Chas Bazzi DO [Primary Care Provider] - Disposition Disposition (needs filled in before D/C Order can be placed): Home, Self Care
[2023-12-27] MEDS: Bupivacaine 0.25% 30 ML Vial (11:59)
--- NOTE | 2023-12-27 12:26 | PCM.POST.ANE ---
Anesthesia: Postop Eval I Current Vital Signs Temperature: 98.2 F Pulse Rate: 71 Blood Pressure: 113/68 Respiratory Rate: 20 Pulse Ox: 98 Oxygen Delivery Method: Room Air Assessment Airway patent: Yes Spontaneous unlabored respirations: Yes Mental status: Awake nausea: No Vomiting: No Anesthesia Complication: No Fluid Hydration Crystalloid volume administer (ml): 850 Total IV fluid infused: 850 Progress Note Anesthesia document: Postop Eval 1 completed: Yes
--- NOTE | 2023-12-27 17:29 | POSTOPAN2_ITS ---
Anesthesia Postop Eval I Sum Postop Eval Completion status Anesthesia document: Postop Eval 1 completed: Yes Anesthesia Postop Eval I Summary Anesthesia Postop Eval I Summary: Anesthesia Postop Eval I: Assessment Summary Airway patent Yes 12/27/23 12:26 EXPLOSIVE SPECIALIST.JDEF Spontaneous unlabored Yes 12/27/23 12:26 EXPLOSIVE SPECIALIST.JDEF respirations Mental status Awake 12/27/23 12:26 EXPLOSIVE SPECIALIST.JDEF nausea No 12/27/23 12:26 EXPLOSIVE SPECIALIST.JDEF Vomiting No 12/27/23 12:26 EXPLOSIVE SPECIALIST.JDEF Anesthesia Postop Eval I: Fluid Summary Crystalloid volume administer 850 12/27/23 12:26 EXPLOSIVE SPECIALIST.JDEF (ml) Colloids volume administered ( ml) Blood Product volume administered (ml) Total IV fluid infused 850 12/27/23 12:26 EXPLOSIVE SPECIALIST.JDEF Anesthesia Postop Eval I: Summary Notes Anesthesia Complication No 12/27/23 12:26 EXPLOSIVE SPECIALIST.JDEF Anesthesia Complication Comment: Post-operative progress note Anesthesia: Postop Eval II Evaluation Mental status: Awake and Calm Pain Level: 1 nausea: No Vomiting: No Complications Anesthesia Complication: No
--- NOTE | 2023-12-27 17:29 | PCM.POSTANE2 ---
Anesthesia Postop Eval I Sum Postop Eval Completion status Anesthesia document: Postop Eval 1 completed: Yes Anesthesia Postop Eval I Summary Anesthesia Postop Eval I Summary: Anesthesia Postop Eval I: Assessment Summary Airway patent Yes 12/27/23 12:26 RADIO PRESENTER.JDEF Spontaneous unlabored Yes 12/27/23 12:26 RADIO PRESENTER.JDEF respirations Mental status Awake 12/27/23 12:26 RADIO PRESENTER.JDEF nausea No 12/27/23 12:26 RADIO PRESENTER.JDEF Vomiting No 12/27/23 12:26 RADIO PRESENTER.JDEF Anesthesia Postop Eval I: Fluid Summary Crystalloid volume administer 850 12/27/23 12:26 RADIO PRESENTER.JDEF (ml) Colloids volume administered ( ml) Blood Product volume administered (ml) Total IV fluid infused 850 12/27/23 12:26 RADIO PRESENTER.JDEF Anesthesia Postop Eval I: Summary Notes Anesthesia Complication No 12/27/23 12:26 RADIO PRESENTER.JDEF Anesthesia Complication Comment: Post-operative progress note Anesthesia: Postop Eval II Evaluation Mental status: Awake and Calm Pain Level: 1 nausea: No Vomiting: No Complications Anesthesia Complication: No
== END 2023-12-27 13:49 | disposition home or self-care (01) ==
LOC: SDC 08:54 → AC 08:55
PROVIDERS: PCP Family Medicine; Referring Provider Obstetrics & Gynecology; Visit Provider Obstetrics & Gynecology
PROC: (CPT 58661; principal; 2023-12-27 10:15)
DX: Z30.2 Encounter for sterilization (principal); Z86.16 Personal history of COVID-19; Z80.3 Family history of malignant neoplasm of breast; Z85.3 Personal history of malignant neoplasm of breast; Z90.10 Acquired absence of unspecified breast and nipple
CPT/HCPCS: 58661; 00840; 81025; 88302; J7120; J2405

== ENCOUNTER → 2024-03-05 | Outpatient (CLI) | payer OTHER, SELFPAY ==
[2024-03-05 12:01] LABS: Anion Gap 5 (5-15); BUN 16 mg/dL (7-18); BUN/Creat Ratio 17.3 RATIO (10-20); Calcium,Total 9.1 mg/dL (8.5-10.1); Chloride 105 mmol/L (98-107); Creatinine, Serum 0.93 mg/dL (0.55-1.02); EST Glomerular Filtration Rate 74 mL/min (>60); Est Glom Filt Rate - Afr Amer 90 mL/min (>60); Glucose 95 mg/dL (74-106); Potassium 3.4 mmol/L (3.5-5.1); Sodium Level 139 mmol/L (136-145)
== END | disposition home or self-care (01) ==
PROVIDERS: PCP Family Medicine; Referring Provider Obstetrics & Gynecology; Visit Provider Obstetrics & Gynecology
DX: E66.89 Other obesity not elsewhere classified (principal)
CPT/HCPCS: 36415; 80048

== ENCOUNTER 2024-10-11 12:58 | Outpatient (RCR) | payer OTHER, SELFPAY ==
--- NOTE | 2024-10-11 13:40 | HP.OTEVAL_ITS ---
Patient's Visit Information Visit Information Visit Information: DIEGO GIL is a 34 year old F, referred to Occupational Therapy by Dr. Chas Bazzi DO, with a diagnosis of R wrist pain. Date of Evaluation: 10/11/24 Occupational Therapist: Randa Pemberton Subjective Subjective: Patient arrived for OT evaluation after injuring R wrist by carrying her laptop with 3-4th fingers around work. Patient presenting with tendonitis of flexor carpi ulnaris based on symptoms. Patient experiencing pain with R ring and pinky finger flexion, opposition, and deviation at the R wrist. Pain R wrist: Current Pain Intensity: 2 Pain Intensity Range: 6 ROM Wrist: R flexion 50, extension 65; L flexion 60, extension 65. 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 Goal:: Patient will report pain of 2 or less at home and at therapy to improve fxnal use of hand. Goal:: Patient will reduce circumferential edema in R hand by .05 cm to improve fxnal use of hand. Goal:: Patient will be indep with HEP to decr pain and improve fxnal use of R hand for ADL's. Rehabilitation General Assessment: Patient arrives after having some right wrist pain for the few months. She reports she injured it at work by carying a laptop around holding it with her R pinky and ring fingers against her forearm and it's caused pain since. She presents with some edema and restricted ROM d/t pain and stiffne ss. Patient would benefit from skilled OT servies 2x/week for 6 weeks to reduce pain/swelling and educate on strategies to prevent further irritation of the ulnar wrist area. Rehabilitation Potential: Good Anticipated Interventions Anticipated Interventions: A/AAROM/PROM, Strengthening, Triggerpoint Release and Modalities Visit Plan Frequency: 1x/Week Duration: 6 Weeks General Plan: 2x/week for 6 weeks working with u/s, soft tissue mobilization, adapting daily living tasks to prevent further irritation and injury, consider splinting and positioning for day and night time TEXT: Thank you for the opportunity to evaluate your patient. For Medicare and Medicare HMO plans, please review the plan of care and approve it. It will need to be FAXED BACK to us at [phone] for Medicare purposes. Please let me know if there are questions or concerns regarding this plan of care. Physician Signature: Date:___
--- NOTE | 2025-01-01 16:01 | HP.OT.NRP ---
Patient Information Patient Information: DIEGO GIL was seen in my office for initial evaluation on 10/11/24. The following Plan of Care was established for this patient: POC Established Initial Frequency: 1x/Week Initial Duration: 6 Weeks Anticipated Interventions Anticipated Interventions: A/AAROM/PROM, Strengthening, Triggerpoint Release and Modalities Last Seen Last Seen: This patient was last seen in our office 10/11/24. Pertinent comments regarding their Occupational therapy will appear below: no further apts have been scheduled and due to time lapse in services pt is d/c at this time. At this point I will be discontinuing this patient from occupational therapy. I would be happy to see this patient again in the future if found appropriate by the physician. Thank you! Loni Little, OTR/L, CHT
== END 2024-10-11 19:00 | disposition home or self-care (01) ==
LOC: OT 12:58
PROVIDERS: PCP Family Medicine; Visit Provider Family Medicine
DX: M25.531 Pain in right wrist (principal)
CPT/HCPCS: 97165

== ENCOUNTER → 2024-11-27 | Outpatient (CLI) | payer OTHER, SELFPAY ==
--- NOTE | 2024-11-27 10:39 | ECHODONC_ITS ---
Reason For Study Reason For Study: CHEMOTHERAPY Procedure This was a 2D Doppler, Color Flow transthoracic echocardiogram. Myocardial strain analysis was performed in this exam to aid in the assessment of cardiac function. Exam performed in department. Left Ventricle Normal LV size. The global longitudinal strain = -18.7 % (normal). Stage 1 diastolic dysfunction. The left ventricular ejection fraction is 60 %. No regional wall motion abnormalities noted. Right Ventricle Normal RV size. Normal systolic function. Atria Normal left atrium. Normal right atrium. Mitral Valve Normal mitral valve. Tricuspid Valve Normal tricuspid valve. Aortic Valve Trisinus/trileaflet aortic valve. Pulmonic Valve Normal pulmonic valve. Great Vessels Normal aortic root. The pulmonary artery is normal size. Inferior vena cava collapse with respiration. Pericardium/Pleural No pericardial effusion. MMode/2D Measurements & Calculations LVIDd: 5.0 cm IVSd: 0.63 cm LVOT diam: 2.2 cm LVIDs: 3.4 cm LVPWd: 0.76 cm LVOT area: 3.8 cm2 RVDd: 4.3 cm FS: 32.3 % asc Aorta Diam: 2.6 cm LAV(MOD-bp): 31.2 ml LVAd ap4: 26.8 cm2 LAV(MOD-bp) Indexed: 16.6 ml/m2 LVLd ap4: 8.0 cm LAV(MOD-sp2): 25.4 ml EDV(MOD-sp4): 76.8 ml LAV(MOD-sp4): 32.6 ml EDV(sp4-el): 76.1 ml LVAs ap4: 15.7 cm2 LVLs ap4: 6.3 cm ESV(MOD-sp4): 32.4 ml ESV(sp4-el): 33.0 ml EF(MOD-sp4): 57.8 % EF(sp4-el): 56.6 % LVAd ap2: 25.6 cm2 SV(MOD-sp4): 44.4 ml SV(MOD-sp2): 39.5 ml LVLd ap2: 8.1 cm SI(MOD-sp4): 23.7 ml/m2 SI(MOD-sp2): 21.1 ml/m2 EDV(MOD-sp2): 69.1 ml EDV(sp2-el): 68.8 ml LVAs ap2: 15.2 cm2 LVLs ap2: 6.7 cm ESV(MOD-sp2): 29.5 ml ESV(sp2-el): 29.6 ml EF(MOD-sp2): 57.3 % SV(sp4-el): 43.0 ml Ao sinus diam: 2.[address] Junction: 2.2 cm LA dimension(2D): 2.6 cm LA A4 area: 14.1 cm2 RA A4 area: 12.1 cm2 TAPSE: 2.1 cm Time Measurements MV dec time: 0.14 sec Doppler Measurements & Calculations MV E max jonathon: 72.2 cm/sec Lat Peak E' Jonathon: 15.2 cm/sec Med Peak E' Jonathon: 14.9 cm/sec MV A max jonathon: 40.3 cm/sec E/E' lat: 4.8 E/E' med: 4.9 MV E/A: 1.8 MV dec slope: 501.3 cm/sec2 Ao V2 max: 109.1 cm/sec LV V1 max: 103.1 cm/sec Ao max P.8 mmHg LV V1 max P.3 mmHg Ao V2 mean: 75.7 cm/sec LV V1 mean P.5 mmHg Ao mean P.6 mmHg LV V1 mean: 73.9 cm/sec Ao V2 VTI: 23.1 cm LV V1 VTI: 22.3 cm AV (velocity ratio): 0.97 ZULEIKA(I,D): 3.7 cm2 ZULEIKA(V,D): 3.6 cm2 SV(LVOT): 85.0 ml PA V2 max: 76.1 cm/sec TR max jonathon: 171.8 cm/sec TR max P.8 mmHg ECHO/ONC Echo Complete Interpretation Summary Normal LV size. The global longitudinal strain = -18.7 % (normal). Stage 1 diastolic dysfunction. The left ventricular ejection fraction is 60 %. Structurally normal valves. Ordering Physician: Salas Benitez Referring Physician: Chas Bazzi Performed By: Eliana Watkins, CONNIE
== END | disposition home or self-care (01) ==
LOC: CVS 10:39
PROVIDERS: PCP Family Medicine; Referring Provider Internal Medicine Cardiovascular Disease; Visit Provider Internal Medicine Cardiovascular Disease
DX: I34.0 Nonrheumatic mitral (valve) insufficiency (principal)
CPT/HCPCS: 93306; 93356

== ENCOUNTER → 2025-04-02 | Outpatient (CLI) | payer OTHER, SELFPAY | END | disposition home or self-care (01) | LOC: MTRAD 13:42 | PROVIDERS: PCP Family Medicine; Referring Provider Chiropractor; Visit Provider Chiropractor | DX: M54.9 Dorsalgia, unspecified (principal) | CPT/HCPCS: 72070; 72110 ==